=== PATIENT | female | born 1960 | race American Indian/Alaskan Native ===

== ENCOUNTER 2017-03-06 08:57 | Outpatient (CLI) | payer OTHER, MEDICARE ==
--- NOTE | 2017-03-06 10:00 | Ultrasound Report ---
ULTRASOUND PELVIC COMPLETE ULTRASOUND TRANSVAGINAL HISTORY: Abdominal and pelvic pain. TECHNIQUE: Transabdominal and transvaginal ultrasound with color doppler interrogation. The uterus and left ovary are not identified on transabdominal or transvaginal ultrasound. Please correlate with surgical history. I believe I see the right ovary which measures 3.9 x 2.0 x 3.3 cm. The right ovary contains a 1.4 cm simple cyst. There is small pelvic ascites. IMPRESSION: 1.4 cm right ovarian cyst. Assumed hysterectomy and left oophorectomy. Small pelvic ascites.
== END 2017-03-06 08:58 | disposition home or self-care (01) ==
LOC: US 08:57
PROVIDERS: ATTEND Internal Medicine
DX: N83.201 Unspecified ovarian cyst, right side (principal); R18.8 Other ascites; I12.0 Hypertensive chronic kidney disease with stage 5 chronic kidney disease or end stage renal disease; N18.6 End stage renal disease; D63.1 Anemia in chronic kidney disease; Z90.710 Acquired absence of both cervix and uterus; Z87.891 Personal history of nicotine dependence
CPT/HCPCS: 76830; 76856

== ENCOUNTER 2017-03-21 07:10 | Day surgery (SDC) | payer OTHER, MEDICARE ==
[2017-03-21 08:19] LABS: INR 0.93 (0.87-1.13)
[2017-03-21 08:20] LABS: Partial Thromboplastin Time 28.5 Sec. (24.2-36.6)
--- NOTE | 2017-03-21 11:24 | Short Stay Summary ---
Short Stay Documentation Date of service: 03/21/17 - History Principal diagnosis: Ascites Past Medical History: renal failure - Allergies and Medications Current Medications: Allergies chlorhexidine Allergy (Verified 06/20/16 08:45) Itching hydralazine Allergy (Verified 06/06/16 14:28) Unknown shellfish derived Allergy (Verified 10/01/14 09:46) Swelling itching iodine Adverse Reaction (Verified 10/06/14 06:31) Swelling shortness of breath Home Medications Medication Instructions Recorded Confirmed Last Taken Type Dialyvite 800 Plus D Wafer 1 tab PO DAILY #0 03/17/15 06/20/16 06/19/16 History Calcium Acetate [Phoslo] 667 mg PO TIDWM capsule 03/24/15 03/21/17 03/20/17 Rx 667mg Nebivolol (Nf) [Bystolic (Nf)] 20 mg PO DAILY 06/06/16 03/21/17 03/20/17 History 5mg Minoxidil [Loniten] 2.5 mg PO DAILY 03/21/17 03/21/17 03/18/17 History 2.5mg - Physical exam General appearance: no acute distress Gastrointestinal: distended - Brief post op/procedure progress note Date of procedure: 03/21/17 Pre-op diagnosis: Ascites Post-op diagnosis: same Procedure: Paracentesis Anesthesia: local Surgeon: GUERRERO NATARAJAN Estimated blood loss: none Specimen disposition: to lab Condition: stable - Disposition Condition at discharge: Good Disposition: DC-01 TO HOME OR SELFCARE
--- NOTE | 2017-03-21 11:27 | Cat Scan Report ---
CT-guided paracentesis. History: Ascites. Procedure: A survey exam revealed moderate ascites. The skin surface overlying the right abdomen was prepped and draped using sterile technique. Local anesthetic was injected in the skin. Using CT guidance, a 5 [place] Yueh catheter was inserted into fluid collection in the right upper quadrant. 1550 cc of clear serous fluid was aspirated and sent for appropriate laboratory studies. The patient tolerated the procedure well clinically and was discharged in satisfactory condition.
[2017-03-21 11:56] VITALS: BP 141/82
[2017-03-21 14:05] LABS: Basophils Body Fluid 0 %; Eosinophils Body Fluid 0 %; Reactive Lymph Body Fluid 0 %
--- NOTE | 2017-03-21 15:03 | Ultrasound Report ---
Ultrasound guided paracentesis. History: Ascites. Procedure: There is a moderate volume of ascitic fluid. The largest collection is located in the right upper quadrant. The patient's skin surface was prepped and draped using sterile technique. Local anesthetic was injected into the skin. Using sonographic guidance, a 5 [place] Yueh catheter was inserted into the region of interest, but no fluid was aspirated on 3 successive occasions. Therefore the patient was transferred to the CT scanner for the procedure was successfully performed. Please see separate report of CT guided paracentesis.
[2017-03-26 23:45] LABS: Total Protein,Body Fluid < 3.0 (15.0-45.0); Triglycerides,Body Fluid 26
== END 2017-03-21 12:00 | disposition home or self-care (01) ==
LOC: CATHLABREC 07:10 → EDSTATUS 09:00 → CATHLABREC 12:00
PROVIDERS: ATTEND Internal Medicine Gastroenterology
DX: R18.8 Other ascites (principal)
CPT/HCPCS: 36415; 49083; 82040; 82150; 84160; 84478; 85610; 85730; 87116; 88112; 88305; 89051; C1729

== ENCOUNTER 2018-02-18 13:31 | Emergency (ER) | payer MEDICARE ==
[2018-02-18 15:08] LABS: Hematocrit 23.6 % (30.3-42.9); Hemoglobin 7.7 gm/dl (10.1-14.3); Mean Corpuscular HGB Conc 33 % (30-34); Mean Corpuscular Hemoglobin 30 pg (28-32); Mean Corpuscular Volume 93 fl (79-97); Platelet Count 295 K/mm3 (140-440); Red Blood Count 2.55 M/mm3 (3.65-5.03); Red Cell Distribution Width 14.5 % (13.2-15.2)
--- NOTE | 2018-02-18 15:12 | Emergency Department Report ---
ED General Adult HPI - General Chief complaint: Recheck/Abnormal Lab/Rx Stated complaint: LOW HEMAGLOBIN Time Seen by Provider: 02/18/18 14:07 Source: patient Mode of arrival: Ambulatory Limitations: No Limitations - History of Present Illness Initial comments: Patient presents to emergency department for abnormal lab value. Patient is a dialysis patient. Peritoneal dialysis and has a history of chronic anemia. Patient sent to the ED because she was told her hemoglobin was 6.2. Patient denies any lightheadedness, chest pain, shortness of breath. Patient has had blood transfusions in the past with the last one being in August of this year. - Related Data Home Medications Medication Instructions Recorded Confirmed Last Taken Dialyvite 800 Plus D Wafer 1 tab PO DAILY #0 03/17/15 06/20/16 06/19/16 Nebivolol (Nf) [Bystolic (Nf)] 20 mg PO DAILY 06/06/16 03/21/17 03/20/17 5mg Minoxidil [Loniten] 2.5 mg PO DAILY 03/21/17 03/21/17 03/18/17 2.5mg Previous Rx's Medication Instructions Recorded Last Taken Type Calcium Acetate [Phoslo] 667 mg PO TIDWM capsule 03/24/15 03/20/17 Rx 667mg Allergies Allergy/AdvReac Type Severity Reaction Status Date / Time chlorhexidine Allergy Itching Verified 06/20/16 08:45 hydralazine Allergy Unknown Verified 06/06/16 14:28 shellfish derived Allergy Swelling Verified 10/01/14 09:46 iodine AdvReac Swelling Verified 10/06/14 06:31 ED Review of Systems ROS: Stated complaint: LOW HEMAGLOBIN Other details as noted in HPI Comment: All other systems reviewed and negative Constitutional: denies: chills, fever Eyes: denies: eye pain, eye discharge, vision change ENT: denies: ear pain, throat pain Respiratory: denies: cough, shortness of breath, wheezing Cardiovascular: denies: chest pain, palpitations Endocrine: no symptoms reported Gastrointestinal: denies: abdominal pain, nausea, diarrhea Genitourinary: denies: urgency, dysuria, discharge Musculoskeletal: denies: back pain, joint swelling, arthralgia Skin: denies: rash, lesions Neurological: denies: headache, weakness, paresthesias Psychiatric: denies: anxiety, depression Hematological/Lymphatic: denies: easy bleeding, easy bruising ED Past Medical Hx - Past Medical History Hx Hypertension: Yes Hx Heart Attack/AMI: No Hx Congestive Heart Failure: No Hx Diabetes: No Hx Deep Vein Thrombosis: No Hx Pulmonary Embolism: Yes (20 YEARS AGO) Hx GERD: Yes Hx Liver Disease: No Hx Renal Disease: Yes (PD) Hx Sickle Cell Disease: No Hx Arthritis: No Hx Headaches / Migraines: Yes Hx Seizures: No Hx Kidney Stones: No Hx Asthma: No Hx COPD: No Hx Dementia: No Hx HIV: No Additional medical history: Bilateral Subdural Hematoma - Surgical History Hx Coronary Stent: No Hx Pacemaker: No Hx Internal Defibrillator: No Hx Cholecystectomy: Yes Hx Breast Surgery: Yes (BREAST AUGMENTATION BILATERAL ) - Social History Smoking Status: Never Smoker Substance Use Type: None - Medications Home Medications: Home Medications Medication Instructions Recorded Confirmed Last Taken Type Dialyvite 800 Plus D Wafer 1 tab PO DAILY #0 03/17/15 06/20/16 06/19/16 History Calcium Acetate [Phoslo] 667 mg PO TIDWM capsule 03/24/15 03/21/17 03/20/17 Rx 667mg Nebivolol (Nf) [Bystolic (Nf)] 20 mg PO DAILY 06/06/16 03/21/17 03/20/17 History 5mg Minoxidil [Loniten] 2.5 mg PO DAILY 03/21/17 03/21/17 03/18/17 History 2.5mg ED Physical Exam - General Limitations: No Limitations General appearance: alert, in no apparent distress - Head Head exam: Present: atraumatic, normocephalic - Eye Eye exam: Present: normal appearance - ENT ENT exam: Present: mucous membranes moist - Neck Neck exam: Present: normal inspection - Respiratory Respiratory exam: Present: normal lung sounds bilaterally. Absent: respiratory distress - Cardiovascular Cardiovascular Exam: Present: regular rate, normal rhythm. Absent: systolic murmur, diastolic murmur, rubs, gallop - GI/Abdominal GI/Abdominal exam: Present: soft, normal bowel sounds. Absent: distended, tenderness - Rectal Rectal exam: Present: heme (-) stool, other (chaperoned by nurse Kalyan De Los Santos) - Extremities Exam Extremities exam: Present: normal inspection - Back Exam Back exam: Present: normal inspection - Neurological Exam Neurological exam: Present: alert, oriented X3, CN II-XII intact. Absent: motor sensory deficit - Psychiatric Psychiatric exam: Present: normal affect, normal mood - Skin Skin exam: Present: warm, dry, intact, normal color. Absent: rash ED Course Vital Signs 02/18/18 13:43 Temperature 99.4 F Pulse Rate 81 Respiratory 18 Rate Blood Pressure 120/80 O2 Sat by Pulse 99 Oximetry ED Medical Decision Making - Lab Data Result diagrams: 02/18/18 13:48 02/18/18 14:30 - Medical Decision Making Discussed results with patient and with a hemoglobin of 7.7 blood transfusion is not required. Patient states that she is aware of that and will follow up with a associate professor of history for possible Epogen shot Critical care attestation.: If time is entered above; I have spent that time in minutes in the direct care of this critically ill patient, excluding procedure time. ED Disposition Clinical Impression: Anemia in chronic kidney disease Disposition: DC-01 TO HOME OR SELFCARE Is pt being admited?: No Does the pt Need Aspirin: No Condition: Stable Instructions: Anemia (ED) Additional Instructions: Return if worse Referrals: MITZI ANTHONY MD [Staff Physician] - 3-[address] [facility] [Outside] - 3-5 Days Time of Disposition: 15:49
[2018-02-18 15:26] LABS: Albumin 2.9 g/dL (3.9-5); Calcium 7.3 mg/dL (8.4-10.2)
[2018-02-18 16:19] VITALS: BP 95/53
[2018-02-18 17:28] LABS: INR 0.91 (0.87-1.13)
[2018-02-18 17:29] LABS: Partial Thromboplastin Time 33.7 Sec. (24.2-36.6)
== END 2018-02-18 16:20 | disposition home or self-care (01) ==
LOC: ED 13:31
DX: I12.0 Hypertensive chronic kidney disease with stage 5 chronic kidney disease or end stage renal disease (principal); N18.6 End stage renal disease; D63.1 Anemia in chronic kidney disease; G43.909 Migraine, unspecified, not intractable, without status migrainosus; Z99.2 Dependence on renal dialysis; Z90.49 Acquired absence of other specified parts of digestive tract; Z88.8 Allergy status to other drugs, medicaments and biological substances; Z91.013 Allergy to seafood
CPT/HCPCS: 36415; 80053; 85027; 85610; 85730; 86850; 86900; 86901; 99283

== ENCOUNTER 2018-09-16 02:58 | Inpatient (IN) | payer MEDICARE ==
--- NOTE | 2018-09-16 03:39 | XRay Report ---
FINAL REPORT PROCEDURE: XR CHEST ROUTINE 2V TECHNIQUE: PA and lateral chest radiographs were obtained. CPT 17769 HISTORY: KORY COMPARISON: No prior studies are available for comparison. FINDINGS: Heart: Normal. Mediastinum/Vessels: Normal. Lungs/Pleural space: Normal. Bony thorax: No acute osseous abnormality. Other: IMPRESSION: Normal examination.
[2018-09-16 03:53] LABS: Basophils # (Auto) 0.1 K/mm3 (0.0-0.1); Basophils % (Auto) 0.6 % (0.0-1.8); Eosinophils # (Auto) 0.1 K/mm3 (0.0-0.4); Eosinophils % (Auto) 1.5 % (0.0-4.3); Hematocrit 28.3 % (30.3-42.9); Hemoglobin 9.2 gm/dl (10.1-14.3); Lymphocytes # (Auto) 0.8 K/mm3 (1.2-5.4); Lymphocytes % (Auto) 8.8 % (13.4-35.0); Mean Corpuscular HGB Conc 32 % (30-34); Mean Corpuscular Volume 89 fl (79-97); Monocytes % (Auto) 10.8 % (0.0-7.3); Platelet Count 283 K/mm3 (140-440); Red Cell Distribution Width 14.8 % (13.2-15.2)
[2018-09-16 04:07] LABS: Calcium 7.5 mg/dL (8.4-10.2)
[2018-09-16 04:31] LABS: Chol/HDL Ratio 2.53 %
[2018-09-16] MEDS ORDERED: ASPIRIN PO ONE (04:36)
[2018-09-16] MEDS ORDERED: NACL 0.9% 250ML 250 ML IV ONE (04:44)
[2018-09-16] MEDS: NACL 0.9% 500 ML 500 ML IV ONE ×2 (06:12→07:28)
[2018-09-16] MEDS ORDERED: SUBLIMAZE IV ONE ×2 (06:19→10:55)
[2018-09-16] MEDS ORDERED: NITROSTAT SL PRN (06:20)
--- NOTE | 2018-09-16 06:21 | Emergency Department Report ---
ED General Adult HPI - General Chief complaint: Chest Pain Stated complaint: KORY Time Seen by Provider: 09/16/18 06:09 Source: patient, RN notes reviewed, old records reviewed Mode of arrival: Ambulatory Limitations: Physical Limitation - History of Present Illness Initial comments: This is a 58-year-old female. The patient is not known to this provider. The patient has a past medical history of anemia, pulmonary embolism, hypertension, end-stage renal disease, currently on peritoneal dialysis. The patients private commercial insulator is Dr. Mccullough. The patient presents to the emergency room today with a complaint of chest pain. The chest pain is central and sharp. It is associated with back pain. It increases with palpation, deep inspiration and position. The patient denies vomiting, hematemesis. The patient denies leg pain, leg swelling. In the emergency room, the patient is found to be hypotensive, with a blood pressure anywhere from the 60s to the 80s. She is given IV fluids and pain medication. The patient's pain persisted. Give n history of end-stage renal disease, chest pain and hypotension, an emergent CT angiogram of the chest is obtained, after discussion with patient and her consulting commercial insulator, which is negative for pulmonary embolus. Given her history of end-stage renal disease on dialysis, with hypotension and positional chest pain, we were concerned about a possible pericardial effusion or Not. This provider attempted a bedside ultrasound to assess for left ventricular systolic function, and to assess for effusion, however the patient had difficulty cooperating with the exam, and this provider was not able to obtain accurate images to exclude large effusion or tamponade. Therefore, an emergent cardiology consultation was requested, as well as an emergent echocardiogram. Discussed the case with covering glass smoother, Dr. Echevarria, who indicated their group could interpret echocardiogram, and indicated their group could consult on the patient once admitted. The echocardiogram did not demonstrate any evidence of effusion, tampanode, demonstrated essentially intact left ventricular systolic function. Patient given 2 L IV fluid and pain medication, and still hypotensive. Therefore, a central line was placed. Risks, benefits, alternatives discussed with patient and , who gave written and informed consent for central line. Attempted placement into the left internal jugular vein, however, this was not successful, as the vein was very difficult to cannulate secondary to persistent collapse. Therefore, a sterile left groin central line was placed using ultrasound guidance, with no difficulty, with no obvious complications. The patient was started on norepinephrine, and the patient was admitted to the medical service, under the service of Dr. Murray, and critical care physician, Dr. Bravo, will follow consultation. Currently blood pressure in the high 90s, on norepinephrine infusion. Patient and family updated on laboratory studies and an status. -: Gradual Location: chest, back Quality: aching Consistency: intermittent Improves with: other Worsens with: other Associated Symptoms: chest pain, cough, loss of appetite, malaise, shortness of breath, weakness. denies: confusion, diaphoresis, fever/chills, headaches, nausea/vomiting, rash, seizure, syncope - Related Data Home Medications Medication Instructions Recorded Confirmed Last Taken Ergocalciferol (Vitamin D2) 50,000 unit PO QWEEK 09/16/18 09/16/18 Unknown [Drisdol] Hydrocortisone [Anucort-HC SUPPOS] 25 mg RC BID 09/16/18 09/16/18 Unknown Ondansetron [Zofran TAB] 4 mg PO Q8HR PRN 09/16/18 09/16/18 Unknown Zolpidem [Ambien] 10 mg PO QHS 09/16/18 09/16/18 Unknown Allergies Allergy/AdvReac Type Severity Reaction Status Date / Time chlorhexidine Allergy Itching Verified 06/20/16 08:45 hydralazine Allergy Unknown Verified 06/06/16 14:28 shellfish derived Allergy Swelling Verified 10/01/14 09:46 iodine AdvReac Swelling Verified 10/06/14 06:31 ED Review of Systems ROS: Stated complaint: KORY Other details as noted in HPI Constitutional: malaise Eyes: denies: vision change ENT: congestion Respiratory: denies: wheezing Cardiovascular: chest pain Gastrointestinal: denies: abdominal pain Genitourinary: denies: discharge Musculoskeletal: arthralgia Skin: denies: lesions Neurological: weakness Psychiatric: anxiety ED Past Medical Hx - Past Medical History Previous Medical History?: Yes Hx Hypertension: Yes Hx Heart Attack/AMI: No Hx Congestive Heart Failure: No Hx Diabetes: No Hx Deep Vein Thrombosis: No Hx Pulmonary Embolism: Yes (20 YEARS AGO) Hx GERD: Yes Hx Liver Disease: No Hx Renal Disease: Yes (PD) Hx Sickle Cell Disease: No Hx Arthritis: No Hx Headaches / Migraines: Yes Hx Seizures: No Hx Kidney Stones: No Hx Asthma: No Hx COPD: No Hx Dementia: No Hx HIV: No Additional medical history: Bilateral Subdural Hematoma,Pancreatitis 02/2018, dialysis - Surgical History Past Surgical History?: Yes Hx Coronary Stent: No Hx Pacemaker: No Hx Internal Defibrillator: No Hx Cholecystectomy: Yes Hx Breast Surgery: Yes (BREAST AUGMENTATION BILATERAL ) Additional Surgical History: hysterectomy,gastric bypass, dialysis fistula left arm, Peritoneal Dialysis - Social History Smoking Status: Former Smoker Substance Use Type: None - Medications Home Medications: Home Medications Medication Instructions Recorded Confirmed Last Taken Type Ergocalciferol (Vitamin D2) 50,000 unit PO QWEEK 09/16/18 09/16/18 Unknown History [Drisdol] Hydrocortisone [Anucort-HC SUPPOS] 25 mg RC BID 09/16/18 09/16/18 Unknown History Ondansetron [Zofran TAB] 4 mg PO Q8HR PRN 09/16/18 09/16/18 Unknown History Zolpidem [Ambien] 10 mg PO QHS 09/16/18 09/16/18 Unknown History ED Physical Exam - General Limitations: Physical Limitation General appearance: alert, anxious, in distress - Head Head exam: Present: atraumatic, normocephalic - Eye Eye exam: Present: normal appearance, EOMI. Absent: nystagmus - ENT ENT exam: Present: normal exam, normal orophraynx, mucous membranes moist, normal external ear exam - Neck Neck exam: Present: normal inspection, full ROM. Absent: tenderness, meningismus - Respiratory Respiratory exam: Present: decreased breath sounds. Absent: respiratory distress, rales, rhonchi, stridor - Cardiovascular Cardiovascular Exam: Present: regular rate, normal rhythm, normal heart sounds. Absent: bradycardia, tachycardia, irregular rhythm, systolic murmur, diastolic murmur, rubs, gallop - GI/Abdominal GI/Abdominal exam: Present: soft, other (there is a peritoneal dialysis access catheter noted, with no redness, pus, streaking.). Absent: distended, tenderness, guarding, rigid, pulsatile mass - Extremities Exam Extremities exam: Present: normal inspection (left upper extremity fistula, with no redness, pus or streaking), full ROM, other (2+ pulses noted in the bilateral upper, lower extremities. Compartments soft. No long bony tenderness. The pelvis is stable.). Absent: joint swelling, calf tenderness - Back Exam Back exam: Present: normal inspection, full ROM. Absent: tenderness, CVA tenderness (R), paraspinal tenderness, vertebral tenderness - Neurological Exam Neurological exam: Present: alert, other (Extraocular movements intact. Tongue midline. No facial droop. Facial sensation intact to light touch in the V1, V2, V3 distribution bilaterally. 5 and 5 strength in 4 extremities.. Sensation is intact to light touch in 4 extremities.). Absent: motor sensory deficit - Psychiatric Psychiatric exam: Present: normal affect, normal mood - Skin Skin exam: Present: warm, dry, intact, normal color. Absent: rash ED Course Vital Signs 09/16/18 09/16/18 09/16/18 04:46 05:00 05:16 Pulse Rate 81 78 76 Respiratory 22 19 16 Rate Blood Pressure 83/50 83/50 78/45 Blood Pressure [Right] O2 Sat by Pulse 98 99 Oximetry 09/16/18 09/16/18 09/16/18 05:30 05:46 06:22 Pulse Rate 79 88 Respiratory 17 26 H Rate Blood Pressure 78/45 77/44 78/45 Blood Pressure [Right] O2 Sat by Pulse 86 90 Oximetry 09/16/18 09/16/18 09/16/18 06:30 06:46 06:48 Pulse Rate Respiratory Rate Blood Pressure 78/45 77/44 Blood Pressure 60/40 [Right] O2 Sat by Pulse 96 99 Oximetry 09/16/18 09/16/18 09/16/18 07:00 07:16 07:30 Pulse Rate 71 74 Respiratory 20 18 Rate Blood Pressure 77/44 82/45 82/38 Blood Pressure [Right] O2 Sat by Pulse 99 100 95 Oximetry 09/16/18 09/16/18 09/16/18 07:45 07:54 08:00 Pulse Rate 76 70 70 Respiratory 22 23 Rate Blood Pressure 82/45 72/33 Blood Pressure 81/40 [Right] O2 Sat by Pulse 98 100 Oximetry 09/16/18 09/16/18 09/16/18 08:15 08:30 08:45 Pulse Rate 71 71 72 Respiratory 16 23 18 Rate Blood Pressure 67/37 70/32 92/44 Blood Pressure [Right] O2 Sat by Pulse 100 100 95 Oximetry 09/16/18 09/16/18 09/16/18 09:00 09:16 09:30 Pulse Rate 71 70 Respiratory 16 16 Rate Blood Pressure 82/48 82/48 82/48 Blood Pressure [Right] O2 Sat by Pulse 99 100 99 Oximetry 09/16/18 09/16/18 09/16/18 09:46 10:00 10:16 Pulse Rate 71 76 81 Respiratory 21 17 20 Rate Blood Pressure 82/48 82/48 92/52 Blood Pressure [Right] O2 Sat by Pulse 95 97 96 Oximetry 09/16/18 09/16/18 09/16/18 10:30 10:46 11:00 Pulse Rate 80 80 76 Respiratory 20 22 15 Rate Blood Pressure 95/54 95/46 90/49 Blood Pressure [Right] O2 Sat by Pulse 94 98 97 Oximetry 09/16/18 09/16/18 09/16/18 11:15 11:30 11:45 Pulse Rate 80 71 75 Respiratory 18 17 14 Rate Blood Pressure 76/48 97/55 95/53 Blood Pressure [Right] O2 Sat by Pulse 96 100 100 Oximetry - Central Line Placement Left Femoral Consent Obtained: verbal consent, written consent, emergent situation Time Out Performed: Yes Patient Placed on Monitor/Pulse Ox: Yes Prep: mask, gown, gloves Central Line Prep: Povidone-Iodine 1%, Chlorhexidine scrub Local Anesthesia Used: Lidocaine 1%, with Epi Amount of Anesthesia Used (mls): 15 Ultrasound Used for Placement: Yes Central Line Lumen Inserted: triple Bloods Obtained for Lab: Yes Central Line Position: good blood return, all ports aspirated, flus, sutured in place with 2-0 Dressing Applied: Tegaderm Patient Tolerated Procedure: well Complications: none Additional Comments: Initially attempted left internal jugular cannulation, after standard sterile barrier technique, and infused 10 mL of 1% lidocaine with epinephrine into the left neck. The internal jugular vein was visualized, and collapse, but was able to be cannulated with some blood return. However, once the guidewire was inserted, there was resistance. Therefore, this was aborted, in favor of the left femoral line. The patient tolerated this adequately. No untoward complications noted. ED Medical Decision Making - Lab Data Result diagrams: 09/16/18 03:29 09/16/18 03:29 Vital Signs 09/16/18 09/16/18 09/16/18 04:46 05:00 05:16 Pulse Rate 81 78 76 Respiratory 22 19 16 Rate Blood Pressure 83/50 83/50 78/45 Blood Pressure [Right] O2 Sat by Pulse 98 99 Oximetry 09/16/18 09/16/18 09/16/18 05:30 05:46 06:22 Pulse Rate 79 88 Respiratory 17 26 H Rate Blood Pressure 78/45 77/44 78/45 Blood Pressure [Right] O2 Sat by Pulse 86 90 Oximetry 09/16/18 09/16/18 09/16/18 06:30 06:46 06:48 Pulse Rate Respiratory Rate Blood Pressure 78/45 77/44 Blood Pressure 60/40 [Right] O2 Sat by Pulse 96 99 Oximetry 09/16/18 09/16/18 09/16/18 07:00 07:16 07:30 Pulse Rate 71 74 Respiratory 20 18 Rate Blood Pressure 77/44 82/45 82/38 Blood Pressure [Right] O2 Sat by Pulse 99 100 95 Oximetry 09/16/18 09/16/18 09/16/18 07:45 07:54 08:00 Pulse Rate 76 70 70 Respiratory 22 23 Rate Blood Pressure 82/45 72/33 Blood Pressure 81/40 [Right] O2 Sat by Pulse 98 100 Oximetry 09/16/18 09/16/18 09/16/18 08:15 08:30 08:45 Pulse Rate 71 71 72 Respiratory 16 23 18 Rate Blood Pressure 67/37 70/32 92/44 Blood Pressure [Right] O2 Sat by Pulse 100 100 95 Oximetry 09/16/18 09/16/18 09/16/18 09:00 09:16 09:30 Pulse Rate 71 70 Respiratory 16 16 Rate Blood Pressure 82/48 82/48 82/48 Blood Pressure [Right] O2 Sat by Pulse 99 100 99 Oximetry 09/16/18 09/16/18 09/16/18 09:46 10:00 10:16 Pulse Rate 71 76 81 Respiratory 21 17 20 Rate Blood Pressure 82/48 82/48 92/52 Blood Pressure [Right] O2 Sat by Pulse 95 97 96 Oximetry 09/16/18 09/16/18 09/16/18 10:30 10:46 11:00 Pulse Rate 80 80 76 Respiratory 20 22 15 Rate Blood Pressure 95/54 95/46 90/49 Blood Pressure [Right] O2 Sat by Pulse 94 98 97 Oximetry 09/16/18 09/16/18 09/16/18 11:15 11:30 11:45 Pulse Rate 80 71 75 Respiratory 18 17 14 Rate Blood Pressure 76/48 97/55 95/53 Blood Pressure [Right] O2 Sat by Pulse 96 100 100 Oximetry Lab Results 09/16/18 09/16/18 09/16/18 Range/Units 03:29 03:29 06:03 WBC 8.9 (4.5-11.0) K/mm3 RBC 3.20 L (3.65-5.03) M/mm3 Hgb 9.2 L (10.1-14.3) gm/dl Hct 28.3 L (30.3-42.9) % MCV 89 (79-97) fl MCH 29 (28-32) pg MCHC 32 (30-34) % RDW 14.8 (13.2-15.2) % Plt Count 283 (140-440) K/mm3 Lymph % (Auto) 8.8 L (13.4-35.0) % [place] % (Auto) 10.8 H (0.0-7.3) % Eos % (Auto) 1.5 (0.0-4.3) % Baso % (Auto) 0.6 (0.0-1.8) % Lymph # 0.8 L (1.2-5.4) K/mm3 [place] # 1.0 H (0.0-0.8) K/mm3 Eos # 0.1 (0.0-0.4) K/mm3 Baso # 0.1 (0.0-0.1) K/mm3 Seg Neutrophils % 78.3 H (40.0-70.0) % Seg Neutrophils # 7.0 (1.8-7.7) K/mm3 PT (12.2-14.9) Sec. INR (0.87-1.13) D-Dimer (0-234) ng/mlDDU Sodium 137 (137-145) mmol/L Potassium 3.3 L (3.6-5.0) mmol/L Chloride 95.0 L (98-107) mmol/L Carbon Dioxide 20 L (22-30) mmol/L Anion Gap 25 mmol/L BUN 81 H (7-17) mg/dL Creatinine 16.4 H (0.7-1.2) mg/dL Estimated GFR 3 ml/min BUN/Creatinine Ratio 5 % Glucose 127 H (65-100) mg/dL Calcium 7.5 L (8.4-10.2) mg/dL Troponin T 0.100 H 0.082 H (0.00-0.029) ng/mL NT-Pro-B Natriuret Pep (0-900) pg/mL Triglycerides 68 (2-149) mg/dL Cholesterol 226 H (50-199) mg/dL LDL Cholesterol Direct 150 H (50-130) mg/dL HDL Cholesterol 89 H (40-59) mg/dL Cholesterol/HDL Ratio 2.53 % 09/16/18 09/16/18 09/16/18 Range/Units 06:44 06:44 09:31 WBC (4.5-11.0) K/mm3 RBC (3.65-5.03) M/mm3 Hgb (10.1-14.3) gm/dl Hct (30.3-42.9) % MCV (79-97) fl MCH (28-32) pg MCHC (30-34) % RDW (13.2-15.2) % Plt Count (140-440) K/mm3 Lymph % (Auto) (13.4-35.0) % [place] % (Auto) (0.0-7.3) % Eos % (Auto) (0.0-4.3) % Baso % (Auto) (0.0-1.8) % Lymph # (1.2-5.4) K/mm3 [place] # (0.0-0.8) K/mm3 Eos # (0.0-0.4) K/mm3 Baso # (0.0-0.1) K/mm3 Seg Neutrophils % (40.0-70.0) % Seg Neutrophils # (1.8-7.7) K/mm3 PT 12.6 (12.2-14.9) Sec. INR 0.90 (0.87-1.13) D-Dimer 301.01 H (0-234) ng/mlDDU Sodium (137-145) mmol/L Potassium (3.6-5.0) mmol/L Chloride (98-107) mmol/L Carbon Dioxide (22-30) mmol/L Anion Gap mmol/L BUN (7-17) mg/dL Creatinine (0.7-1.2) mg/dL Estimated GFR ml/min BUN/Creatinine Ratio % Glucose (65-100) mg/dL Calcium (8.4-10.2) mg/dL Troponin T 0.065 H D (0.00-0.029) ng/mL NT-Pro-B Natriuret Pep 4189 H (0-900) pg/mL Triglycerides (2-149) mg/dL Cholesterol (50-199) mg/dL LDL Cholesterol Direct (50-130) mg/dL HDL Cholesterol (40-59) mg/dL Cholesterol/HDL Ratio % - EKG Data -: EKG Interpreted by Ct EKG shows normal: sinus rhythm Rate: normal - EKG Data 09/16/18 12:00 Sinus, 79 bpm, left axis deviation, borderline left anterior fascicular block, low voltage, QTC prolonged, poor R-wave progression, abnormal EKG, not consistent with ST elevation myocardial infarction, appears grossly unchanged from prior EKG from March 2015, with the exception of a pseudo-normalized T- wave in V2. This EKG is not a STEMI - Radiology Data Radiology results: report reviewed, image reviewed X-ray the chest is negative for acute disease. CT scan of the chest is negative for acute disease. Echocardiogram shows no large effusion, and preserved ejection fraction. Critical Care Time: Yes Critical care time in (mins) excluding proc time.: 60 Critical care attestation.: If time is entered above; I have spent that time in minutes in the direct care of this critically ill patient, excluding procedure time. Critical Care Time: Critical care time includes multiple bedside evaluations, interpretation of laboratory studies, radiology studies, multiple re-evaluations with the patient and her family, explanation of significance of findings, and discussion with multiple consulting services, including hospital medicine, critical care medicine, cardiology. This does not include procedure time. ED Disposition Clinical Impression: Chest pain, ESRD (end stage renal disease), Hypotension Disposition: OP ADMIT IP TO THIS HOSP Is pt being admited?: Yes Does the pt Need Aspirin: No Condition: Critical Instructions: Chest Pain (ED) Referrals: JANICE GONZALEZ [Primary Care Provider] - 3-5 Days
[2018-09-16] MEDS ORDERED: NACL 0.9% 500 ML 500 ML IV ONE ×2 (06:49→08:06)
[2018-09-16] MEDS ORDERED: BENADRYL IV ONE (07:00)
[2018-09-16] MEDS ORDERED: PEPCID IV ONE (07:00)
[2018-09-16] MEDS ORDERED: SOLU-Medrol IV ONE (07:00)
[2018-09-16 07:10] LABS: INR 0.9 (0.87-1.13)
[2018-09-16] MEDS ORDERED: XYLOCAINE 2%/ EPI 1:200,000 INFILTRATI ONE (08:45)
[2018-09-16] MEDS ORDERED: LEVOPHED DRIP 4 MG/NS 250 ML 0 MG/0 ML BAG IV ONE (08:45)
[2018-09-16] MEDS ORDERED: XYLOCAINE 1%/ EPI 1:100,000 INFILTRATI ONE (08:54)
[2018-09-16] MEDS ORDERED: LEVOPHED DRIP 4 MG/NS 250 ML 4 MG/250 ML BAG IV SCH (09:00)
[2018-09-16] MEDS: LEVOPHED DRIP 4 MG/NS 250 ML 4 MG/250 ML BAG IV SCH (09:00)
[2018-09-16] MEDS ORDERED: NACL 0.9% 1000 ML 1,000 ML IV ONE (09:19)
--- NOTE | 2018-09-16 09:40 | History and Physical Report ---
History of Present Illness Date of examination: 09/16/18 Chief complaint: Chest pain History of present illness: 58-year-old -[place] female with past medical history significant for en d-stage renal disease on PD, gastroparesis, anxiety, hypertension presented to the emergency department with complaints of chest pain that started yesterday around lunchtime. Midsternal constant chest pain, 10 out of 10 intensity, sharp, with radiation to the back, associated shortness of breath, no other aggravating or aggravating factors identified. Patient is complaining dizziness but didn't passed out. In the emergency department patient was hypotensive and was given IV fluids with significant improvement, central line was placed and was placed on norepinephrine. REVIEW OF SYSTEMS: GENERAL: no weight change, no fatigue, no fever HEAD: no head ache EYES: no blurry vision, no acute visual loss EARS: no hearing loss, no discharge, no earache NOSE: no stuffiness, no sneezing, no discharge MOUTH, THROAT AND NECK: no bleeding gums, no sore throat, no swollen neck CARDIAC: As stated in HPI. RESPIRATORY: As stated in the HPI. GI: no decreased appetite, no nausea, no vomiting, no dysphagia, no diarrhea, no constipation, no abdominal pain URINARY: no change in frequency, no urgency, no polyuria, no hematuria, no incontinence MUSCULOSKELETAL: no muscle weakness, no pain, no joint stiffness NEUROLOGIC: no loss of sensation/numbness, no tingling, no tremors, no weakness/paralysis HEMATOLOGIC: no anemia, no easy bruising SKIN: no rashes ENDOCRINE: no heat/cold intolerance, no polyuria, no polydipsia, no thyroid problems, no diabetes PSYCHIATRIC: no anxiety, no depression, no suicidal ideations Past History Past Medical History: hypertension, renal failure Past Surgical History: hysterectomy Social history: full code. denies: smoking, alcohol abuse, prescription drug abuse, IV drug use Family history: no significant family history Medications and Allergies Allergies Allergy/AdvReac Type Severity Reaction Status Date / Time chlorhexidine Allergy Itching Verified 06/20/16 08:45 hydralazine Allergy Unknown Verified 06/06/16 14:28 shellfish derived Allergy Swelling Verified 10/01/14 09:46 iodine AdvReac Swelling Verified 10/06/14 06:31 Home Medications Medication Instructions Recorded Confirmed Last Taken Type Ergocalciferol (Vitamin D2) 50,000 unit PO QWEEK 09/16/18 09/16/18 Unknown History [Drisdol] Hydrocortisone [Anucort-HC SUPPOS] 25 mg RC BID 09/16/18 09/16/18 Unknown History Ondansetron [Zofran TAB] 4 mg PO Q8HR PRN 09/16/18 09/16/18 Unknown History Zolpidem [Ambien] 10 mg PO QHS 09/16/18 09/16/18 Unknown History Active Meds: Active Medications Norepinephrine (Levophed Drip 4 Mg/Ns 250 Ml) 4 mg in 250 mls @ 7.5 mls/hr IV TITR DIMITRI; Protocol Sodium Chloride (Nacl 0.9% 1000 Ml) 1,000 mls @ 999 mls/hr IV BOLUS ONE Stop: 09/16/18 10:19 Cefepime HCl (Maxipime/Ns 1 Gm/100 Ml) 1 gm in 100 mls @ 200 mls/hr IV Q8HR DIMITRI; Protocol Sodium Chloride (Nacl 0.9% 1000 Ml) 2,000 mls @ 999 mls/hr IV DIRECT DIMITRI Exam - Physical Exam Narrative exam: Patient was in distress from pain The patient appeared well nourished and normally developed. Vital signs as documented. Head exam is unremarkable. No scleral icterus . Neck is without jugular venous distension, thyromegaly, or carotid bruits. Lungs are clear to auscultation. Cardiac exam reveals regular rate and Rhythm. Abdominal exam reveals normal bowel sounds, no masses, no organomegaly and no aortic enlargement. Extremities are nonedematous and both femoral and pedal pulses are normal. 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 No focal weakness. - Constitutional Vitals: Temp Pulse Resp BP Pulse Ox 72 18 82/48 99 09/16/18 08:45 09/16/18 08:45 09/16/18 09:00 09/16/18 09:00 Results - Labs CBC & Chem 7: 09/16/18 03:29 09/16/18 03:29 Labs: Laboratory Last Values WBC 8.9 K/mm3 (4.5-11.0) 09/16/18 03:29 RBC 3.20 M/mm3 (3.65-5.03) L 09/16/18 03:29 Hgb 9.2 gm/dl (10.1-14.3) L 09/16/18 03:29 Hct 28.3 % (30.3-42.9) L 09/16/18 03:29 MCV 89 fl (79-97) 09/16/18 03:29 MCH 29 pg (28-32) 09/16/18 03:29 MCHC 32 % (30-34) 09/16/18 03:29 RDW 14.8 % (13.2-15.2) 09/16/18 03:29 Plt Count 283 K/mm3 (140-440) 09/16/18 03:29 Lymph % (Auto) 8.8 % (13.4-35.0) L 09/16/18 03:29 [place] % (Auto) 10.8 % (0.0-7.3) H 09/16/18 03:29 Eos % (Auto) 1.5 % (0.0-4.3) 09/16/18 03:29 Baso % (Auto) 0.6 % (0.0-1.8) 09/16/18 03:29 Lymph # 0.8 K/mm3 (1.2-5.4) L 09/16/18 03:29 [place] # 1.0 K/mm3 (0.0-0.8) H 09/16/18 03:29 Eos # 0.1 K/mm3 (0.0-0.4) 09/16/18 03:29 Baso # 0.1 K/mm3 (0.0-0.1) 09/16/18 03:29 Seg Neutrophils % 78.3 % (40.0-70.0) H 09/16/18 03:29 Seg Neutrophils # 7.0 K/mm3 (1.8-7.7) 09/16/18 03:29 PT 12.6 Sec. (12.2-14.9) 09/16/18 06:44 INR 0.90 (0.87-1.13) 09/16/18 06:44 D-Dimer 301.01 ng/mlDDU (0-234) H 09/16/18 06:44 Sodium 137 mmol/L (137-145) 09/16/18 03:29 Potassium 3.3 mmol/L (3.6-5.0) L 09/16/18 03:29 Chloride 95.0 mmol/L (98-107) L 09/16/18 03:29 Carbon Dioxide 20 mmol/L (22-30) L 09/16/18 03:29 Anion Gap 25 mmol/L 09/16/18 03:29 BUN 81 mg/dL (7-17) H 09/16/18 03:29 Creatinine 16.4 mg/dL (0.7-1.2) H 09/16/18 03:29 Estimated GFR 3 ml/min 09/16/18 03:29 BUN/Creatinine Ratio 5 % 09/16/18 03:29 Glucose 127 mg/dL (65-100) H 09/16/18 03:29 Calcium 7.5 mg/dL (8.4-10.2) L 09/16/18 03:29 Troponin T 0.082 ng/mL (0.00-0.029) H 09/16/18 06:03 NT-Pro-B Natriuret Pep 4189 pg/mL (0-900) H 09/16/18 06:44 Triglycerides 68 mg/dL (2-149) 09/16/18 03:29 Cholesterol 226 mg/dL (50-199) H 09/16/18 03:29 LDL Cholesterol Direct 150 mg/dL (50-130) H 09/16/18 03:29 HDL Cholesterol 89 mg/dL (40-59) H 09/16/18 03:29 Cholesterol/HDL Ratio 2.53 % 09/16/18 03:29 Assessment and Plan Assessment and plan: Hypotension - Infectious vs dehydration - Patient is empirically on IV cefepime and vancomycin - IV fluids, on pressor - Critical care consulted NSTEMI - In the setting of ESRD - Cardiology consulted - Echo normal ESRD on PD - Nephrology consulted DVT prophylaxis - On heparin Disposition - Admit to ICU The high probability of a clinically significant, sudden or life threatening deterioration of the [CV, renal] system(s) required my full and direct att ention, intervention and personal management. The aggregate critical care time was [31] minutes. This time is in addition to time spent performing reported procedures but includes the following: [x] Data Review and interpretation [x] Patient assessment and monitoring of vital signs [x] Documentation [x] Medication orders and management Advance Directives: Yes VTE prophylaxis?: Chemical Plan of care discussed with patient/family: Yes
--- NOTE | 2018-09-16 09:53 | Cat Scan Report ---
CT of the chest: Severe hypotension. Dialysis patient. Following administration of IV contrast transverse images were obtained through the chest with coronal and sagittal 2-D reformatted images as well as MIP images. There is good opacification of the pulmonary vessels cardiac chambers and thoracic aorta. There is no hilar nor mediastinal adenopathy. The central airways are patent. There are no filling defects in the pulmonary vessels vessels or cardiac chambers. The thoracic aorta is normal in size and contour. No evidence of pericardial effusion. The cardiac chambers are grossly normal in size. There is slight prominence of the pulmonary venous structures. The lungs however are clear of any infiltrate or nodule and there are no effusions. The bony structures are generally unremarkable for age. Images carried below the hemidiaphragm do demonstrate fluid around the liver and spleen consistent with peritoneal dialysis. Impressions: 1. No evidence of pulmonary embolus. 2. Some question concerning mild venous congestion.
[2018-09-16] MEDS ORDERED: VANCOMYCIN PHARMACY TO DOSE IV SCH (10:00)
[2018-09-16] MEDS ORDERED: MAXIPIME/NS 1 GM/100 ML 1 GM/100 ML BAG IV SCH (10:00)
[2018-09-16] MEDS ORDERED: NACL 0.9% 1000 ML 2,000 ML IV SCH (10:00)
[2018-09-16] MEDS ORDERED: SUBLIMAZE ONE (10:55)
--- NOTE | 2018-09-16 12:26 | Consultation ---
History of Present Illness Consult date: 09/16/18 Requesting physician: GUERRERO SMART Reason for consult: other History of present illness: PULMONARY/CCM CONSULT NOTE (Full dictation # [id number]) Please see dictated notes for full details Medications and Allergies Allergies Allergy/AdvReac Type Severity Reaction Status Date / Time chlorhexidine Allergy Itching Verified 06/20/16 08:45 hydralazine Allergy Unknown Verified 06/06/16 14:28 shellfish derived Allergy Swelling Verified 10/01/14 09:46 iodine AdvReac Swelling Verified 10/06/14 06:31 Home Medications Medication Instructions Recorded Confirmed Last Taken Type Ergocalciferol (Vitamin D2) 50,000 unit PO QWEEK 09/16/18 09/16/18 Unknown History [Drisdol] Hydrocortisone [Anucort-HC SUPPOS] 25 mg RC BID 09/16/18 09/16/18 Unknown History Ondansetron [Zofran TAB] 4 mg PO Q8HR PRN 09/16/18 09/16/18 Unknown History Zolpidem [Ambien] 10 mg PO QHS 09/16/18 09/16/18 Unknown History Active Meds: Active Medications Norepinephrine (Levophed Drip 4 Mg/Ns 250 Ml) 4 mg in 250 mls @ 7.5 mls/hr IV TITR DIMITRI; Protocol Last Titration: 09/16/18 11:29 Dose: 4 mcg/min, 15 mls/hr Documented by: Cefepime HCl (Maxipime/Ns 1 Gm/100 Ml) 1 gm in 100 mls @ 200 mls/hr IV Q8HR DIMITRI; Protocol Sodium Chloride (Nacl 0.9% 1000 Ml) 2,000 mls @ 999 mls/hr IV DIRECT DIMITRI Physical Examination Vital signs: Vital Signs Pulse Resp BP Pulse Ox 81 22 83/50 98 09/16/18 04:46 09/16/18 04:46 09/16/18 04:46 09/16/18 04:46 Results - Laboratory Findings CBC and BMP: 09/16/18 03:29 09/16/18 03:29 PT/INR, D-dimer PT 12.6 Sec. (12.2-14.9) 09/16/18 06:44 INR 0.90 (0.87-1.13) 09/16/18 06:44 D-Dimer 301.01 ng/mlDDU (0-234) H 09/16/18 06:44 Abnormal lab findings: Abnormal Labs 09/16/18 09/16/18 09/16/18 03:29 03:29 06:03 RBC 3.20 L Hgb 9.2 L Hct 28.3 L Lymph % (Auto) 8.8 L [place] % (Auto) 10.8 H Lymph # 0.8 L [place] # 1.0 H Seg Neutrophils % 78.3 H D-Dimer Potassium 3.3 L Chloride 95.0 L Carbon Dioxide 20 L BUN 81 H Creatinine 16.4 H Glucose 127 H Calcium 7.5 L Troponin T 0.100 H 0.082 H NT-Pro-B Natriuret Pep Cholesterol 226 H LDL Cholesterol Direct 150 H HDL Cholesterol 89 H 09/16/18 09/16/18 09/16/18 06:44 06:44 09:31 RBC Hgb Hct Lymph % (Auto) [place] % (Auto) Lymph # [place] # Seg Neutrophils % D-Dimer 301.01 H Potassium Chloride Carbon Dioxide BUN Creatinine Glucose Calcium Troponin T 0.065 H D NT-Pro-B Natriuret Pep 4189 H Cholesterol LDL Cholesterol Direct HDL Cholesterol
[2018-09-16] MEDS ORDERED: VANCOMYCIN 1,250 MG in NACL 0.9% 250ML 250 ML IV ONE (13:00)
[2018-09-16] MEDS ORDERED: NACL 0.9% 1000 ML 1,000 ML ONE ×2 (13:59→16:26)
[2018-09-16] MEDS: NACL 0.9% 1000 ML 1,000 ML IV SCH ×2 (14:00→23:51)
--- NOTE | 2018-09-16 14:21 | Consultation ---
Addendum entered and electronically signed by SHAHNAZ GRIGSBY MD 09/16/18 15:34: LDL 150. Agree with atorvastatin. Moderate MR (eccentric jet) by Echo, normal LVEF. Awaiting Yesenia nuclear stress scan in AM. Original Note: History of Present Illness Consult date: 09/16/18 Requesting physician: GUERRERO SMART Consult reason: chest pain, hypotension History of present illness: The pt is a 58-year-old female with a past medical history of ESRD, currently on peritoneal dialysis (follows Dr. Mccullough), anemia, HTN. She is previously unknown to our practice and does not regularly see a wellness instructor. She presented with complaints of chest pain since Sunday evening. She states that she was laying down in her bed on Sunday evening when she noted the onset of her pain. The pain is an intermittent, sharp pain which is aggravated by deep inspiration. She denies any SOB, palpitations, n/v, diaphoresis, dizziness or syncope. Following arrival to ED, she was noted to be hypotensive and was initiated on levophed gtt. Echo done today showed EF 60-65%, RV mildly dilated, mod MR. Past History Past Medical History: dialysis, ESRD, hypertension, renal failure Past Surgical History: hysterectomy Social history: full code. denies: smoking, alcohol abuse, prescription drug abuse, IV drug use Family history: no significant family history Medications and Allergies Allergies Allergy/AdvReac Type Severity Reaction Status Date / Time chlorhexidine Allergy Itching Verified 06/20/16 08:45 hydralazine Allergy Unknown Verified 06/06/16 14:28 shellfish derived Allergy Swelling Verified 10/01/14 09:46 iodine AdvReac Swelling Verified 10/06/14 06:31 Home Medications Medication Instructions Recorded Confirmed Last Taken Type Ergocalciferol (Vitamin D2) 50,000 unit PO QWEEK 09/16/18 09/16/18 Unknown History [Drisdol] Hydrocortisone [Anucort-HC SUPPOS] 25 mg RC BID 09/16/18 09/16/18 Unknown History Ondansetron [Zofran TAB] 4 mg PO Q8HR PRN 09/16/18 09/16/18 Unknown History Zolpidem [Ambien] 10 mg PO QHS 09/16/18 09/16/18 Unknown History Active Meds: Active Medications Famotidine (Pepcid) 20 mg PO QDAY [facility] Heparin Sodium (Porcine) (Heparin) 5,000 unit SUB-Q Q12HR DIMITRI Norepinephrine (Levophed Drip 4 Mg/Ns 250 Ml) 4 mg in 250 mls @ 7.5 mls/hr IV TITR DIMITRI; Protocol Last Titration: 09/16/18 11:29 Dose: 4 mcg/min, 15 mls/hr Documented by: Sodium Chloride (Nacl 0.9% 1000 Ml) 2,000 mls @ 999 mls/hr IV DIRECT DIMITRI Cefepime HCl 0.5 gm/ Sodium (Chloride) 100 mls @ 200 mls/hr IV Q24H DIMITRI Vancomycin HCl 1,250 mg/ (Sodium Chloride) 275 mls @ 166.667 mls/hr IV ONCE ONE Stop: 09/16/18 14:38 Last Admin: 09/16/18 13:54 Dose: 166.667 mls/hr Documented by: Sodium Chloride (Nacl 0.9% 1000 Ml) 1,000 mls @ 75 mls/hr IV DIRECT DIMITRI Stop: 09/18/18 03:19 Last Admin: 09/16/18 14:00 Dose: 75 mls/hr Documented by: Morphine Sulfate (Morphine) 2 mg IV Q4H PRN PRN Reason: Pain, Moderate (4-6) Review of Systems Constitutional: no weight loss, no fever, no chills, no sweats Ears, nose, mouth and throat: no ear pain, no nose pain, no sinus pressure, no sinus pain Cardiovascular: chest pain, high blood pressure, no orthopnea, no palpitations, no rapid/irregular heart beat, no edema, no syncope, no lightheadedness, no shortness of breath, no dyspnea on exertion Respiratory: pain on inspiration, no cough, no shortness of breath, no dyspnea on exertion, no congestion, no wheezing Gastrointestinal: no abdominal pain, no nausea, no vomiting, no diarrhea, no constipation, no change in bowel habits Genitourinary Female: no pelvic pain, no flank pain, no dysuria, no urinary frequency, no urgency Musculoskeletal: no neck stiffness, no neck pain, no shooting arm pain, no arm numbness/tingling, no low back pain, no shooting leg pain Integumentary: no rash, no pruritis, no redness, no sores, no wounds Neurological: no head injury, no paralysis, no weakness, no parathesias, no numbness, no tingling, no seizures, no syncope Psychiatric: no anxiety Endocrine: no cold intolerance, no heat intolerance Hematologic/Lymphatic: no easy bruising, no easy bleeding Allergic/Immunologic: no urticaria, no wheezing Physical Examination Vital Signs Pulse Resp BP Pulse Ox 81 22 83/50 98 09/16/18 04:46 09/16/18 04:46 09/16/18 04:46 09/16/18 04:46 General appearance: no acute distress HEENT: Positive: PERRL, Normocephaly, Mucus Membranes Moist Neck: Positive: neck supple, trachea midline Cardiac: Positive: Reg Rate and Rhythm, S1/S2, Systolic Murmur Lungs: Positive: clear to auscultation Neuro: Positive: Grossly Intact Abdomen: Positive: Soft. Negative: Tender Skin: Negative: Rash, Wound Musculoskeletal: No Pain Extremities: Absent: edema Results 09/16/18 03:29 09/16/18 03:29 Coagulation 09/16/18 Range/Units 06:44 PT 12.6 (12.2-14.9) Sec. INR 0.90 (0.87-1.13) Lipids 09/16/18 Range/Units 03:29 Triglycerides 68 (2-149) mg/dL Cholesterol 226 H (50-199) mg/dL HDL Cholesterol 89 H (40-59) mg/dL Cholesterol/HDL Ratio 2.53 % CBC 09/16/18 Range/Units 03:29 WBC 8.9 (4.5-11.0) K/mm3 RBC 3.20 L (3.65-5.03) M/mm3 Hgb 9.2 L (10.1-14.3) gm/dl Hct 28.3 L (30.3-42.9) % Plt Count 283 (140-440) K/mm3 Lymph # 0.8 L (1.2-5.4) K/mm3 [place] # 1.0 H (0.0-0.8) K/mm3 Eos # 0.1 (0.0-0.4) K/mm3 Baso # 0.1 (0.0-0.1) K/mm3 Comprehensive Metabolic Panel 09/16/18 Range/Units 03:29 Sodium 137 (137-145) mmol/L Potassium 3.3 L (3.6-5.0) mmol/L Chloride 95.0 L (98-107) mmol/L Carbon Dioxide 20 L (22-30) mmol/L BUN 81 H (7-17) mg/dL Creatinine 16.4 H (0.7-1.2) mg/dL Glucose 127 H (65-100) mg/dL Calcium 7.5 L (8.4-10.2) mg/dL - Imaging and Cardiology Echo: report reviewed (EF 60-65%, RV mildly dilated, mod MR. ) EKG: report reviewed, image reviewed EKG interpretations - Telemetry EKG Rhythm: Sinus Rhythm - EKG Sinus rhythms and dysrhythmias: sinus rhythm Assessment and Plan DDimer elevated - chest CTA negative for PE. No current indication for heparinization from cardiac perspective. Wean vasopressors as tolerated. Will plan for lexiscan MPI stress test in AM pending pt is weaned off vasopressors overnight. NPO after MN. Initiate lipitor. The patient has been seen in conjunction with Dr. Salguero who agrees with the assessment and plan of care. - Patient Problems (1) Chest pain Current Visit: Yes Status: Acute (2) Hypotension Current Visit: Yes Status: Acute (3) ESRD (end stage renal disease) Current Visit: Yes Status: Acute (4) Anemia Current Visit: Yes Status: Chronic Qualifiers: Other causes of anemia: chronic disease, kidney (5) Hyperlipidemia Current Visit: Yes Status: Chronic (6) Elevated troponin Current Visit: Yes Status: Acute
[2018-09-16] MEDS ORDERED: MORPHINE ONE (14:58)
[2018-09-16] MEDS: MORPHINE IV PRN ×2 (14:59→23:38)
--- NOTE | 2018-09-16 16:17 | Consultation ---
History of Present Illness - Reason for Consult Consult date: 09/16/18 end stage renal disease Requesting physician: DAVID MORA - History of Present Illness This is a 58 yo AAF with past medical history of hypertension, IBS, GERD, ESRD currently on PD, anemia of ESRD and secondary hyperparathyroidism, who is well known to me from the PD clinic, who presents to [facility] ER with mid sternal chest pain, radiating to the back, with intensity 10/10. CP started yesterday around noon and was associated with dizziness, shortness of breath and dyspnea on exertion. last PD was performed the night prior to yesterday. In the ER patient was found to be hypotensive with BP as low as 60/40s mmHg and was given IV fluid bolus and placed on norepinephrine after central line placement. labs showed elevated D-dimer > 300 along with elevated troponin at 0.1. CT w/ PE protocol was performed which did not reveal evidence of PE. Echo cardiogram showed normal LVSF with EF 60-65%, no evidence of pericardial effusion was seen. Labs showed elevated BUN/Cr at 81/16mg/dl along with mild hypokalemia. Renal consult is requested for management of ESRD/PD. Past History Past Medical History: dialysis, ESRD, hypertension, renal failure Past Surgical History: hysterectomy Social history: full code. denies: smoking, alcohol abuse, prescription drug abuse, IV drug use Family history: no significant family history Medications and Allergies Allergies Allergy/AdvReac Type Severity Reaction Status Date / Time chlorhexidine Allergy Itching Verified 06/20/16 08:45 hydralazine Allergy Unknown Verified 06/06/16 14:28 shellfish derived Allergy Swelling Verified 10/01/14 09:46 iodine AdvReac Swelling Verified 10/06/14 06:31 Home Medications Medication Instructions Recorded Confirmed Last Taken Type Ergocalciferol (Vitamin D2) 50,000 unit PO QWEEK 09/16/18 09/16/18 Unknown History [Drisdol] Hydrocortisone [Anucort-HC SUPPOS] 25 mg RC BID 09/16/18 09/16/18 Unknown History Ondansetron [Zofran TAB] 4 mg PO Q8HR PRN 09/16/18 09/16/18 Unknown History Zolpidem [Ambien] 10 mg PO QHS 09/16/18 09/16/18 Unknown History Active Meds: Active Medications Atorvastatin Calcium (Lipitor) 20 mg PO QHS DIMITRI Famotidine (Pepcid) 20 mg PO QDAY DIMITRI Heparin Sodium (Porcine) (Heparin) 5,000 unit SUB-Q Q12HR DIMITRI Norepinephrine (Levophed Drip 4 Mg/Ns 250 Ml) 4 mg in 250 mls @ 7.5 mls/hr IV TITR DIMITRI; Protocol Last Titration: 09/16/18 15:15 Dose: 2 mcg/min, 7.5 mls/hr Documented by: Sodium Chloride (Nacl 0.9% 1000 Ml) 2,000 mls @ 999 mls/hr IV DIRECT DIMITRI Last Admin: 09/16/18 14:00 Dose: 999 mls/hr Documented by: Cefepime HCl 0.5 gm/ Sodium (Chloride) 100 mls @ 200 mls/hr IV Q24H DIMITRI Sodium Chloride (Nacl 0.9% 1000 Ml) 1,000 mls @ 75 mls/hr IV DIRECT DIMITRI Stop: 09/18/18 03:19 Morphine Sulfate (Morphine) 2 mg IV Q4H PRN PRN Reason: Pain, Moderate (4-6) Last Admin: 09/16/18 14:59 Dose: 2 mg Documented by: Review of Systems All systems: negative Constitutional: fatigue, weakness, malaise Cardiovascular: chest pain, shortness of breath, dyspnea on exertion Exam - Vital Signs Vital signs: Vital Signs Pulse Resp BP Pulse Ox 81 22 83/50 98 09/16/18 04:46 09/16/18 04:46 09/16/18 04:46 09/16/18 04:46 - General Appearance General appearance: well-developed, well-nourished, appears stated age EENT: ATNC, PERRL, mucous membranes moist Neck: Present: neck supple Respiratory: Clear to Ascultation Heart: regular, S1S2 Gastrointestinal: Present: normoactive bowel sounds Integumentary: no rash, other (no edema ) Neurologic: no focal deficit, alert and oriented x3, strength 5/5, CN 3-12 intact Psychiatric: mood/affect appropriate, cooperative Results - Lab Results 09/16/18 03:29 09/16/18 03:29 Most recent lab results Calcium 7.5 mg/dL (8.4-10.2) L 09/16/18 03:29 Laboratory Tests 09/16/18 09/16/18 09/16/18 03:29 06:03 06:44 PT 12.6 INR 0.90 D-Dimer 301.01 H Lactic Acid Calcium 7.5 L Troponin T 0.100 H 0.082 H C-Reactive Protein NT-Pro-B Natriuret Pep Triglycerides 68 Cholesterol 226 H HDL Cholesterol 89 H 09/16/18 09/16/18 09/16/18 06:44 09:31 14:29 PT INR D-Dimer Lactic Acid 1.50 Calcium Troponin T 0.065 H D C-Reactive Protein NT-Pro-B Natriuret Pep 4189 H Triglycerides Cholesterol HDL Cholesterol 09/16/18 14:29 PT INR D-Dimer Lactic Acid Calcium Troponin T C-Reactive Protein 1.70 H NT-Pro-B Natriuret Pep Triglycerides Cholesterol HDL Cholesterol Assessment and Plan - Patient Problems (1) Shock Current Visit: Yes Status: Acute Plan to address problem: hypovolemic vs septic shock. no evidence of PE on CT angio, ECHO showed normal LVSF without evidence of pericardial effusion. pt s/p IV NS bolus and started on levophed. cont vasopressor support to keep MAP > 65mmHg. BCx/UCx peding, empiric ABXs started. Will hold off PD/HD for now until pt is more hemodynamically stable. cont to hold home BP meds (2) Chest pain Current Visit: Yes Status: Acute Plan to address problem: follow cardiology recommendations. Yesenia scan tentatively in AM (3) ESRD (end stage renal disease) Current Visit: Yes Status: Acute Plan to address problem: will resume CAPD once BP is stabilized. (4) Anemia in end-stage renal disease Current Visit: No Status: Chronic Plan to address problem: cont EPO [id number] q week
[2018-09-16] MEDS ORDERED: DILAUDID ONE (20:21)
[2018-09-16] MEDS: DILAUDID IV PRN (20:24)
--- NOTE | 2018-09-16 20:49 | Consultation ---
PULMONARY CRITICAL CARE CONSULTATION NOTE CONSULTING PHYSICIAN: Dr. Johnson. REASON FOR CONSULTATION: Hypotension and shock. CHIEF COMPLAINT AND HISTORY OF PRESENT ILLNESS: As follows, the patient is a 58-year-old -[place] female with past medical history significant amongst other things for a diagnosis of end-stage renal disease, on peritoneal dialysis, but also history of pulmonary emboli in the past, came into the Emergency Room complaining of chest pain, it was central, it was deep, worse in the lower sternal region anteriorly. She also complained of some back pain, it was worsened with deep inspiration and some positional change. She denies any vomiting. She denies any hematemesis. She denies any hemoptysis. She denies any real cough or expectoration. She also denies any chest wall trauma. She denies any new onset leg pain or swelling either unilaterally or bilaterally or any suggestion of deep venous thrombosis. In the ER, she was found to be hypotensive, systolic blood pressures in the 60s-70s. She received IV fluids, but still remained hypotensive. The case was discussed with Cardiology, but we were asked to assist with management. She has already received 2 liters of IV normal saline and still remained hypotensive. When I stopped by to see her, she was resting peacefully in bed, feeling a little bit better. Denied any fevers or chills. She still had intermittent pleuritic type chest pain. With regards to tobacco use/abuse history, she has about a 10+ pack year remote tobacco smoking history. This really is as much of the history of presentation as I have. PAST MEDICAL HISTORY: Significant for hypertension; end-stage renal disease, on dialysis; history of pulmonary emboli. This was 20 years ago according to her, history of gastroesophageal reflux disease, history of chronic headaches/migraines. She also has a history of bilateral subdural hematomas and pancreatitis in February of last year. History of obstructive sleep apnea. PAST SURGICAL HISTORY: She has had AV graft to the left arm. She has a peritoneal dialysis catheter and she has a history of gastric bypass. She has had a hysterectomy in the past and she has had breast augmentation surgery as well as a cholecystectomy. MEDICATIONS: She was on at the time I stopped by to see were reviewed, pertinent medications include the following: Cefepime 0.5 grams IV daily, Levophed was going at 4 mcg per minute, vancomycin. She received 1.25 grams and had just completed another bolus of normal saline. ALLERGIES: CHLORHEXIDINE, HYDRALAZINE, IODINE. Nature of this allergy is unknown. DIET: Petite lady, denies acute weight loss or gain in the preceding few weeks to months. FAMILY AND SOCIAL HISTORY: Lives in the community. She has a remote 10+ pack year tobacco smoking history. Denies current alcohol, tobacco, or illicit drug use or abuse. Family history, otherwise noncontributory. REVIEW OF SYSTEMS: No loss of consciousness. No new onset seizures. No new onset focal weakness. Denies gross hematochezia or melena. Denies gross hematuria or dysuria. No hematemesis. She denies any palpitations. She has the chest pain. She denies heat or cold intolerance. Denies polydipsia or polyuria. Denies any new rashes on her body. Denies any bothersome anxiety. Complete 13-system review of systems obtained. Pertinent positives and/or negatives as in body of history above, otherwise noncontributory. PHYSICAL EXAMINATION: VITAL SIGNS: On examination at presentation. No temperature was recorded, pulse 81, respiratory rate 22, blood pressure was 83/50, O2 sats were 98%, inspired oxygen concentration at that time was not recorded. When I stopped by to see her O2 sats were 98% on room air. GENERAL: She is well-built -[place] female, normocephalic, atraumatic, talking to me in full sentences. She is with mildly increased respiratory effort at rest. HEAD, EYES, EARS, NOSE AND THROAT: She is anicteric. No conjunctival erythema. Oropharynx is moist with a Mallampati #4. HEAD, EYES, EARS, NOSE AND THROAT: No gross jugular venous distention, no thyromegaly. Grossly, no palpable lymph nodes in the supraclavicular or submandibular lymph node chains. I believe she has a left EJ IV peripheral access. LUNGS: Auscultation of both lung edmondson, diminished basilar air entry, bibasilar inspiratory rales, slightly prolonged expiratory phase. No wheezing. HEART: Heart sounds 1 and 2 are heard. They were regular in rate and rhythm at the time of my evaluation, without rubs or murmurs. ABDOMEN: Soft, full, bowel sounds are positive, nontender, no palpable hepatosplenomegaly. There is a PD catheter in place. No pus, no obvious erythema. EXTREMITIES: Without overt digital clubbing, cyanosis, no pedal edema. Full range of motion, 2+ pedal pulses noted. NEUROLOGIC: Pupils are equal, round, about 4 mm, reactive to light. Extraocular muscle movements are intact. Her tongue is midline. There is no facial droop. No aphasia. She moves all 4 extremities spontaneously. Power is 5/5 in all extremities. Mood is normal. Her affect is appropriate. SKIN: Warm, dry. No decubitus ulcers. No rash, no cellulitis. LABORATORY DATA: From my review are as follows: Admission white cell count 8900, hemoglobin 9.2, hematocrit 28.3 and platelet count 283. No manual differential. INR was within normal limits. D-dimer was slightly elevated at 301. Serum sodium was 137, potassium 3.3, chloride 95, bicarbonate 20, BUN 81, creatinine 6.4, glucose was 127. Troponin was up at 0.10. LDL cholesterol was elevated at 150. No microbiology studies. I have reviewed the chest x-ray. I have also reviewed the radiologist's interpretation. I do agree it is a normal chest x-ray. She also had a CT angiogram of her chest done today. I have pulled up the CT angiogram as well as reviewed the radiologist's interpretation, really very good contrast face timing. I do not see any gross filling defects consistent with known pulmonary emboli. There is significant motion artifact, but not enough to obscure ____ of the large vessels. No overt interstitial edema at worst, mild ground glass opacification. No gross pneumothorax, no gross bony fracture. ASSESSMENT: She also got a 2D echocardiogram done as a transthoracic echocardiogram, normal ejection fraction, no mention of diastolic dysfunction. No mention of elevated right ventricular systolic pressures. ASSESSMENT AND PLAN: 1. Severe sepsis with shock. 2. End-stage renal disease, on peritoneal dialysis. 3. History of hypertension. 4. History of venous thromboembolic phenomenon. 5. Gastroesophageal reflux disease. 6. Chest pain, non-ST elevation myocardial infarction. 7. History of migraine headaches. 8. History of pancreatitis. 9. Anemia that is normocytic, likely of chronic disease. 10. Elevated D-dimer. 11. Mild hypokalemia. 12. Mild metabolic acidosis. 13. Elevated serum troponins. PLAN: I do agree with empiric broad spectrum antibiotic therapy. I do believe 2 sets of blood cultures have been ordered and if those have not been I will be ordering those. We will continue Levophed drip and wean to maintain in mean arterial pressure 65 or greater mmHg. I do feel she is relatively intravascular volume depleted. I will put her on normal saline at 100 mL per hour for another 2 liters while weaning her off the Levophed drip. She has had a CT angiogram that is negative. We will put her on DVT prophylaxis doses of anticoagulation. I will defer to the cooler room worker in terms of dialysis. I will defer to the hook and eye machine operator in terms of the acute coronary syndrome workup. She will also be placed on GI prophylaxis. Flu and pneumonia vaccination will be addressed per protocol. Thank you very much for the consult. We will follow along and make further recommendations as picture progresses/becomes clearer. The hypokalemia will be corrected with ____. I will defer that to the cooler room worker. She is critically ill on life-sustaining interventions including the Levophed drip at risk of deterioration including from a cardiopulmonary renal system decompensation. At this time, I spent about 35-40 minutes of critical care time without overlap excluding any procedural time that may be necessary. I should mention a CRP level will also be ordered to better evaluate the true infectious potential of this sepsis presentation and lactic acid levels will be ordered. JOB# [id number] BROCK/JULEE BRENNER
[2018-09-16] MEDS: HEPARIN SUB-Q SCH (23:40)
[2018-09-16] MEDS: MAXIPIME 0.5 GM in NACL 0.9% 100 ML IV SCH (23:52)
[2018-09-17] MEDS ORDERED: AMBIEN PO ONE (01:00)
[2018-09-17] MEDS: LEVOPHED DRIP 4 MG/NS 250 ML 4 MG/250 ML BAG IV SCH (01:11)
[2018-09-17] MEDS: DILAUDID IV PRN ×2 (04:25→10:14)
[2018-09-17 06:00] LABS: Hematocrit 31.8 % (30.3-42.9); Hemoglobin 10.2 gm/dl (10.1-14.3); Mean Corpuscular HGB Conc 32 % (30-34); Mean Corpuscular Volume 89 fl (79-97); Platelet Count 329 K/mm3 (140-440); Red Blood Count 3.56 M/mm3 (3.65-5.03); Red Cell Distribution Width 15.1 % (13.2-15.2)
[2018-09-17 06:10] LABS: Basophils % (Auto) 0.3 % (0.0-1.8); Eosinophils % (Auto) 0.2 % (0.0-4.3); Lymphocytes # (Auto) 1.5 K/mm3 (1.2-5.4); Lymphocytes % (Auto) 12.2 % (13.4-35.0); Monocytes # (Auto) 1.6 K/mm3 (0.0-0.8); Monocytes % (Auto) 12.6 % (0.0-7.3)
--- NOTE | 2018-09-17 08:24 | Progress Note ---
Assessment and Plan Severe sepsis with shock. End-stage renal disease, on peritoneal dialysis. History of hypertension. History of venous thromboembolic phenomenon. Gastroesophageal reflux disease. Chest pain NSTEMI History of migraine headaches. History of pancreatitis. Anemia that is normocytic, likely of chronic disease. Elevated D-dimer. Mild hypokalemia. Mild metabolic acidosis. Elevated serum troponins - vasopressor support to keep MAP>65 -Volume resucitate as tolerated by pulmonary status -Empiric antibiotics, follow cultures and then de-escalate based on microbiology/SARAH - supplemental oxygen as needed to keep O2 saturation > 90% - Peritoneal dialysis for toxin and volume management -Send PD fluid for cultures r/o peritonitis - VTE prophylaxis -Chronic home medications -Cardiology notes reviewed -Follow up Echo formal report - PT/OT and increase ambulation - continue other care per attending / other consultants The high probability of a clinically significant, sudden or life threatening deterioration of the [CV, renal] system(s) required my full and direct attention, intervention and personal management. The aggregate critical care time was [31] minutes. This time is in addition to time spent performing reported procedures but includes the following: [x] Data Review and interpretation [x] Patient assessment and monitoring of vital signs [x] Documentation [x] Medication orders and management Subjective Date of service: 09/17/18 Interval history: Patient is seen today for: Severe sepsis with shock; End-stage renal disease, on peritoneal dialysis; H/O hypertension; History of venous thromboembolic phenomenon; Gastroesophageal reflux disease; Chest pain; NSTEMI; History of migraine headaches. Seen and examined at bedside; 24hour events reviewed; nursing and respiratory care staff consulted; no adverse overnight events reported to me; sitting peacefully in chair; about to begin dialysis (PD); feels better overall; denies acute chest pains or palpitations but + some CONTEH; No N/V/F/C Objective - Exam Narrative Exam: General appearance: no acute distress HEENT: Positive: PERRL, Normocephaly, Mucus Membranes Moist Neck: Positive: neck supple, trachea midline Cardiac: Positive: Reg Rate and Rhythm, S1/S2, Systolic Murmur Lungs: Positive: clear to auscultation Neuro: Positive: Grossly Intact Abdomen: Positive: Soft. Negative: Tender Skin: Negative: Rash, Wound Musculoskeletal: No Pain Extremities: Absent: edema Vital Signs - 12hr 09/16/18 09/16/18 09/16/18 20:30 20:45 21:00 Temperature Pulse Rate 89 85 85 Pulse Rate [ From Monitor] Pulse Rate [ Left Dorsalis Pedis] Pulse Rate [ Left Radial] Pulse Rate [ Right Dorsalis Pedis] Pulse Rate [ Right Radial] Respiratory 15 20 17 Rate Blood Pressure 112/70 110/66 109/60 Blood Pressure [Right] O2 Sat by Pulse 99 98 98 Oximetry 09/16/18 09/16/18 09/16/18 21:15 21:30 21:45 Temperature Pulse Rate 84 86 84 Pulse Rate [ From Monitor] Pulse Rate [ Left Dorsalis Pedis] Pulse Rate [ Left Radial] Pulse Rate [ Right Dorsalis Pedis] Pulse Rate [ Right Radial] Respiratory 16 17 17 Rate Blood Pressure 114/51 92/65 101/62 Blood Pressure [Right] O2 Sat by Pulse 97 97 97 Oximetry 09/16/18 09/16/18 09/16/18 22:00 22:15 22:30 Temperature Pulse Rate 87 84 77 Pulse Rate [ From Monitor] Pulse Rate [ Left Dorsalis Pedis] Pulse Rate [ Left Radial] Pulse Rate [ Right Dorsalis Pedis] Pulse Rate [ Right Radial] Respiratory 14 14 18 Rate Blood Pressure 102/53 110/57 106/60 Blood Pressure [Right] O2 Sat by Pulse 97 97 97 Oximetry 09/16/18 09/16/18 09/16/18 22:45 22:48 23:33 Temperature 98.1 F Pulse Rate 77 82 77 Pulse Rate [ From Monitor] Pulse Rate [ Left Dorsalis Pedis] Pulse Rate [ Left Radial] Pulse Rate [ Right Dorsalis Pedis] Pulse Rate [ Right Radial] Respiratory 21 16 21 Rate Blood Pressure 102/66 102/66 Blood Pressure 81/40 [Right] O2 Sat by Pulse 97 98 97 Oximetry 09/16/18 09/16/18 09/16/18 23:34 23:38 23:45 Temperature Pulse Rate 83 77 Pulse Rate [ From Monitor] Pulse Rate [ Left Dorsalis Pedis] Pulse Rate [ Left Radial] Pulse Rate [ Right Dorsalis Pedis] Pulse Rate [ Right Radial] Respiratory 19 17 14 Rate Blood Pressure 90/53 Blood Pressure [Right] O2 Sat by Pulse 97 97 Oximetry 09/17/18 09/17/18 09/17/18 00:00 00:15 00:30 Temperature 98.9 F Pulse Rate 76 83 79 Pulse Rate [ 78 From Monitor] Pulse Rate [ 78 Left Dorsalis Pedis] Pulse Rate [ 78 Left Radial] Pulse Rate [ 78 Right Dorsalis Pedis] Pulse Rate [ 78 Right Radial] Respiratory 15 15 17 Rate Blood Pressure 90/54 89/48 80/41 Blood Pressure [Right] O2 Sat by Pulse 97 96 96 Oximetry 09/17/18 09/17/18 09/17/18 00:45 01:00 01:15 Temperature Pulse Rate 77 79 76 Pulse Rate [ From Monitor] Pulse Rate [ Left Dorsalis Pedis] Pulse Rate [ Left Radial] Pulse Rate [ Right Dorsalis Pedis] Pulse Rate [ Right Radial] Respiratory 15 12 16 Rate Blood Pressure 77/43 87/54 89/53 Blood Pressure [Right] O2 Sat by Pulse 97 97 98 Oximetry 09/17/18 09/17/18 09/17/18 01:30 01:45 02:00 Temperature Pulse Rate 83 79 80 Pulse Rate [ From Monitor] Pulse Rate [ Left Dorsalis Pedis] Pulse Rate [ Left Radial] Pulse Rate [ Right Dorsalis Pedis] Pulse Rate [ Right Radial] Respiratory 13 17 14 Rate Blood Pressure 99/61 90/55 99/55 Blood Pressure [Right] O2 Sat by Pulse 96 94 97 Oximetry 09/17/18 09/17/18 09/17/18 02:15 02:30 02:45 Temperature Pulse Rate 75 76 74 Pulse Rate [ From Monitor] Pulse Rate [ Left Dorsalis Pedis] Pulse Rate [ Left Radial] Pulse Rate [ Right Dorsalis Pedis] Pulse Rate [ Right Radial] Respiratory 12 12 16 Rate Blood Pressure 94/53 81/53 88/55 Blood Pressure [Right] O2 Sat by Pulse 97 96 95 Oximetry 09/17/18 09/17/18 09/17/18 03:00 03:15 03:30 Temperature Pulse Rate 78 74 74 Pulse Rate [ From Monitor] Pulse Rate [ Left Dorsalis Pedis] Pulse Rate [ Left Radial] Pulse Rate [ Right Dorsalis Pedis] Pulse Rate [ Right Radial] Respiratory 14 14 14 Rate Blood Pressure 81/54 81/49 84/59 Blood Pressure [Right] O2 Sat by Pulse 95 95 94 Oximetry 09/17/18 09/17/18 09/17/18 03:45 04:00 04:15 Temperature 98.8 F Pulse Rate 78 69 73 Pulse Rate [ 80 From Monitor] Pulse Rate [ Left Dorsalis Pedis] Pulse Rate [ Left Radial] Pulse Rate [ Right Dorsalis Pedis] Pulse Rate [ Right Radial] Respiratory 16 17 16 Rate Blood Pressure 86/55 96/60 104/62 Blood Pressure [Right] O2 Sat by Pulse 96 97 99 Oximetry 09/17/18 09/17/18 09/17/18 04:25 04:30 04:45 Temperature Pulse Rate 77 82 Pulse Rate [ From Monitor] Pulse Rate [ Left Dorsalis Pedis] Pulse Rate [ Left Radial] Pulse Rate [ Right Dorsalis Pedis] Pulse Rate [ Right Radial] Respiratory 14 11 L 13 Rate Blood Pressure 100/65 88/61 Blood Pressure [Right] O2 Sat by Pulse 97 96 Oximetry 09/17/18 09/17/18 09/17/18 05:00 05:16 05:30 Temperature Pulse Rate 81 80 76 Pulse Rate [ From Monitor] Pulse Rate [ Left Dorsalis Pedis] Pulse Rate [ Left Radial] Pulse Rate [ Right Dorsalis Pedis] Pulse Rate [ Right Radial] Respiratory 20 16 Rate Blood Pressure 88/61 97/56 Blood Pressure [Right] O2 Sat by Pulse 99 Oximetry 09/17/18 09/17/18 09/17/18 05:45 06:00 06:15 Temperature Pulse Rate 74 76 72 Pulse Rate [ From Monitor] Pulse Rate [ Left Dorsalis Pedis] Pulse Rate [ Left Radial] Pulse Rate [ Right Dorsalis Pedis] Pulse Rate [ Right Radial] Respiratory 13 13 11 L Rate Blood Pressure 87/51 85/55 80/50 Blood Pressure [Right] O2 Sat by Pulse 97 98 98 Oximetry 09/17/18 09/17/18 09/17/18 06:30 06:45 07:00 Temperature Pulse Rate 83 73 68 Pulse Rate [ From Monitor] Pulse Rate [ Left Dorsalis Pedis] Pulse Rate [ Left Radial] Pulse Rate [ Right Dorsalis Pedis] Pulse Rate [ Right Radial] Respiratory 18 14 15 Rate Blood Pressure 78/51 78/44 89/57 Blood Pressure [Right] O2 Sat by Pulse 99 98 99 Oximetry 09/17/18 08:00 Temperature 98.1 F Pulse Rate Pulse Rate [ From Monitor] Pulse Rate [ Left Dorsalis Pedis] Pulse Rate [ Left Radial] Pulse Rate [ Right Dorsalis Pedis] Pulse Rate [ Right Radial] Respiratory Rate Blood Pressure Blood Pressure [Right] O2 Sat by Pulse Oximetry CBC and BMP: 09/20/18 05:47 09/20/18 05:47 ABG, PT/INR, D-dimer: PT/INR, D-dimer PT 12.6 Sec. (12.2-14.9) 09/16/18 06:44 INR 0.90 (0.87-1.13) 09/16/18 06:44 D-Dimer 301.01 ng/mlDDU (0-234) H 09/16/18 06:44 Abnormal lab findings: Abnormal Labs 09/16/18 09/16/18 09/16/18 03:29 03:29 06:03 WBC RBC 3.20 L Hgb 9.2 L Hct 28.3 L Lymph % (Auto) 8.8 L Custer % (Auto) 10.8 H Lymph # 0.8 L Custer # 1.0 H Seg Neutrophils % 78.3 H Seg Neutrophils # D-Dimer Sodium Potassium 3.3 L Chloride 95.0 L Carbon Dioxide 20 L BUN 81 H Creatinine 16.4 H Glucose 127 H Calcium 7.5 L Troponin T 0.100 H 0.082 H C-Reactive Protein NT-Pro-B Natriuret Pep Cholesterol 226 H LDL Cholesterol Direct 150 H HDL Cholesterol 89 H 09/16/18 09/16/18 09/16/18 06:44 06:44 09:31 WBC RBC Hgb Hct Lymph % (Auto) Custer % (Auto) Lymph # Custer # Seg Neutrophils % Seg Neutrophils # D-Dimer 301.01 H Sodium Potassium Chloride Carbon Dioxide BUN Creatinine Glucose Calcium Troponin T 0.065 H D C-Reactive Protein NT-Pro-B Natriuret Pep 4189 H Cholesterol LDL Cholesterol Direct HDL Cholesterol 09/16/18 09/17/18 09/17/18 14:29 04:10 04:10 WBC 12.4 H RBC 3.56 L Hgb Hct Lymph % (Auto) 12.2 L Custer % (Auto) 12.6 H Lymph # Custer # 1.6 H Seg Neutrophils % 74.7 H Seg Neutrophils # 9.2 H D-Dimer Sodium 135 L Potassium Chloride Carbon Dioxide 15 L BUN 85 H Creatinine 17.1 H Glucose 107 H Calcium 7.0 L Troponin T C-Reactive Protein 1.70 H NT-Pro-B Natriuret Pep Cholesterol LDL Cholesterol Direct HDL Cholesterol Chest x-ray: image reviewed
--- NOTE | 2018-09-17 09:29 | Progress Note ---
Assessment and Plan Wean vasopressors as tolerated. Will obtain resting stress images today and plan for completion of lexiscan MPI stress test once weaned off levophed gtt. NPO after MN for tentative completion of stress test in AM. The patient has been seen in conjunction with Dr. Salguero who agrees with the assessment and plan of care. - Patient Problems (1) Chest pain Current Visit: Yes Status: Acute (2) Hypotension Current Visit: Yes Status: Acute (3) ESRD (end stage renal disease) Current Visit: Yes Status: Acute (4) Anemia Current Visit: Yes Status: Chronic Qualifiers: Other causes of anemia: chronic disease, kidney (5) Hyperlipidemia Current Visit: Yes Status: Chronic (6) Elevated troponin Current Visit: Yes Status: Acute Subjective Date of service: 09/17/18 Principal diagnosis: cp; hypotension Interval history: pt with no current cardiac complaints, remains on levophed gtt. Objective Last Vital Signs Temp 98.1 F 09/17/18 08:00 Pulse 76 09/17/18 09:15 Resp 14 09/17/18 09:15 BP 82/46 09/17/18 09:15 Pulse Ox 91 09/17/18 09:15 - Physical Examination General: No Apparent Distress HEENT: Positive: PERRL, Normocephaly, Mucus Membranes Moist Neck: Positive: neck supple Cardiac: Positive: Reg Rate and Rhythm, S1/S2 Lungs: Positive: clear to auscultation Neuro: Positive: Grossly Intact Abdomen: Positive: Soft. Negative: Tender Skin: Negative: Rash, Wound Musculoskeletal: No Pain Extremities: Absent: edema - Labs and Meds CBC 09/17/18 Range/Units 04:10 WBC 12.4 H (4.5-11.0) K/mm3 RBC 3.56 L (3.65-5.03) M/mm3 Hgb 10.2 (10.1-14.3) gm/dl Hct 31.8 (30.3-42.9) % Plt Count 329 (140-440) K/mm3 Lymph # 1.5 (1.2-5.4) K/mm3 Schley # 1.6 H (0.0-0.8) K/mm3 Eos # 0.0 (0.0-0.4) K/mm3 Baso # 0.0 (0.0-0.1) K/mm3 Comprehensive Metabolic Panel 09/17/18 Range/Units 04:10 Sodium 135 L (137-145) mmol/L Potassium 4.5 D (3.6-5.0) mmol/L Chloride 99.9 (98-107) mmol/L Carbon Dioxide 15 L (22-30) mmol/L BUN 85 H (7-17) mg/dL Creatinine 17.1 H (0.7-1.2) mg/dL Glucose 107 H (65-100) mg/dL Calcium 7.0 L (8.4-10.2) mg/dL - Imaging and Cardiology EKG: report reviewed, image reviewed Echo: report reviewed (EF 60-65%, RV mildly dilated, mod MR. ) - EKG Sinus rhythms and dysrhythmias: sinus rhythm
[2018-09-17] MEDS: HEPARIN SUB-Q SCH ×2 (09:46→21:41)
[2018-09-17] MEDS: PEPCID PO SCH (09:46)
[2018-09-17] MEDS: SODIUM BICARBONATE PO SCH ×2 (09:47→21:54)
--- NOTE | 2018-09-17 10:01 | Progress Note ---
Assessment and Plan - Patient Problems (1) Shock Current Visit: Yes Status: Acute Plan to address problem: hypovolemic vs septic shock. no evidence of PE on CT angio, ECHO showed normal LVSF without evidence of pericardial effusion. cont IV NS at 75ml/hr along with vasopressor support with levophed to keep MAP > 65mmHg. BCx/UCx peding, empiric ABXs started. (2) Chest pain Current Visit: Yes Status: Acute Plan to address problem: follow cardiology recommendations. Yesenia scan this AM (3) ESRD (end stage renal disease) Current Visit: Yes Status: Acute Plan to address problem: resume CAPD given worsening azotemia, metabolic acidosis. started CAPD w/ dinea l 1.5% x 4 cycles/day. (4) Metabolic acidosis Current Visit: Yes Status: Acute Plan to address problem: start na bicarb 1300mg bid; resume PD (5) Anemia in end-stage renal disease Current Visit: No Status: Chronic Plan to address problem: cont EPO [id number] q week Subjective Date of service: 09/17/18 Principal diagnosis: cp; hypotension Interval history: Patient remains hypotensive, requiring vasopressor support with levophed at 4mcg/min Objective - Vital Signs Vital signs: Vital Signs - 12hr 09/16/18 09/16/18 09/16/18 22:00 22:15 22:30 Temperature Pulse Rate 87 84 77 Pulse Rate [ From Monitor] Pulse Rate [ Left Dorsalis Pedis] Pulse Rate [ Left Radial] Pulse Rate [ Right Dorsalis Pedis] Pulse Rate [ Right Radial] Respiratory 14 14 18 Rate Blood Pressure 102/53 110/57 106/60 Blood Pressure [Right] O2 Sat by Pulse 97 97 97 Oximetry 09/16/18 09/16/18 09/16/18 22:45 22:48 23:33 Temperature 98.1 F Pulse Rate 77 82 77 Pulse Rate [ From Monitor] Pulse Rate [ Left Dorsalis Pedis] Pulse Rate [ Left Radial] Pulse Rate [ Right Dorsalis Pedis] Pulse Rate [ Right Radial] Respiratory 21 16 21 Rate Blood Pressure 102/66 102/66 Blood Pressure 81/40 [Right] O2 Sat by Pulse 97 98 97 Oximetry 09/16/18 09/16/18 09/16/18 23:34 23:38 23:45 Temperature Pulse Rate 83 77 Pulse Rate [ From Monitor] Pulse Rate [ Left Dorsalis Pedis] Pulse Rate [ Left Radial] Pulse Rate [ Right Dorsalis Pedis] Pulse Rate [ Right Radial] Respiratory 19 17 14 Rate Blood Pressure 90/53 Blood Pressure [Right] O2 Sat by Pulse 97 97 Oximetry 09/17/18 09/17/18 09/17/18 00:00 00:15 00:30 Temperature 98.9 F Pulse Rate 76 83 79 Pulse Rate [ 78 From Monitor] Pulse Rate [ 78 Left Dorsalis Pedis] Pulse Rate [ 78 Left Radial] Pulse Rate [ 78 Right Dorsalis Pedis] Pulse Rate [ 78 Right Radial] Respiratory 15 15 17 Rate Blood Pressure 90/54 89/48 80/41 Blood Pressure [Right] O2 Sat by Pulse 97 96 96 Oximetry 09/17/18 09/17/18 09/17/18 00:45 01:00 01:15 Temperature Pulse Rate 77 79 76 Pulse Rate [ From Monitor] Pulse Rate [ Left Dorsalis Pedis] Pulse Rate [ Left Radial] Pulse Rate [ Right Dorsalis Pedis] Pulse Rate [ Right Radial] Respiratory 15 12 16 Rate Blood Pressure 77/43 87/54 89/53 Blood Pressure [Right] O2 Sat by Pulse 97 97 98 Oximetry 09/17/18 09/17/18 09/17/18 01:30 01:45 02:00 Temperature Pulse Rate 83 79 80 Pulse Rate [ From Monitor] Pulse Rate [ Left Dorsalis Pedis] Pulse Rate [ Left Radial] Pulse Rate [ Right Dorsalis Pedis] Pulse Rate [ Right Radial] Respiratory 13 17 14 Rate Blood Pressure 99/61 90/55 99/55 Blood Pressure [Right] O2 Sat by Pulse 96 94 97 Oximetry 09/17/18 09/17/18 09/17/18 02:15 02:30 02:45 Temperature Pulse Rate 75 76 74 Pulse Rate [ From Monitor] Pulse Rate [ Left Dorsalis Pedis] Pulse Rate [ Left Radial] Pulse Rate [ Right Dorsalis Pedis] Pulse Rate [ Right Radial] Respiratory 12 12 16 Rate Blood Pressure 94/53 81/53 88/55 Blood Pressure [Right] O2 Sat by Pulse 97 96 95 Oximetry 09/17/18 09/17/18 09/17/18 03:00 03:15 03:30 Temperature Pulse Rate 78 74 74 Pulse Rate [ From Monitor] Pulse Rate [ Left Dorsalis Pedis] Pulse Rate [ Left Radial] Pulse Rate [ Right Dorsalis Pedis] Pulse Rate [ Right Radial] Respiratory 14 14 14 Rate Blood Pressure 81/54 81/49 84/59 Blood Pressure [Right] O2 Sat by Pulse 95 95 94 Oximetry 09/17/18 09/17/18 09/17/18 03:45 04:00 04:15 Temperature 98.8 F Pulse Rate 78 69 73 Pulse Rate [ 80 From Monitor] Pulse Rate [ Left Dorsalis Pedis] Pulse Rate [ Left Radial] Pulse Rate [ Right Dorsalis Pedis] Pulse Rate [ Right Radial] Respiratory 16 17 16 Rate Blood Pressure 86/55 96/60 104/62 Blood Pressure [Right] O2 Sat by Pulse 96 97 99 Oximetry 09/17/18 09/17/18 09/17/18 04:25 04:30 04:45 Temperature Pulse Rate 77 82 Pulse Rate [ From Monitor] Pulse Rate [ Left Dorsalis Pedis] Pulse Rate [ Left Radial] Pulse Rate [ Right Dorsalis Pedis] Pulse Rate [ Right Radial] Respiratory 14 11 L 13 Rate Blood Pressure 100/65 88/61 Blood Pressure [Right] O2 Sat by Pulse 97 96 Oximetry 09/17/18 09/17/18 09/17/18 05:00 05:16 05:30 Temperature Pulse Rate 81 80 76 Pulse Rate [ From Monitor] Pulse Rate [ Left Dorsalis Pedis] Pulse Rate [ Left Radial] Pulse Rate [ Right Dorsalis Pedis] Pulse Rate [ Right Radial] Respiratory 20 16 Rate Blood Pressure 88/61 97/56 Blood Pressure [Right] O2 Sat by Pulse 99 Oximetry 09/17/18 09/17/18 09/17/18 05:45 06:00 06:15 Temperature Pulse Rate 74 76 72 Pulse Rate [ From Monitor] Pulse Rate [ Left Dorsalis Pedis] Pulse Rate [ Left Radial] Pulse Rate [ Right Dorsalis Pedis] Pulse Rate [ Right Radial] Respiratory 13 13 11 L Rate Blood Pressure 87/51 85/55 80/50 Blood Pressure [Right] O2 Sat by Pulse 97 98 98 Oximetry 09/17/18 09/17/18 09/17/18 06:30 06:45 07:00 Temperature Pulse Rate 83 73 68 Pulse Rate [ From Monitor] Pulse Rate [ Left Dorsalis Pedis] Pulse Rate [ Left Radial] Pulse Rate [ Right Dorsalis Pedis] Pulse Rate [ Right Radial] Respiratory 18 14 15 Rate Blood Pressure 78/51 78/44 89/57 Blood Pressure [Right] O2 Sat by Pulse 99 98 99 Oximetry 09/17/18 09/17/18 09/17/18 07:15 07:30 07:46 Temperature Pulse Rate 71 69 75 Pulse Rate [ From Monitor] Pulse Rate [ Left Dorsalis Pedis] Pulse Rate [ Left Radial] Pulse Rate [ Right Dorsalis Pedis] Pulse Rate [ Right Radial] Respiratory 13 13 18 Rate Blood Pressure 99/54 82/48 104/71 Blood Pressure [Right] O2 Sat by Pulse 100 98 85 Oximetry 09/17/18 09/17/18 09/17/18 08:00 09:14 09:15 Temperature 98.1 F Pulse Rate 70 73 76 Pulse Rate [ From Monitor] Pulse Rate [ Left Dorsalis Pedis] Pulse Rate [ Left Radial] Pulse Rate [ 75 Right Dorsalis Pedis] Pulse Rate [ Right Radial] Respiratory 14 14 14 Rate Blood Pressure 92/56 92/56 82/46 Blood Pressure [Right] O2 Sat by Pulse 97 90 91 Oximetry - General Appearance General appearance: well-developed, well-nourished, appears stated age EENT: ATNC, PERRL, mucous membranes moist Neck: no JVD Respiratory: Present: Clear to Ascultation Cardiology: regular, S1S2 Gastrointestinal: normoactive bowel sounds Integumentary: no rash, other (no edema ) Neurologic: no focal deficit, alert and oriented x3, strength 5/5, CN 3-12 intact Psychiatric: mood/affect appropriate, cooperative - Lab 09/17/18 04:10 09/17/18 04:10 Most recent lab results Calcium 7.0 mg/dL (8.4-10.2) L 09/17/18 04:10 Medications & Allergies - Medications Allergies/Adverse Reactions: Allergies chlorhexidine Allergy (Verified 06/20/16 08:45) Itching hydralazine Allergy (Verified 06/06/16 14:28) Unknown shellfish derived Allergy (Verified 10/01/14 09:46) Swelling itching iodine Adverse Reaction (Verified 10/06/14 06:31) Swelling shortness of breath Home Medications: Home Medications Medication Instructions Recorded Confirmed Last Taken Type Ergocalciferol (Vitamin D2) 50,000 unit PO QWEEK 09/16/18 09/16/18 Unknown History [Drisdol] Hydrocortisone [Anucort-HC SUPPOS] 25 mg RC BID 09/16/18 09/16/18 Unknown History Ondansetron [Zofran TAB] 4 mg PO Q8HR PRN 09/16/18 09/16/18 Unknown History Zolpidem [Ambien] 10 mg PO QHS 09/16/18 09/16/18 Unknown History Active Medications: Generic Name Dose Route Start Last Admin Trade Name Freq PRN Reason Stop Dose Admin Atorvastatin Calcium 20 mg 09/16/18 22:00 09/16/18 23:40 Lipitor PO 20 mg QHS [facility] Administration Epoetin Per 20,000 unit 09/18/18 10:00 Procrit SUB-Q 09/25/18 09:59 QWEEK DIMITRI Famotidine 20 mg 09/17/18 10:00 09/17/18 09:46 Pepcid PO 20 mg QDAY DIMITRI Administration Heparin Sodium (Porcine) 5,000 unit 09/16/18 22:00 09/17/18 09:46 Heparin SUB-Q 5,000 unit Q12HR DIMITRI Administration Hydromorphone HCl 0.5 mg 09/16/18 20:23 09/17/18 04:25 Dilaudid IV 0.5 mg Q3H PRN Administration Pain , Severe (7-10) Norepinephrine 4 mg in 250 mls @ 7.5 mls/hr 09/16/18 08:45 09/17/18 09:30 Levophed Drip 4 Mg/Ns 250 Ml IV 4 mcg/min TITR DIMITRI 15 mls/hr Titration Protocol 2 MCG/MIN Cefepime HCl 0.5 gm/ Sodium 100 mls @ 200 mls/hr 09/16/18 14:00 09/16/18 23:52 Chloride IV Not Given Q24H [facility] Sodium Chloride 1,000 mls @ 75 mls/hr 09/16/18 14:00 09/16/18 23:51 Nacl 0.9% 1000 Ml IV 09/18/18 03:19 75 mls/hr DIRECT DIMITRI Administration Morphine Sulfate 2 mg 09/16/18 14:13 09/16/18 23:38 Morphine IV 2 mg Q4H PRN Administration Pain, Moderate (4-6) Peritoneal Dialysis Solution 2,000 ml 09/17/18 12:00 Dianeal Pd-2 W/1.5% Dextrose IP Q6HR [facility] Sodium Bicarbonate 1,300 mg 09/17/18 10:00 09/17/18 09:47 Sodium Bicarbonate PO 1,300 mg BID DIMITRI Administration
[2018-09-17] MEDS: NACL 0.9% 1000 ML 1,000 ML IV SCH (12:44)
[2018-09-17] MEDS: DIANEAL PD-2 W/1.5% DEXTROSE IP SCH ×2 (12:47→19:01)
[2018-09-17] MEDS: FLEXERIL PO PRN ×2 (13:42→22:13)
[2018-09-17] MEDS: MAXIPIME 0.5 GM in NACL 0.9% 100 ML IV SCH (13:42)
[2018-09-17] MEDS ORDERED: DIANEAL PD-2 W/1.5% DEXTROSE IP ONE ×2 (15:00→20:00)
--- NOTE | 2018-09-17 17:21 | Progress Note ---
Assessment and Plan Assessment and plan: 58-year-old -[place] female with past medical history significant for end-stage renal disease on PD, gastroparesis, anxiety, hypertension presented to the emergency department with complaints of chest pain that started yesterday around lunchtime. Midsternal constant chest pain, 10 out of 10 intensity, sharp, with radiation to the back, associated shortness of breath, no other aggravating or aggravating factors identified. Patient is complaining dizziness but didn't passed out. In the emergency department patient was hypotensive and was given IV fluids with significant improvement, central line was placed and was placed on norepinephrine. vasogenic shock.m Per patient baseline systolic BP is around 99 - Infectious vs dehydration - Wean Pressor with Map of >65 - Patient is empirically on IV cefepime and vancomycin - IV fluids, on pressor - Critical care consulted NSTEMI - In the setting of ESRD - Cardiology consulted, input noted, - Echo normal ESRD on PD - Nephrology consulted Anemia of chronic disease -Monitor DVT prophylaxis - On heparin Disposition - Admit to ICU The high probability of a clinically significant, sudden or life threatening deterioration of the [CV, renal] system(s) required my full and direct attention, intervention and personal management. The aggregate critical care time was [31] minutes. This time is in addition to time spent performing reported procedures but includes the following: [x] Data Review and interpretation [x] Patient assessment and monitoring of vital signs [x] Documentation [x] Medication orders and management History Interval history: Patient seen and examined today in no acute distress resting comfortably. Still with intermittent chest discomfort Hospitalist Physical - Physical exam Narrative exam: VITAL SIGNS: Reviewed. GENERAL: The patient appeared well nourished and normally developed. Vital signs as documented. HEAD: No signs of head trauma. EYES: Pupils are equal. Extraocular motions intact. EARS: Hearing grossly intact. MOUTH: Oropharynx is normal. NECK: No adenopathy, no JVD. CHEST: Chest with clear breath sounds bilaterally. No wheezes, rales, or rhonchi. CARDIAC: Regular rate and rhythm. S1 and S2, without murmurs, gallops, or rubs. VASCULAR: No Edema. Peripheral pulses normal and equal in all extremities. ABDOMEN: Soft, without detectable tenderness. No sign of distention. No rebound or guarding, and no masses palpated. Bowel Sounds normal. MUSCULOSKELETAL: Good range of motion of all major joints. Extremities without clubbing, cyanosis or edema. NEUROLOGIC EXAM: Alert and oriented x 3. No focal sensory or strength deficits. Speech normal. Follows commands. PSYCHIATRIC: Mood normal. SKIN: No rash or lesions. - Constitutional Vitals: Temp Pulse Resp BP Pulse Ox 98.8 F 73 14 100/59 93 09/17/18 16:00 09/17/18 17:00 09/17/18 17:00 09/17/18 17:00 09/17/18 17:00 General appearance: Present: no acute distress Results - Labs CBC & Chem 7: 09/17/18 04:10 09/17/18 04:10 Labs: Laboratory Last Values WBC 12.4 K/mm3 (4.5-11.0) H 09/17/18 04:10 RBC 3.56 M/mm3 (3.65-5.03) L 09/17/18 04:10 Hgb 10.2 gm/dl (10.1-14.3) 09/17/18 04:10 Hct 31.8 % (30.3-42.9) 09/17/18 04:10 MCV 89 fl (79-97) 09/17/18 04:10 MCH 29 pg (28-32) 09/17/18 04:10 MCHC 32 % (30-34) 09/17/18 04:10 RDW 15.1 % (13.2-15.2) 09/17/18 04:10 Plt Count 329 K/mm3 (140-440) 09/17/18 04:10 Lymph % (Auto) 12.2 % (13.4-35.0) L 09/17/18 04:10 [place] % (Auto) 12.6 % (0.0-7.3) H 09/17/18 04:10 Eos % (Auto) 0.2 % (0.0-4.3) 09/17/18 04:10 Baso % (Auto) 0.3 % (0.0-1.8) 09/17/18 04:10 Lymph # 1.5 K/mm3 (1.2-5.4) 09/17/18 04:10 [place] # 1.6 K/mm3 (0.0-0.8) H 09/17/18 04:10 Eos # 0.0 K/mm3 (0.0-0.4) 09/17/18 04:10 Baso # 0.0 K/mm3 (0.0-0.1) 09/17/18 04:10 Seg Neutrophils % 74.7 % (40.0-70.0) H 09/17/18 04:10 Seg Neutrophils # 9.2 K/mm3 (1.8-7.7) H 09/17/18 04:10 PT 12.6 Sec. (12.2-14.9) 09/16/18 06:44 INR 0.90 (0.87-1.13) 09/16/18 06:44 D-Dimer 301.01 ng/mlDDU (0-234) H 09/16/18 06:44 Sodium 135 mmol/L (137-145) L 09/17/18 04:10 Potassium 4.5 mmol/L (3.6-5.0) D 09/17/18 04:10 Chloride 99.9 mmol/L (98-107) 09/17/18 04:10 Carbon Dioxide 15 mmol/L (22-30) L 09/17/18 04:10 Anion Gap 25 mmol/L 09/17/18 04:10 BUN 85 mg/dL (7-17) H 09/17/18 04:10 Creatinine 17.1 mg/dL (0.7-1.2) H 09/17/18 04:10 Estimated GFR 3 ml/min 09/17/18 04:10 BUN/Creatinine Ratio 5 % 09/17/18 04:10 Glucose 107 mg/dL (65-100) H 09/17/18 04:10 Lactic Acid 1.50 mmol/L (0.7-2.0) 09/16/18 14:29 Calcium 7.0 mg/dL (8.4-10.2) L 09/17/18 04:10 Troponin T 0.065 ng/mL (0.00-0.029) H D 09/16/18 09:31 C-Reactive Protein 1.70 mg/dL (0.00-1.30) H 09/16/18 14:29 NT-Pro-B Natriuret Pep 4189 pg/mL (0-900) H 09/16/18 06:44 Triglycerides 68 mg/dL (2-149) 09/16/18 03:29 Cholesterol 226 mg/dL (50-199) H 09/16/18 03:29 LDL Cholesterol Direct 150 mg/dL (50-130) H 09/16/18 03:29 HDL Cholesterol 89 mg/dL (40-59) H 09/16/18 03:29 Cholesterol/HDL Ratio 2.53 % 09/16/18 03:29
[2018-09-18] MEDS: DIANEAL PD-2 W/1.5% DEXTROSE IP SCH ×4 (01:43→17:37)
[2018-09-18 07:48] LABS: Red Blood Count 3.04 M/mm3 (3.65-5.03)
[2018-09-18 07:53] LABS: Basophils % (Auto) 0.8 % (0.0-1.8); Eosinophils % (Auto) 2.8 % (0.0-4.3); Hematocrit 26.7 % (30.3-42.9); Hemoglobin 8.6 gm/dl (10.1-14.3); Lymphocytes # (Auto) 1.2 K/mm3 (1.2-5.4); Lymphocytes % (Auto) 20.3 % (13.4-35.0); Mean Corpuscular HGB Conc 32 % (30-34); Mean Corpuscular Volume 88 fl (79-97); Monocytes % (Auto) 12.3 % (0.0-7.3); Platelet Count 262 K/mm3 (140-440)
[2018-09-18 07:54] LABS: Eosinophils # (Auto) 0.2 K/mm3 (0.0-0.4); Monocytes # (Auto) 0.8 K/mm3 (0.0-0.8)
[2018-09-18 08:04] LABS: Calcium 6.7 mg/dL (8.4-10.2)
[2018-09-18] MEDS ORDERED: TRIPLE ANTIBIOTIC TP ONE (09:00)
[2018-09-18] MEDS: HEPARIN SUB-Q SCH ×2 (09:03→21:56)
[2018-09-18] MEDS: PEPCID PO SCH (09:08)
[2018-09-18] MEDS: SODIUM BICARBONATE PO SCH ×2 (09:08→21:56)
--- NOTE | 2018-09-18 09:53 | Progress Note ---
Assessment and Plan Proceed with completion of lexiscan MPI stress test today. Await findings. The patient has been seen in conjunction with Dr. Salguero who agrees with the assessment and plan of care. - Patient Problems (1) Chest pain Current Visit: Yes Status: Acute (2) Hypotension Current Visit: Yes Status: Acute (3) ESRD (end stage renal disease) Current Visit: Yes Status: Acute (4) Anemia Current Visit: Yes Status: Chronic Qualifiers: Other causes of anemia: chronic disease, kidney (5) Hyperlipidemia Current Visit: Yes Status: Chronic (6) Elevated troponin Current Visit: Yes Status: Acute Subjective Date of service: 09/18/18 Principal diagnosis: cp; hypotension Interval history: pt with no current cardiac complaints, currently weaned off levophed gtt. Objective Last Vital Signs Temp 98.8 F 09/18/18 08:00 Pulse 72 09/18/18 09:00 Resp 13 09/18/18 09:00 BP 95/58 09/18/18 09:00 Pulse Ox 100 09/18/18 09:00 - Physical Examination General: No Apparent Distress HEENT: Positive: PERRL, Normocephaly, Mucus Membranes Moist Neck: Positive: neck supple Cardiac: Positive: Reg Rate and Rhythm, S1/S2 Lungs: Positive: clear to auscultation Neuro: Positive: Grossly Intact Abdomen: Positive: Soft. Negative: Tender Skin: Negative: Rash, Wound Musculoskeletal: No Pain Extremities: Absent: edema - Labs and Meds CBC 09/18/18 Range/Units 07:29 WBC 6.2 (4.5-11.0) K/mm3 RBC 3.04 L (3.65-5.03) M/mm3 Hgb 8.6 L (10.1-14.3) gm/dl Hct 26.7 L (30.3-42.9) % Plt Count 262 (140-440) K/mm3 Lymph # 1.2 (1.2-5.4) K/mm3 [place] # 0.8 (0.0-0.8) K/mm3 Eos # 0.2 (0.0-0.4) K/mm3 Baso # 0.0 (0.0-0.1) K/mm3 Comprehensive Metabolic Panel 09/18/18 Range/Units 07:29 Sodium 137 (137-145) mmol/L Potassium 4.0 (3.6-5.0) mmol/L Chloride 100.0 (98-107) mmol/L Carbon Dioxide 16 L (22-30) mmol/L BUN 76 H (7-17) mg/dL Creatinine 16.0 H (0.7-1.2) mg/dL Glucose 90 (65-100) mg/dL Calcium 6.7 L (8.4-10.2) mg/dL - Imaging and Cardiology EKG: report reviewed, image reviewed Echo: report reviewed (EF 60-65%, RV mildly dilated, mod MR. ) - EKG Sinus rhythms and dysrhythmias: sinus rhythm
[2018-09-18] MEDS ORDERED: PROCRIT SUB-Q SCH (10:00)
--- NOTE | 2018-09-18 10:02 | Progress Note ---
Assessment and Plan - Patient Problems (1) Shock Current Visit: Yes Status: Acute Plan to address problem: hypovolemic vs septic shock. no evidence of PE on CT angio, ECHO showed normal LVSF without evidence of pericardial effusion. BP now stabilized, pt remains off levophed. (2) Chest pain Current Visit: Yes Status: Acute Plan to address problem: follow cardiology recommendations. to complete [place] scan this AM (3) ESRD (end stage renal disease) Current Visit: Yes Status: Acute Plan to address problem: resume CAPD given worsening azotemia, metabolic acidosis. started CAPD w/ dineal 1.5% x 4 cycles/day. cathflo instillation for PD cath malfunction. o rdered 6mg cathflo in 10cc NS with dwell time 0.5-1hr (4) Metabolic acidosis Current Visit: Yes Status: Acute Plan to address problem: cont na bicarb 1300mg bid; cont PD (5) Anemia in end-stage renal disease Current Visit: No Status: Chronic Plan to address problem: cont EPO [id number] q week Subjective Date of service: 09/18/18 Principal diagnosis: cp; hypotension Interval history: Patient with stable BP, off levophed. pt could perform PD x 3 cycles, but had difficulty to instill PD fluid for the 4th cycle. pt observed some fibrin clots while draining fluids. pt denies fever, chills, CP, palpitations, n/v/d Objective - Vital Signs Vital signs: Vital Signs - 12hr 09/17/18 09/17/18 09/17/18 22:00 22:15 22:30 Temperature Pulse Rate 77 78 83 Pulse Rate [ From Monitor] Respiratory 12 11 L 21 Rate Respiratory 14 Rate [Chest] Blood Pressure 110/64 112/68 107/61 O2 Sat by Pulse 95 98 79 L Oximetry 09/17/18 09/17/18 09/17/18 22:45 23:00 23:15 Temperature Pulse Rate 80 82 82 Pulse Rate [ From Monitor] Respiratory 18 18 16 Rate Respiratory Rate [Chest] Blood Pressure 102/58 115/62 110/67 O2 Sat by Pulse 96 95 95 Oximetry 09/17/18 09/17/18 09/18/18 23:30 23:45 00:00 Temperature 98.0 F Pulse Rate 79 84 80 Pulse Rate [ 78 From Monitor] Respiratory 17 18 15 Rate Respiratory Rate [Chest] Blood Pressure 107/59 97/66 87/61 O2 Sat by Pulse 93 93 Oximetry 09/18/18 09/18/18 09/18/18 00:15 00:30 00:45 Temperature Pulse Rate 81 78 81 Pulse Rate [ From Monitor] Respiratory 15 14 16 Rate Respiratory Rate [Chest] Blood Pressure 101/62 88/54 86/58 O2 Sat by Pulse 94 97 95 Oximetry 09/18/18 09/18/18 09/18/18 01:00 01:15 01:30 Temperature Pulse Rate 78 77 80 Pulse Rate [ From Monitor] Respiratory 14 14 19 Rate Respiratory Rate [Chest] Blood Pressure 91/53 84/50 90/55 O2 Sat by Pulse 98 96 96 Oximetry 09/18/18 09/18/18 09/18/18 01:45 02:00 02:15 Temperature Pulse Rate 79 82 75 Pulse Rate [ From Monitor] Respiratory 16 13 15 Rate Respiratory Rate [Chest] Blood Pressure 83/50 92/47 91/58 O2 Sat by Pulse 99 83 L 97 Oximetry 09/18/18 09/18/18 09/18/18 02:30 02:45 03:00 Temperature Pulse Rate 76 76 77 Pulse Rate [ From Monitor] Respiratory 14 15 15 Rate Respiratory Rate [Chest] Blood Pressure 94/57 89/49 89/50 O2 Sat by Pulse 97 95 Oximetry 09/18/18 09/18/18 09/18/18 03:15 03:30 03:45 Temperature Pulse Rate 77 76 76 Pulse Rate [ From Monitor] Respiratory 14 16 14 Rate Respiratory Rate [Chest] Blood Pressure 86/52 91/54 85/61 O2 Sat by Pulse 95 94 95 Oximetry 09/18/18 09/18/18 09/18/18 04:00 04:15 04:30 Temperature 98.9 F Pulse Rate 73 72 73 Pulse Rate [ 73 From Monitor] Respiratory 16 14 15 Rate Respiratory Rate [Chest] Blood Pressure 85/61 75/39 68/39 O2 Sat by Pulse 94 96 Oximetry 09/18/18 09/18/18 09/18/18 04:46 05:00 05:15 Temperature Pulse Rate 74 75 73 Pulse Rate [ From Monitor] Respiratory 16 16 13 Rate Respiratory Rate [Chest] Blood Pressure 92/54 89/56 98/57 O2 Sat by Pulse 95 99 Oximetry 09/18/18 09/18/18 09/18/18 05:30 05:45 06:00 Temperature Pulse Rate 72 74 75 Pulse Rate [ From Monitor] Respiratory 14 13 14 Rate Respiratory Rate [Chest] Blood Pressure 87/50 89/53 78/53 O2 Sat by Pulse 97 98 Oximetry 09/18/18 09/18/18 09/18/18 06:15 06:30 06:45 Temperature Pulse Rate 72 73 71 Pulse Rate [ From Monitor] Respiratory 13 16 15 Rate Respiratory Rate [Chest] Blood Pressure 77/53 78/54 95/59 O2 Sat by Pulse 96 98 Oximetry 09/18/18 09/18/18 09/18/18 07:00 07:15 07:30 Temperature Pulse Rate 74 75 77 Pulse Rate [ From Monitor] Respiratory 14 14 14 Rate Respiratory Rate [Chest] Blood Pressure 95/51 77/48 93/45 O2 Sat by Pulse 95 99 95 Oximetry 09/18/18 09/18/18 09/18/18 07:45 08:00 08:15 Temperature 98.8 F Pulse Rate 77 74 75 Pulse Rate [ 72 From Monitor] Respiratory 14 14 14 Rate Respiratory Rate [Chest] Blood Pressure 86/56 92/59 97/62 O2 Sat by Pulse 97 96 97 Oximetry 09/18/18 09/18/18 09/18/18 08:30 08:45 09:00 Temperature Pulse Rate 78 73 72 Pulse Rate [ From Monitor] Respiratory 12 14 13 Rate Respiratory Rate [Chest] Blood Pressure 93/64 90/55 95/58 O2 Sat by Pulse 98 100 100 Oximetry - General Appearance General appearance: well-developed, well-nourished, appears stated age EENT: ATNC, PERRL, mucous membranes moist Neck: no JVD Respiratory: Present: Clear to Ascultation Cardiology: regular, S1S2 Gastrointestinal: normoactive bowel sounds Integumentary: no rash, other (no edema ) Neurologic: no focal deficit, alert and oriented x3, strength 5/5, CN 3-[address] Psychiatric: mood/affect appropriate, cooperative - Lab 09/18/18 07:29 09/18/18 07:29 Most recent lab results Calcium 6.7 mg/dL (8.4-10.2) L 09/18/18 07:29 Medications & Allergies - Medications Allergies/Adverse Reactions: Allergies chlorhexidine Allergy (Verified 06/20/16 08:45) Itching hydralazine Allergy (Verified 06/06/16 14:28) Unknown shellfish derived Allergy (Verified 10/01/14 09:46) Swelling itching iodine Adverse Reaction (Verified 10/06/14 06:31) Swelling shortness of breath Home Medications: Home Medications Medication Instructions Recorded Confirmed Last Taken Type Ergocalciferol (Vitamin D2) 50,000 unit PO QWEEK 09/16/18 09/16/18 Unknown History [Drisdol] Hydrocortisone [Anucort-HC SUPPOS] 25 mg RC BID 09/16/18 09/16/18 Unknown History Ondansetron [Zofran TAB] 4 mg PO Q8HR PRN 09/16/18 09/16/18 Unknown History Zolpidem [Ambien] 10 mg PO QHS 09/16/18 09/16/18 Unknown History Active Medications: Generic Name Dose Route Start Last Admin Trade Name Freq PRN Reason Stop Dose Admin Alteplase, Recombinant 6 mg 09/18/18 09:55 Cathflo HEMOD-PORT 09/18/18 09:56 ONCE ONE Atorvastatin Calcium 20 mg 09/16/18 22:00 09/17/18 21:54 Lipitor PO 20 mg QHS DIMITRI Administration Cyclobenzaprine HCl 5 mg 09/17/18 11:40 09/17/18 22:13 Flexeril PO 5 mg BID PRN Administration Muscle Spasm Epoetin Per 20,000 unit 09/18/18 10:00 Procrit SUB-Q 09/25/18 12:00 We DIMITRI Famotidine 20 mg 09/17/18 10:00 09/18/18 09:08 Pepcid PO Not Given QDAY DIMITRI Heparin Sodium (Porcine) 5,000 unit 09/16/18 22:00 09/18/18 09:03 Heparin SUB-Q 5,000 unit Q12HR DIMITRI Administration Cefepime HCl 0.5 gm/ Sodium 100 mls @ 200 mls/hr 09/16/18 14:00 09/17/18 13:42 Chloride IV 200 mls/hr Q24H DIMITRI Administration Morphine Sulfate 2 mg 09/16/18 14:13 09/16/18 23:38 Morphine IV 2 mg Q4H PRN Administration Pain, Moderate (4-6) Peritoneal Dialysis Solution 2,000 ml 09/17/18 12:00 09/18/18 07:16 [place] Pd-2 W/1.5% Dextrose IP Not Given Q6HR DIMITRI Sodium Bicarbonate 1,300 mg 09/17/18 10:00 09/18/18 09:08 Sodium Bicarbonate PO Not Given BID DIMITRI
--- NOTE | 2018-09-18 10:55 | Progress Note ---
Assessment and Plan Severe sepsis with shock, resolved End-stage renal disease, on peritoneal dialysis. History of hypertension. History of venous thromboembolic phenomenon. Gastroesophageal reflux disease. Chest pain NSTEMI History of migraine headaches. History of pancreatitis. Anemia that is normocytic, likely of chronic disease. Elevated D-dimer. Mild hypokalemia. Mild metabolic acidosis. Elevated serum troponins -Empiric antibiotics, follow cultures( no growth to date) -De-escalate antibiotics - supplemental oxygen as needed to keep O2 saturation > 90% - Peritoneal dialysis for toxin and volume management - VTE prophylaxis -Chronic home medications - PT/OT and increase ambulation - continue other care per attending / other consultants Discharge planning Subjective Date of service: 09/18/18 Principal diagnosis: cp; hypotension Interval history: Patient is seen today for: Severe sepsis with shock; End-stage renal disease, on peritoneal dialysis; H/O hypertension; History of venous thromboembolic phenomenon; Gastroesophageal reflux disease; Chest pain; NSTEMI; History of migraine headaches. Seen and examined at bedside; 24hour events reviewed; nursing and respiratory care staff consulted; no adverse overnight events reported to me; sitting peacefully in chair; feels better overall; denies acute chest pains or palpitations but + some CONTEH; No N/V/F/C, off vasopressor support Objective - Exam Narrative Exam: General appearance: no acute distress HEENT: Positive: PERRL, Normocephaly, Mucus Membranes Moist Neck: Positive: neck supple, trachea midline Cardiac: Positive: Reg Rate and Rhythm, S1/S2, Systolic Murmur Lungs: Positive: clear to auscultation Neuro: Positive: Grossly Intact Abdomen: Positive: Soft. Negative: Tender Skin: Negative: Rash, Wound Musculoskeletal: No Pain Extremities: Absent: edema Vital Signs - 12hr 09/17/18 09/17/18 09/17/18 23:00 23:15 23:30 Temperature Pulse Rate 82 82 79 Pulse Rate [ From Monitor] Respiratory 18 16 17 Rate Blood Pressure 115/62 110/67 107/59 O2 Sat by Pulse 95 95 93 Oximetry 09/17/18 09/18/18 09/18/18 23:45 00:00 00:15 Temperature 98.0 F Pulse Rate 84 80 81 Pulse Rate [ 78 From Monitor] Respiratory 18 15 15 Rate Blood Pressure 97/66 87/61 101/62 O2 Sat by Pulse 93 94 Oximetry 09/18/18 09/18/18 09/18/18 00:30 00:45 01:00 Temperature Pulse Rate 78 81 78 Pulse Rate [ From Monitor] Respiratory 14 16 14 Rate Blood Pressure 88/54 86/58 91/53 O2 Sat by Pulse 97 95 98 Oximetry 09/18/18 09/18/18 09/18/18 01:15 01:30 01:45 Temperature Pulse Rate 77 80 79 Pulse Rate [ From Monitor] Respiratory 14 19 16 Rate Blood Pressure 84/50 90/55 83/50 O2 Sat by Pulse 96 96 99 Oximetry 09/18/18 09/18/18 09/18/18 02:00 02:15 02:30 Temperature Pulse Rate 82 75 76 Pulse Rate [ From Monitor] Respiratory 13 15 14 Rate Blood Pressure 92/47 91/58 94/57 O2 Sat by Pulse 83 L 97 97 Oximetry 09/18/18 09/18/18 09/18/18 02:45 03:00 03:15 Temperature Pulse Rate 76 77 77 Pulse Rate [ From Monitor] Respiratory 15 15 14 Rate Blood Pressure 89/49 89/50 86/52 O2 Sat by Pulse 95 95 Oximetry 09/18/18 09/18/18 09/18/18 03:30 03:45 04:00 Temperature 98.9 F Pulse Rate 76 76 73 Pulse Rate [ 73 From Monitor] Respiratory 16 14 16 Rate Blood Pressure 91/54 85/61 85/61 O2 Sat by Pulse 94 95 94 Oximetry 09/18/18 09/18/18 09/18/18 04:15 04:30 04:46 Temperature Pulse Rate 72 73 74 Pulse Rate [ From Monitor] Respiratory 14 15 16 Rate Blood Pressure 75/39 68/39 92/54 O2 Sat by Pulse 96 95 Oximetry 09/18/18 09/18/18 09/18/18 05:00 05:15 05:30 Temperature Pulse Rate 75 73 72 Pulse Rate [ From Monitor] Respiratory 16 13 14 Rate Blood Pressure 89/56 98/57 87/50 O2 Sat by Pulse 99 Oximetry 09/18/18 09/18/18 09/18/18 05:45 06:00 06:15 Temperature Pulse Rate 74 75 72 Pulse Rate [ From Monitor] Respiratory 13 14 13 Rate Blood Pressure 89/53 78/53 77/53 O2 Sat by Pulse 97 98 96 Oximetry 09/18/18 09/18/18 09/18/18 06:30 06:45 07:00 Temperature Pulse Rate 73 71 74 Pulse Rate [ From Monitor] Respiratory 16 15 14 Rate Blood Pressure 78/54 95/59 95/51 O2 Sat by Pulse 98 95 Oximetry 09/18/18 09/18/18 09/18/18 07:15 07:30 07:45 Temperature Pulse Rate 75 77 77 Pulse Rate [ From Monitor] Respiratory 14 14 14 Rate Blood Pressure 77/48 93/45 86/56 O2 Sat by Pulse 99 95 97 Oximetry 09/18/18 09/18/18 09/18/18 08:00 08:15 08:30 Temperature 98.8 F Pulse Rate 74 75 78 Pulse Rate [ 72 From Monitor] Respiratory 14 14 12 Rate Blood Pressure 92/59 97/62 93/64 O2 Sat by Pulse 96 97 98 Oximetry 09/18/18 09/18/18 08:45 09:00 Temperature Pulse Rate 73 72 Pulse Rate [ From Monitor] Respiratory 14 13 Rate Blood Pressure 90/55 95/58 O2 Sat by Pulse 100 100 Oximetry CBC and BMP: 09/20/18 05:47 09/20/18 05:47 ABG, PT/INR, D-dimer: PT/INR, D-dimer PT 12.6 Sec. (12.2-14.9) 09/16/18 06:44 INR 0.90 (0.87-1.13) 09/16/18 06:44 D-Dimer 301.01 ng/mlDDU (0-234) H 09/16/18 06:44 Abnormal lab findings: Abnormal Labs 09/16/18 09/16/18 09/16/18 03:29 03:29 06:03 WBC RBC 3.20 L Hgb 9.2 L Hct 28.3 L Lymph % (Auto) 8.8 L [place] % (Auto) 10.8 H Lymph # 0.8 L [place] # 1.0 H Seg Neutrophils % 78.3 H Seg Neutrophils # D-Dimer Sodium Potassium 3.3 L Chloride 95.0 L Carbon Dioxide 20 L BUN 81 H Creatinine 16.4 H Glucose 127 H Calcium 7.5 L Troponin T 0.100 H 0.082 H C-Reactive Protein NT-Pro-B Natriuret Pep Cholesterol 226 H LDL Cholesterol Direct 150 H HDL Cholesterol 89 H 09/16/18 09/16/18 09/16/18 06:44 06:44 09:31 WBC RBC Hgb Hct Lymph % (Auto) [place] % (Auto) Lymph # [place] # Seg Neutrophils % Seg Neutrophils # D-Dimer 301.01 H Sodium Potassium Chloride Carbon Dioxide BUN Creatinine Glucose Calcium Troponin T 0.065 H D C-Reactive Protein NT-Pro-B Natriuret Pep 4189 H Cholesterol LDL Cholesterol Direct HDL Cholesterol 09/16/18 09/17/18 09/17/18 14:29 04:10 04:10 WBC 12.4 H RBC 3.56 L Hgb Hct Lymph % (Auto) 12.2 L [place] % (Auto) 12.6 H Lymph # [place] # 1.6 H Seg Neutrophils % 74.7 H Seg Neutrophils # 9.2 H D-Dimer Sodium 135 L Potassium Chloride Carbon Dioxide 15 L BUN 85 H Creatinine 17.1 H Glucose 107 H Calcium 7.0 L Troponin T C-Reactive Protein 1.70 H NT-Pro-B Natriuret Pep Cholesterol LDL Cholesterol Direct HDL Cholesterol 09/18/18 09/18/18 07:29 07:29 WBC RBC 3.04 L Hgb 8.6 L Hct 26.7 L Lymph % (Auto) [place] % (Auto) 12.3 H Lymph # [place] # Seg Neutrophils % Seg Neutrophils # D-Dimer Sodium Potassium Chloride Carbon Dioxide 16 L BUN 76 H Creatinine 16.0 H Glucose Calcium 6.7 L Troponin T C-Reactive Protein NT-Pro-B Natriuret Pep Cholesterol LDL Cholesterol Direct HDL Cholesterol
[2018-09-18] MEDS ORDERED: CATHFLO HEMOD-PORT ONE (11:00)
--- NOTE | 2018-09-18 12:20 | Cat Scan Report ---
CT ABDOMEN PELVIS WITHOUT CONTRAST: HISTORY: abdominal pain. COMPARISON: 06/16/18. TECHNIQUE: Helical CT in 1.25mm intervals without IV contrast. Sagittal and coronal reconstructions. FINDINGS: Lung bases: Trace bilateral pleural effusions and minor atelectatic changes in the lower lobes have developed. Liver: Normal. Biliary system: Cholecystectomy has been performed. No biliary dilatation. Pancreas: Normal. Spleen: Normal. Kidneys/ureters/bladder: The [place] kidneys are markedly atrophic. No obvious renal mass, calcification or hydronephrosis. The bladder is empty. A peritoneal dialysis catheter terminates in the right lower quadrant. Adrenal glands: Normal. Aorta: The aorta is normal caliber. An IVC filter is in place below the renal veins. Intestines: There is mild oral contrast in the colon. Numerous diverticula are noted throughout the length of the colon. No acute inflammatory process is appreciated. The small bowel loops are normal caliber. Previous surgical changes are noted in the stomach, correlate with history. There appears to be marked thickening of the gastric antrum suggesting gastritis which was also seen on the previous exam. Appendix: Normal. Pelvic viscera: Hysterectomy changes are suspected a 3.5 cm cystic structure is suspected in the right adnexa which could represent a right ovarian cyst. The left adnexa is unremarkable. Ascites: Small perihepatic, perisplenic and pelvic ascites is identified. Adenopathy: None. Musculoskeletal: Normal. IMPRESSION: Marked mucosal thickening of the distal stomach concerning for gastritis. Chronic renal parenchymal disease. Trace bilateral pleural effusions and minor bibasilar atelectasis. Diverticulosis of the colon. 3.5 cm right adnexal cyst. Cholecystectomy. Small ascites.
[2018-09-18] MEDS ORDERED: LEXISCAN IV ONE (13:18)
[2018-09-18] MEDS: MORPHINE IV PRN (15:02)
[2018-09-18] MEDS: MAXIPIME 0.5 GM in NACL 0.9% 100 ML IV SCH (17:37)
--- NOTE | 2018-09-18 17:40 | Progress Note ---
Assessment and Plan Assessment and plan: 58-year-old -[place] female with past medical history significant for end-stage renal disease on PD, gastroparesis, anxiety, hypertension presented to the emergency department with complaints of chest pain that started yesterday around lunchtime. Midsternal constant chest pain, 10 out of 10 intensity, sharp, with radiation to the back, associated shortness of breath, no other aggravating or aggravating factors identified. Patient is complaining dizziness but didn't passed out. In the emergency department patient was hypotensive and was given IV fluids with significant improvement, central line was placed and was placed on norepinephrine. vasogenic shock.-Resolved Per patient baseline systolic BP is around 99 - Infectious vs dehydration - Wean Pressor with Map of >65 - Patient is empirically on IV cefepime and vancomycin - IV fluids, on pressor - Critical care consulted Abdominal Pain- Acute Gastritis- NOTED ON CT ABDOMEN -PPI -Pain control Diverticulosis -Dietary advise provided. NSTEMI - In the setting of ESRD - Cardiology consulted, input noted, - Echo normal ESRD on PD - Nephrology consulted Anemia of chronic disease -Monitor DVT prophylaxis - On heparin Disposition -OK TO TRANSFER TO TELEMETRY History Interval history: Patient seen and examined today in no acute distress resting comfortably. Reports improvement in chest pain with the muscle relaxant. Complained of abdominal pain today. Dialysis was not completed this am, due clogged PD catheter. Abdominal pain 5/10 in intensity Hospitalist Physical - Physical exam Narrative exam: VITAL SIGNS: Reviewed. GENERAL: The patient appeared well nourished and normally developed. Vital signs as documented. HEAD: No signs of head trauma. EYES: Pupils are equal. Extraocular motions intact. EARS: Hearing grossly intact. MOUTH: Oropharynx is normal. NECK: No adenopathy, no JVD. CHEST: Chest with clear breath sounds bilaterally. No wheezes, rales, or rhonchi. CARDIAC: Regular rate and rhythm. S1 and S2, without murmurs, gallops, or rubs. VASCULAR: No Edema. Peripheral pulses normal and equal in all extremities. ABDOMEN: Soft, mildly tender. Positive fluid shift. No sign of distention. No rebound or guarding, and no masses palpated. Bowel Sounds normal. MUSCULOSKELETAL: Good range of motion of all major joints. Extremities without clubbing, cyanosis or edema. NEUROLOGIC EXAM: Alert and oriented x 3. No focal sensory or strength deficits. Speech normal. Follows commands. PSYCHIATRIC: Mood normal. SKIN: No rash or lesions. - Constitutional Vitals: Temp Pulse Resp BP Pulse Ox 98.8 F 76 14 87/56 96 09/18/18 08:00 09/18/18 17:09 09/18/18 10:50 09/18/18 17:09 09/18/18 17:09 General appearance: Present: no acute distress Results - Labs CBC & Chem 7: 09/18/18 07:29 09/18/18 07:29 Labs: Laboratory Last Values WBC 6.2 K/mm3 (4.5-11.0) 09/18/18 07:29 RBC 3.04 M/mm3 (3.65-5.03) L 09/18/18 07:29 Hgb 8.6 gm/dl (10.1-14.3) L 09/18/18 07:29 Hct 26.7 % (30.3-42.9) L 09/18/18 07:29 MCV 88 fl (79-97) 09/18/18 07:29 MCH 28 pg (28-32) 09/18/18 07:29 MCHC 32 % (30-34) 09/18/18 07:29 RDW 15.0 % (13.2-15.2) 09/18/18 07:29 Plt Count 262 K/mm3 (140-440) 09/18/18 07:29 Lymph % (Auto) 20.3 % (13.4-35.0) 09/18/18 07:29 Amelia % (Auto) 12.3 % (0.0-7.3) H 09/18/18 07:29 Eos % (Auto) 2.8 % (0.0-4.3) 09/18/18 07:29 Baso % (Auto) 0.8 % (0.0-1.8) 09/18/18 07:29 Lymph # 1.2 K/mm3 (1.2-5.4) 09/18/18 07:29 Amelia # 0.8 K/mm3 (0.0-0.8) 09/18/18 07:29 Eos # 0.2 K/mm3 (0.0-0.4) 09/18/18 07:29 Baso # 0.0 K/mm3 (0.0-0.1) 09/18/18 07:29 Seg Neutrophils % 63.8 % (40.0-70.0) 09/18/18 07:29 Seg Neutrophils # 3.9 K/mm3 (1.8-7.7) 09/18/18 07:29 PT 12.6 Sec. (12.2-14.9) 09/16/18 06:44 INR 0.90 (0.87-1.13) 09/16/18 06:44 D-Dimer 301.01 ng/mlDDU (0-234) H 09/16/18 06:44 Sodium 137 mmol/L (137-145) 09/18/18 07:29 Potassium 4.0 mmol/L (3.6-5.0) 09/18/18 07:29 Chloride 100.0 mmol/L (98-107) 09/18/18 07:29 Carbon Dioxide 16 mmol/L (22-30) L 09/18/18 07:29 Anion Gap 25 mmol/L 09/18/18 07:29 BUN 76 mg/dL (7-17) H 09/18/18 07:29 Creatinine 16.0 mg/dL (0.7-1.2) H 09/18/18 07:29 Estimated GFR 3 ml/min 09/18/18 07:29 BUN/Creatinine Ratio 5 % 09/18/18 07:29 Glucose 90 mg/dL (65-100) 09/18/18 07:29 Lactic Acid 1.50 mmol/L (0.7-2.0) 09/16/18 14:29 Calcium 6.7 mg/dL (8.4-10.2) L 09/18/18 07:29 Troponin T 0.065 ng/mL (0.00-0.029) H D 09/16/18 09:31 C-Reactive Protein 1.70 mg/dL (0.00-1.30) H 09/16/18 14:29 NT-Pro-B Natriuret Pep 4189 pg/mL (0-900) H 09/16/18 06:44 Triglycerides 68 mg/dL (2-149) 09/16/18 03:29 Cholesterol 226 mg/dL (50-199) H 09/16/18 03:29 LDL Cholesterol Direct 150 mg/dL (50-130) H 09/16/18 03:29 HDL Cholesterol 89 mg/dL (40-59) H 09/16/18 03:29 Cholesterol/HDL Ratio 2.53 % 09/16/18 03:29 Random Vancomycin 13.3 ug/mL (0-40.0) 09/18/18 04:42
[2018-09-18] MEDS: FLEXERIL PO PRN (18:10)
[2018-09-18] MEDS: PROTONIX IV SCH (18:11)
--- NOTE | 2018-09-18 23:03 | Treadmill Report ---
SINGLE ISOTOPE DUAL STUDY MYOCARDIAL PERFUSION SCAN REPORT AGE: 58. SEX: Female. REFERRING PHYSICIAN: Dr. Niles Valadez, hospitalist. DESCRIPTION OF PROCEDURE: The patient received 10 mCi of technetium 99m Myoview intravenously under resting conditions. Resting myocardial perfusion scan was done. Subsequently, the patient underwent Lexiscan stress test as per the protocol. During Lexiscan stress, the patient received 28 mCi of technetium 99m Myoview intravenously. After 30-60 minutes, post stress images were done. Computerized reconstruction image were performed for analysis. The post-stress images revealed uniform distribution of the radiopharmaceutical in the left ventricular myocardium. Cinematic display of the gated study did not reveal any wall motion abnormality. The left ventricular ejection fraction was normal and was calculated to be 73%. The resting images were normal. CONCLUSION: 1. Normal resting and stress myocardial perfusion scan images after the patient underwent Lexiscan stress test. 2. No wall motion abnormality. 3. Normal left ventricular ejection fraction of 73% (hyperdynamic). JOB# [id number] [facility]
[2018-09-19] MEDS: DIANEAL PD-2 W/1.5% DEXTROSE IP SCH ×6 (00:50→23:50)
[2018-09-19] MEDS: MORPHINE IV PRN ×3 (04:42→23:54)
[2018-09-19] MEDS: SODIUM BICARBONATE PO SCH ×2 (09:50→21:45)
[2018-09-19] MEDS: HEPARIN SUB-Q SCH ×2 (10:09→21:45)
[2018-09-19] MEDS: PROTONIX IV SCH (10:10)
[2018-09-19] MEDS: FLEXERIL PO PRN (10:10)
[2018-09-19] MEDS ORDERED: ZOFRAN IV PRN (10:47)
--- NOTE | 2018-09-19 13:28 | Progress Note ---
Assessment and Plan S/p lexiscan MPI stress test yesterday which was negative. Currently stable cardiac status. Pt may discharge from cardiology standpoint. Recommend follow up in our office with Dr. Salguero within 1-2 weeks of hospital discharge ([phone]). The patient has been seen in conjunction with Dr. Salguero who agrees with the assessment and plan of care. - Patient Problems (1) Chest pain Current Visit: Yes Status: Resolved (2) Hypotension Current Visit: Yes Status: Acute (3) ESRD (end stage renal disease) Current Visit: Yes Status: Acute (4) Anemia Current Visit: Yes Status: Chronic Qualifiers: Other causes of anemia: chronic disease, kidney (5) Hyperlipidemia Current Visit: Yes Status: Chronic (6) Elevated troponin Current Visit: Yes Status: Acute Subjective Date of service: 09/19/18 Principal diagnosis: cp; hypotension Interval history: pt sleeping comfortably, with no current cardiac complaints. Objective Last Vital Signs Temp 98.6 F 09/19/18 08:30 Pulse 82 09/19/18 08:30 Resp 16 09/19/18 08:30 BP 106/74 09/19/18 08:30 Pulse Ox 97 09/19/18 08:30 - Physical Examination General: No Apparent Distress HEENT: Positive: PERRL, Normocephaly, Mucus Membranes Moist Neck: Positive: neck supple Cardiac: Positive: Reg Rate and Rhythm, S1/S2 Lungs: Positive: clear to auscultation Neuro: Positive: Grossly Intact Abdomen: Positive: Soft. Negative: Tender Skin: Negative: Rash, Wound Musculoskeletal: No Pain Extremities: Absent: edema - Imaging and Cardiology EKG: report reviewed, image reviewed Echo: report reviewed (EF 60-65%, RV mildly dilated, mod MR. ) - EKG Sinus rhythms and dysrhythmias: sinus rhythm
[2018-09-19] MEDS ORDERED: CATHFLO HEMOD-PORT ONE (14:00)
--- NOTE | 2018-09-19 14:19 | Progress Note ---
Assessment and Plan Severe sepsis with shock. End-stage renal disease, on peritoneal dialysis. History of hypertension. History of venous thromboembolic phenomenon. Gastroesophageal reflux disease. Chest pain NSTEMI History of migraine headaches. History of pancreatitis. Anemia that is normocytic, likely of chronic disease. Elevated D-dimer. Mild hypokalemia. Mild metabolic acidosis. Elevated serum troponins - shock resolved - suplemental oxygen as needed to keep O2 sat's > 90% - PD for toxin and volume management - cultures NGTD and will begin de-escalation and stop cefipime and vancomycin but begin oral levaquin - continue GI & VTE prophylaxis - PT/OT and increase ambulation - continue other care per attending / other consultants .... re-evaluate in am & prn Subjective Date of service: 09/19/18 Principal diagnosis: Severe sepsis with shock; ESRD on PD; HTN; H/O VTE; GERD; NSTEMI. Interval history: Patient is seen today for: Severe sepsis with shock; End-stage renal disease, on peritoneal dialysis; H/O hypertension; History of venous thromboembolic phenomenon; Gastroesophageal reflux disease; Chest pain; NSTEMI; History of migraine headaches. Seen and examined at bedside; 24hour events reviewed; nursing and respiratory care staff consulted; no adverse overnight events reported to me; sitting peacefully in chair; about to begin dialysis (PD); feels better overall; denies acute chest pains or palpitations but + some CONTEH; No N/V/F/C Objective Vital Signs - 12hr 09/19/18 09/19/18 09/19/18 04:26 04:42 08:30 Temperature 98.6 F 98.6 F Pulse Rate 74 82 Respiratory 12 18 16 Rate Blood Pressure 87/51 106/74 O2 Sat by Pulse 95 97 Oximetry 09/19/18 12:54 Temperature 98.0 F Pulse Rate 72 Respiratory 16 Rate Blood Pressure 105/65 O2 Sat by Pulse 96 Oximetry Constitutional: no acute distress, alert, other (middle aged AAF, normocephalic and atraumatic) Eyes: non-icteric ENT: oropharynx moist Neck: supple, no lymphadenopathy, no JVD Effort: mildly labored Ascultation: Bilateral: diminished breath sounds, rhonchi (scant inspiratory in bases posteriorly) Percussion: Bilateral: not dull Cardiovascular: regular rate and rhythm Gastrointestinal: normoactive bowel sounds, soft, non-tender, non-distended, other (PD catheter) Integumentary: normal Extremities: no cyanosis, no edema, pulses normal, no ischemia or petechiae Neurologic: normal mental status, non-focal exam, pupils equal and round, motor strength normal and Psychiatric: mood appropriate, affect normal CBC and BMP: 09/20/18 05:47 09/20/18 05:47 ABG, PT/INR, D-dimer: PT/INR, D-dimer PT 12.6 Sec. (12.2-14.9) 09/16/18 06:44 INR 0.90 (0.87-1.13) 09/16/18 06:44 D-Dimer 301.01 ng/mlDDU (0-234) H 09/16/18 06:44 Abnormal lab findings: Abnormal Labs 09/16/18 09/16/18 09/16/18 03:29 03:29 06:03 WBC RBC 3.20 L Hgb 9.2 L Hct 28.3 L Lymph % (Auto) 8.8 L Orange % (Auto) 10.8 H Lymph # 0.8 L Orange # 1.0 H Seg Neutrophils % 78.3 H Seg Neutrophils # D-Dimer Sodium Potassium 3.3 L Chloride 95.0 L Carbon Dioxide 20 L BUN 81 H Creatinine 16.4 H Glucose 127 H Calcium 7.5 L Troponin T 0.100 H 0.082 H C-Reactive Protein NT-Pro-B Natriuret Pep Cholesterol 226 H LDL Cholesterol Direct 150 H HDL Cholesterol 89 H 09/16/18 09/16/18 09/16/18 06:44 06:44 09:31 WBC RBC Hgb Hct Lymph % (Auto) Orange % (Auto) Lymph # Orange # Seg Neutrophils % Seg Neutrophils # D-Dimer 301.01 H Sodium Potassium Chloride Carbon Dioxide BUN Creatinine Glucose Calcium Troponin T 0.065 H D C-Reactive Protein NT-Pro-B Natriuret Pep 4189 H Cholesterol LDL Cholesterol Direct HDL Cholesterol 09/16/18 09/17/18 09/17/18 14:29 04:10 04:10 WBC 12.4 H RBC 3.56 L Hgb Hct Lymph % (Auto) 12.2 L Orange % (Auto) 12.6 H Lymph # Orange # 1.6 H Seg Neutrophils % 74.7 H Seg Neutrophils # 9.2 H D-Dimer Sodium 135 L Potassium Chloride Carbon Dioxide 15 L BUN 85 H Creatinine 17.1 H Glucose 107 H Calcium 7.0 L Troponin T C-Reactive Protein 1.70 H NT-Pro-B Natriuret Pep Cholesterol LDL Cholesterol Direct HDL Cholesterol 09/18/18 09/18/18 07:29 07:29 WBC RBC 3.04 L Hgb 8.6 L Hct 26.7 L Lymph % (Auto) Orange % (Auto) 12.3 H Lymph # Orange # Seg Neutrophils % Seg Neutrophils # D-Dimer Sodium Potassium Chloride Carbon Dioxide 16 L BUN 76 H Creatinine 16.0 H Glucose Calcium 6.7 L Troponin T C-Reactive Protein NT-Pro-B Natriuret Pep Cholesterol LDL Cholesterol Direct HDL Cholesterol Chest x-ray: image reviewed Allied health notes reviewed: nursing
[2018-09-19] MEDS: MAXIPIME 0.5 GM in NACL 0.9% 100 ML IV SCH (14:35)
--- NOTE | 2018-09-19 15:10 | Progress Note ---
Assessment and Plan - Patient Problems (1) ESRD (end stage renal disease) Current Visit: Yes Status: Acute Plan to address problem: cathflo instillation performed today for PD cath malfunction, with 6mg cathflo in 10cc NS with dwell time 0.5-1hr; resume CAPD w/ dineal 1.5% x 4 cycles/day thereafter. (2) Chest pain Current Visit: Yes Status: Resolved Plan to address problem: follow cardiology recommendations. to complete Yesenia scan this AM (3) Shock Current Visit: Yes Status: Acute Plan to address problem: hypovolemic vs septic shock. no evidence of PE on CT angio, ECHO showed normal LVSF without evidence of pericardial effusion. BP now stabilized, pt remains off levophed. (4) Metabolic acidosis Current Visit: Yes Status: Acute Plan to address problem: cont na bicarb 1300mg bid; cont PD (5) Anemia in end-stage renal disease Current Visit: No Status: Chronic Plan to address problem: cont EPO [id number] q week Subjective Date of service: 09/19/18 Principal diagnosis: cp; hypotension Interval history: Patient with stable BP, off levophed. alteplase was ordered for PD cath malfunction yesterday, however it was not administered. Objective - Vital Signs Vital signs: Vital Signs - 12hr 09/19/18 09/19/18 09/19/18 04:26 04:42 08:30 Temperature 98.6 F 98.6 F Pulse Rate 74 82 Respiratory 12 18 16 Rate Blood Pressure 87/51 106/74 O2 Sat by Pulse 95 97 Oximetry 09/19/18 12:54 Temperature 98.0 F Pulse Rate 72 Respiratory 16 Rate Blood Pressure 105/65 O2 Sat by Pulse 96 Oximetry - General Appearance General appearance: well-developed, well-nourished, appears stated age EENT: ATNC, PERRL, mucous membranes moist Neck: no JVD Respiratory: Present: Clear to Ascultation Cardiology: regular, S1S2 Gastrointestinal: normoactive bowel sounds Integumentary: no rash, other (no edema ) Neurologic: no focal deficit, alert and oriented x3, strength 5/5, CN 3-12 intact Psychiatric: mood/affect appropriate, cooperative - Lab 09/18/18 07:29 09/18/18 07:29 Most recent lab results Calcium 6.7 mg/dL (8.4-10.2) L 09/18/18 07:29 Medications & Allergies - Medications Allergies/Adverse Reactions: Allergies chlorhexidine Allergy (Verified 06/20/16 08:45) Itching hydralazine Allergy (Verified 06/06/16 14:28) Unknown shellfish derived Allergy (Verified 10/01/14 09:46) Swelling itching iodine Adverse Reaction (Verified 10/06/14 06:31) Swelling shortness of breath Home Medications: Home Medications Medication Instructions Recorded Confirmed Last Taken Type Ergocalciferol (Vitamin D2) 50,000 unit PO QWEEK 09/16/18 09/16/18 Unknown History [Drisdol] Hydrocortisone [Anucort-HC SUPPOS] 25 mg RC BID 09/16/18 09/16/18 Unknown History Ondansetron [Zofran TAB] 4 mg PO Q8HR PRN 09/16/18 09/16/18 Unknown History Zolpidem [Ambien] 10 mg PO QHS 09/16/18 09/16/18 Unknown History Active Medications: Generic Name Dose Route Start Last Admin Trade Name Freq PRN Reason Stop Dose Admin Atorvastatin Calcium 20 mg 09/16/18 22:00 09/18/18 21:56 Lipitor PO 20 mg QHS DIMITRI Administration Cyclobenzaprine HCl 5 mg 09/17/18 11:40 09/19/18 10:10 Flexeril PO 5 mg BID PRN Administration Muscle Spasm Epoetin Per 20,000 unit 09/18/18 10:00 09/18/18 17:56 Procrit SUB-Q 09/25/18 12:00 20,000 unit We DIMITRI Administration Heparin Sodium (Porcine) 5,000 unit 09/16/18 22:00 09/19/18 10:09 Heparin SUB-Q 5,000 unit Q12HR DIMITRI Administration Cefepime HCl 0.5 gm/ Sodium 100 mls @ 200 mls/hr 09/16/18 14:00 09/18/18 17:37 Chloride IV 09/20/18 14:29 Not Given Q24H DIMITRI Morphine Sulfate 2 mg 09/16/18 14:13 09/19/18 09:46 Morphine IV 2 mg Q4H PRN Administration Pain, Moderate (4-6) Ondansetron HCl 4 mg 09/19/18 10:47 02/07/19 11:01 Zofran IV 4 mg Q4H PRN Administration Nausea And Vomiting Pantoprazole Sodium 40 mg 09/18/18 18:00 09/19/18 10:10 Protonix IV 40 mg QDAY DIMITRI Administration Peritoneal Dialysis Solution 2,000 ml 09/17/18 12:00 09/19/18 06:50 Dianeal Pd-2 W/1.5% Dextrose IP Not Given Q6HR DIMITRI Sodium Bicarbonate 1,300 mg 09/17/18 10:00 09/19/18 09:50 Sodium Bicarbonate PO 1,300 mg BID DIMITRI Administration
--- NOTE | 2018-09-19 15:33 | Progress Note ---
Assessment and Plan Assessment and plan: 58-year-old -[place] female with past medical history significant for end-stage renal disease on PD, gastroparesis, anxiety, hypertension presented to the emergency department with complaints of chest pain that started yesterday around lunchtime. Midsternal constant chest pain, 10 out of 10 intensity, sharp, with radiation to the back, associated shortness of breath, no other aggravating or aggravating factors identified. Patient is complaining dizziness but didn't passed out. In the emergency department patient was hypotensive and was given IV fluids with significant improvement, central line was placed and was placed on norepinephrine. vasogenic shock.-Resolved Per patient baseline systolic BP is around 99 - Patient is empirically on IV cefepime and vancomycin - IV fluids, on pressor - Critical care consulted Abdominal Pain- Acute Gastritis- NOTED ON CT ABDOMEN -PPI -Pain control -Still with awaiting altaplese for declotting the PD catheter Diverticulosis -Dietary advise provided. NSTEMI - In the setting of ESRD - Cardiology consulted, input noted, - Echo normal ESRD on PD - Nephrology consulted Anemia of chronic disease -Monitor DVT prophylaxis - On heparin Disposition -Anticipate discharge in am. History Interval history: Patient seen and examined today in no acute distress resting comfortably. Reports improvement in chest pain with the muscle relaxant. Complained of abdominal pain today. Dialysis was not completed this am, due clogged PD catheter. Abdominal pain 5/10 in intensity Hospitalist Physical - Physical exam Narrative exam: VITAL SIGNS: Reviewed. GENERAL: The patient appeared well nourished and normally developed. Vital signs as documented. HEAD: No signs of head trauma. EYES: Pupils are equal. Extraocular motions intact. EARS: Hearing grossly intact. MOUTH: Oropharynx is normal. NECK: No adenopathy, no JVD. CHEST: Chest with clear breath sounds bilaterally. No wheezes, rales, or rhonchi. CARDIAC: Regular rate and rhythm. S1 and S2, without murmurs, gallops, or rubs. VASCULAR: No Edema. Peripheral pulses normal and equal in all extremities. ABDOMEN: Soft, mildly tender. Positive fluid shift. No sign of distention. No rebound or guarding, and no masses palpated. Bowel Sounds normal. MUSCULOSKELETAL: Good range of motion of all major joints. Extremities without clubbing, cyanosis or edema. NEUROLOGIC EXAM: Alert and oriented x 3. No focal sensory or strength deficits. Speech normal. Follows commands. PSYCHIATRIC: Mood normal. SKIN: No rash or lesions. - Constitutional Vitals: Temp Pulse Resp BP Pulse Ox 98.0 F 72 16 105/65 96 09/19/18 12:54 09/19/18 12:54 09/19/18 12:54 09/19/18 12:54 09/19/18 12:54 General appearance: Present: no acute distress Results - Labs CBC & Chem 7: 09/18/18 07:29 09/18/18 07:29 Labs: Laboratory Last Values WBC 6.2 K/mm3 (4.5-11.0) 09/18/18 07:29 RBC 3.04 M/mm3 (3.65-5.03) L 09/18/18 07:29 Hgb 8.6 gm/dl (10.1-14.3) L 09/18/18 07:29 Hct 26.7 % (30.3-42.9) L 09/18/18 07:29 MCV 88 fl (79-97) 09/18/18 07:29 MCH 28 pg (28-32) 09/18/18 07:29 MCHC 32 % (30-34) 09/18/18 07:29 RDW 15.0 % (13.2-15.2) 09/18/18 07:29 Plt Count 262 K/mm3 (140-440) 09/18/18 07:29 Lymph % (Auto) 20.3 % (13.4-35.0) 09/18/18 07:29 Republic % (Auto) 12.3 % (0.0-7.3) H 09/18/18 07:29 Eos % (Auto) 2.8 % (0.0-4.3) 09/18/18 07:29 Baso % (Auto) 0.8 % (0.0-1.8) 09/18/18 07:29 Lymph # 1.2 K/mm3 (1.2-5.4) 09/18/18 07:29 Republic # 0.8 K/mm3 (0.0-0.8) 09/18/18 07:29 Eos # 0.2 K/mm3 (0.0-0.4) 09/18/18 07:29 Baso # 0.0 K/mm3 (0.0-0.1) 09/18/18 07:29 Seg Neutrophils % 63.8 % (40.0-70.0) 09/18/18 07:29 Seg Neutrophils # 3.9 K/mm3 (1.8-7.7) 09/18/18 07:29 PT 12.6 Sec. (12.2-14.9) 09/16/18 06:44 INR 0.90 (0.87-1.13) 09/16/18 06:44 D-Dimer 301.01 ng/mlDDU (0-234) H 09/16/18 06:44 Sodium 137 mmol/L (137-145) 09/18/18 07:29 Potassium 4.0 mmol/L (3.6-5.0) 09/18/18 07:29 Chloride 100.0 mmol/L (98-107) 09/18/18 07:29 Carbon Dioxide 16 mmol/L (22-30) L 09/18/18 07:29 Anion Gap 25 mmol/L 09/18/18 07:29 BUN 76 mg/dL (7-17) H 09/18/18 07:29 Creatinine 16.0 mg/dL (0.7-1.2) H 09/18/18 07:29 Estimated GFR 3 ml/min 09/18/18 07:29 BUN/Creatinine Ratio 5 % 09/18/18 07:29 Glucose 90 mg/dL (65-100) 09/18/18 07:29 Lactic Acid 1.50 mmol/L (0.7-2.0) 09/16/18 14:29 Calcium 6.7 mg/dL (8.4-10.2) L 09/18/18 07:29 Troponin T 0.065 ng/mL (0.00-0.029) H D 09/16/18 09:31 C-Reactive Protein 1.70 mg/dL (0.00-1.30) H 09/16/18 14:29 NT-Pro-B Natriuret Pep 4189 pg/mL (0-900) H 09/16/18 06:44 Triglycerides 68 mg/dL (2-149) 09/16/18 03:29 Cholesterol 226 mg/dL (50-199) H 09/16/18 03:29 LDL Cholesterol Direct 150 mg/dL (50-130) H 09/16/18 03:29 HDL Cholesterol 89 mg/dL (40-59) H 09/16/18 03:29 Cholesterol/HDL Ratio 2.53 % 09/16/18 03:29 Random Vancomycin 13.3 ug/mL (0-40.0) 09/18/18 04:42
[2018-09-19] MEDS ORDERED: DULCOLAX PO PRN (15:57)
[2018-09-20 06:23] LABS: Hematocrit 23.9 % (30.3-42.9); Hemoglobin 7.8 gm/dl (10.1-14.3); Mean Corpuscular HGB Conc 32 % (30-34); Mean Corpuscular Volume 87 fl (79-97); Platelet Count 250 K/mm3 (140-440); Red Blood Count 2.73 M/mm3 (3.65-5.03); Red Cell Distribution Width 15.1 % (13.2-15.2)
[2018-09-20 06:42] LABS: Calcium 6.7 mg/dL (8.4-10.2)
[2018-09-20] MEDS: SODIUM BICARBONATE PO SCH (09:56)
[2018-09-20] MEDS: PROTONIX IV SCH (09:56)
[2018-09-20] MEDS: HEPARIN SUB-Q SCH ×2 (10:03→10:04)
[2018-09-20] MEDS: FLEXERIL PO PRN (11:01)
--- NOTE | 2018-09-20 11:17 | Progress Note ---
Assessment and Plan - Patient Problems (1) ESRD (end stage renal disease) Current Visit: Yes Status: Acute Plan to address problem: PD cath functioning well s/p cathflo treatment, resumed CAPD w/ dineal 1.5% x 4 cycles/day. instructed to use 1.5% dineal solution at home given episode of low BP. also instructed to hold minoxidil/lisinopril for now. Stable for discharge otherwise from renal stand point . (2) Chest pain Current Visit: Yes Status: Resolved Plan to address problem: lexiscan MPI stress test was negative. follow cardiology recommendations. (3) Shock Current Visit: Yes Status: Acute Plan to address problem: hypovolemic vs septic shock. no evidence of PE on CT angio, ECHO showed normal LVSF without evidence of pericardial effusion. BP now stabilized, pt remains off levophed. (4) Metabolic acidosis Current Visit: Yes Status: Acute Plan to address problem: cont na bicarb 1300mg bid; cont PD (5) Anemia in end-stage renal disease Current Visit: No Status: Chronic Plan to address problem: cont EPO [id number] q week Subjective Date of service: 09/20/18 Principal diagnosis: cp; hypotension Interval history: Patient with stable BP, off levophed. PD cath is functioning well after treatment with alteplase. Objective - Vital Signs Vital signs: Vital Signs - 12hr 09/20/18 09/20/18 09/20/18 07:00 07:41 07:42 Temperature 98.5 F 98.5 F Pulse Rate 85 79 77 Respiratory 18 18 Rate Blood Pressure 100/78 [Right] O2 Sat by Pulse 99 99 Oximetry - General Appearance General appearance: well-developed, well-nourished, appears stated age EENT: ATNC, PERRL, mucous membranes moist Neck: no JVD Respiratory: Present: Clear to Ascultation Cardiology: regular, S1S2 Gastrointestinal: normoactive bowel sounds Integumentary: no rash, other (no edema ) Neurologic: no focal deficit, alert and oriented x3, strength 5/5, CN 3-12 intact Psychiatric: mood/affect appropriate, cooperative - Lab 09/20/18 05:47 09/20/18 05:47 Most recent lab results Calcium 6.7 mg/dL (8.4-10.2) L 09/20/18 05:47 Medications & Allergies - Medications Allergies/Adverse Reactions: Allergies chlorhexidine Allergy (Verified 06/20/16 08:45) Itching hydralazine Allergy (Verified 06/06/16 14:28) Unknown shellfish derived Allergy (Verified 10/01/14 09:46) Swelling itching iodine Adverse Reaction (Verified 10/06/14 06:31) Swelling shortness of breath Home Medications: Home Medications Medication Instructions Recorded Confirmed Last Taken Type Ergocalciferol (Vitamin D2) 50,000 unit PO QWEEK 09/16/18 09/16/18 Unknown History [Drisdol] Hydrocortisone [Anucort-HC SUPPOS] 25 mg RC BID 09/16/18 09/16/18 Unknown History Ondansetron [Zofran TAB] 4 mg PO Q8HR PRN 09/16/18 09/16/18 Unknown History Zolpidem [Ambien] 10 mg PO QHS 09/16/18 09/16/18 Unknown History Active Medications: Generic Name Dose Route Start Last Admin Trade Name Freq PRN Reason Stop Dose Admin Atorvastatin Calcium 20 mg 09/16/18 22:00 09/19/18 21:45 Lipitor PO 20 mg QHS DIMITRI Administration Bisacodyl 10 mg 09/19/18 15:57 09/19/18 20:16 Dulcolax PO 10 mg QDAY PRN Administration Constipation Cyclobenzaprine HCl 5 mg 09/17/18 11:40 09/20/18 11:01 Flexeril PO 5 mg BID PRN Administration Muscle Spasm Epoetin Per 20,000 unit 09/18/18 10:00 09/18/18 17:56 Procrit SUB-Q 09/25/18 12:00 20,000 unit We DIMITRI Administration Heparin Sodium (Porcine) 5,000 unit 09/16/18 22:00 09/20/18 10:04 Heparin SUB-Q Not Given Q12HR DIMITRI Cefepime HCl 0.5 gm/ Sodium 100 mls @ 200 mls/hr 09/16/18 14:00 09/19/18 14:35 Chloride IV 09/20/18 14:29 Not Given Q24H [facility] Morphine Sulfate 2 mg 09/16/18 14:13 09/19/18 23:54 Morphine IV 2 mg Q4H PRN Administration Pain, Moderate (4-6) Ondansetron HCl 4 mg 09/19/18 10:47 09/19/18 11:01 Zofran IV 4 mg Q4H PRN Administration Nausea And Vomiting Pantoprazole Sodium 40 mg 09/18/18 18:00 09/20/18 09:56 Protonix IV 40 mg QDAY DIMITRI Administration Peritoneal Dialysis Solution 2,000 ml 09/17/18 12:00 09/19/18 23:50 Dianeal Pd-2 W/1.5% Dextrose IP 2,000 ml Q6HR DIMITRI Administration Sodium Bicarbonate 1,300 mg 09/17/18 10:00 09/20/18 09:56 Sodium Bicarbonate PO 1,300 mg BID DIMITRI Administration
--- NOTE | 2018-09-20 11:29 | Discharge Summary ---
Providers - Providers Date of Admission: 09/16/18 11:41 Attending physician: MAIN BRADY MD 09/16/18 06:19 Consult to Physician [CONS] Urgent Comment: Dr. Alba notified @ 07:18- [facility] Consulting Provider: LAVON ALBA Physician Instructions: Reason For Exam: esrd c[ 09/16/18 07:00 Consult to Physician [CONS] Urgent Comment: Dr. Echevarria notified @ 0705- [facility] Consulting Provider: PALOMO FLORES Physician Instructions: Reason For Exam: cp hypotension 09/16/18 08:06 PICC Line Insertion [Consult to PICC Line RN] [CONS] Stat Reason For Exam: hypotension Type Line:: Midline 09/16/18 08:40 Consult to Physician [CONS] Urgent Comment: Dr. Bravo notified @ 08:40- [facility] Consulting Provider: ALEE BRAVO Physician Instructions: Reason For Exam: shock Primary care physician: JANICE GONZALEZ Hospitalization Reason for admission: shock Condition: Stable Hospital course: 58-year-old -[place] female with past medical history significant for end-stage renal disease on PD, gastroparesis, anxiety, hypertension presented to the emergency department with complaints of chest pain that started yesterday around lunchtime. Midsternal constant chest pain, 10 out of 10 intensity, sharp, with radiation to the back, associated shortness of breath, no other aggravating or aggravating factors identified. Patient is complaining dizziness but didn't passed out. In the emergency department patient was hypotensive and was given IV fluids with significant improvement, central line was placed and was placed on norepinephrine. Patient was given multiple pressors and as outline below has chronically low BP. she was also treaed for acute gastritis, based on clinical and imaging findings although she later informed us that she has chronic abdominal pain dating back to prior to dialysis and she feels its the same pain that flared up. CARDIOLOGY EVALUATED HER FOR NSTEMI type 2 with no recommendation for invasive managment. she was subseqently discharged and nephrology discontinued ACEI and minoxidil for now and will re-evaluate outpatient vasogenic shock.-Resolved SEPSIS RULED OUT Abdominal Pain- Acute Gastritis- NOTED ON CT ABDOMEN Diverticulosis NSTEMI-- In the setting of ESRD ESRD on PD Anemia of chronic disease Disposition: TO HOME OR SELFCARE Time spent for discharge: 35 mins Core Measure Documentation - Palliative Care Palliative Care/ Comfort Measures: Not Applicable - Core Measures Any of the following diagnoses?: none Exam - Physical Exam Narrative exam: VITAL SIGNS: Reviewed. GENERAL: The patient appeared well nourished and normally developed. Vital signs as documented. HEAD: No signs of head trauma. EYES: Pupils are equal. Extraocular motions intact. EARS: Hearing grossly intact. MOUTH: Oropharynx is normal. NECK: No adenopathy, no JVD. CHEST: Chest with clear breath sounds bilaterally. No wheezes, rales, or rhonchi. CARDIAC: Regular rate and rhythm. S1 and S2, without murmurs, gallops, or rubs. VASCULAR: No Edema. Peripheral pulses normal and equal in all extremities. ABDOMEN: Soft, mildly tender. Positive fluid shift. No sign of distention. No rebound or guarding, and no masses palpated. Bowel Sounds normal. MUSCULOSKELETAL: Good range of motion of all major joints. Extremities without clubbing, cyanosis or edema. NEUROLOGIC EXAM: Alert and oriented x 3. No focal sensory or strength deficits. Speech normal. Follows commands. PSYCHIATRIC: Mood normal. SKIN: No rash or lesions. - Constitutional Vitals: Temp Pulse Resp BP Pulse Ox 98.5 F 77 18 100/78 99 09/20/18 07:41 09/20/18 07:42 09/20/18 07:41 09/20/18 07:00 09/20/18 07:42 Plan Activity: advance as tolerated, fall precautions Diet: diabetic, renal Special Instructions: record daily BP diary, record blood sugar diary, smoking cessation Follow up with: JANICE GONZALEZ [Primary Care Provider] - 3-5 Days LAVON ALBA MD [Staff Physician] - 7 Days Prescriptions: AtorvaSTATin [Lipitor] 20 mg PO QHS #20 tablet Bisacodyl [Dulcolax tab] 10 mg PO QDAY PRN #30 tablet PRN Reason: Constipation Cyclobenzaprine [Flexeril 10 MG TAB] 5 mg PO BID PRN #20 tablet PRN Reason: Muscle Spasm Pantoprazole [Protonix TAB] 40 mg PO DAILY #30 tablet Sodium Bicarbonate 1,300 mg PO BID #60 tablet
[2018-09-20 12:55] VITALS: BP 102/67
--- NOTE | 2018-09-20 13:54 | Progress Note ---
Assessment and Plan Severe sepsis with shock. End-stage renal disease, on peritoneal dialysis. History of hypertension. History of venous thromboembolic phenomenon. Gastroesophageal reflux disease. Chest pain NSTEMI History of migraine headaches. History of pancreatitis. Anemia that is normocytic, likely of chronic disease. Elevated D-dimer. Mild hypokalemia. Mild metabolic acidosis. Elevated serum troponins - shock resolved - suplemental oxygen as needed to keep O2 sat's > 90% - PD for toxin and volume management - cultures NGTD and will begin de-escalation and stop cefipime and vancomycin but begin oral levaquin - continue GI & VTE prophylaxis - PT/OT and increase ambulation - continue other care per attending / other consultants .... re-evaluate in am & prn Subjective Date of service: 09/20/18 Principal diagnosis: Severe sepsis with shock; ESRD on PD; HTN; H/O VTE; GERD; NSTEMI. Interval history: Patient is seen today for: Severe sepsis with shock; End-stage renal disease, on peritoneal dialysis; H/O hypertension; History of venous thromboembolic phenomenon; Gastroesophageal reflux disease; Chest pain; NSTEMI; History of migraine headaches. Seen and examined at bedside; 24hour events reviewed; nursing and respiratory care staff consulted; no adverse overnight events reported to me; sitting peacefully in chair; feels better; No N/V/F/C Objective Vital Signs - 12hr 09/20/18 09/20/18 09/20/18 07:00 07:41 07:42 Temperature 98.5 F 98.5 F Pulse Rate 85 79 77 Respiratory 18 18 Rate Blood Pressure 100/78 [Right] O2 Sat by Pulse 99 99 Oximetry 09/20/18 09/20/18 11:00 12:53 Temperature 97.6 F Pulse Rate 68 78 Respiratory Rate Blood Pressure 102/67 [Right] O2 Sat by Pulse 100 Oximetry Constitutional: no acute distress, alert, other (middle aged AAF, normocephalic and atraumatic) Eyes: non-icteric ENT: oropharynx moist Neck: supple, no lymphadenopathy, no JVD Effort: mildly labored Ascultation: Bilateral: diminished breath sounds, rhonchi (scant inspiratory in bases posteriorly) Percussion: Bilateral: not dull Cardiovascular: regular rate and rhythm Gastrointestinal: normoactive bowel sounds, soft, non-tender, non-distended, other (PD catheter) Integumentary: normal Extremities: no cyanosis, no edema, pulses normal, no ischemia or petechiae Neurologic: normal mental status, non-focal exam, pupils equal and round, motor strength normal and Psychiatric: mood appropriate, affect normal CBC and BMP: 09/20/18 05:47 09/20/18 05:47 ABG, PT/INR, D-dimer: PT/INR, D-dimer PT 12.6 Sec. (12.2-14.9) 09/16/18 06:44 INR 0.90 (0.87-1.13) 09/16/18 06:44 D-Dimer 301.01 ng/mlDDU (0-234) H 09/16/18 06:44 Abnormal lab findings: Abnormal Labs 09/16/18 09/16/18 09/16/18 03:29 03:29 06:03 WBC RBC 3.20 L Hgb 9.2 L Hct 28.3 L Lymph % (Auto) 8.8 L [place] % (Auto) 10.8 H Lymph # 0.8 L [place] # 1.0 H Seg Neutrophils % 78.3 H Seg Neutrophils # D-Dimer Sodium Potassium 3.3 L Chloride 95.0 L Carbon Dioxide 20 L BUN 81 H Creatinine 16.4 H Glucose 127 H Calcium 7.5 L Troponin T 0.100 H 0.082 H C-Reactive Protein NT-Pro-B Natriuret Pep Cholesterol 226 H LDL Cholesterol Direct 150 H HDL Cholesterol 89 H 09/16/18 09/16/18 09/16/18 06:44 06:44 09:31 WBC RBC Hgb Hct Lymph % (Auto) [place] % (Auto) Lymph # [place] # Seg Neutrophils % Seg Neutrophils # D-Dimer 301.01 H Sodium Potassium Chloride Carbon Dioxide BUN Creatinine Glucose Calcium Troponin T 0.065 H D C-Reactive Protein NT-Pro-B Natriuret Pep 4189 H Cholesterol LDL Cholesterol Direct HDL Cholesterol 09/16/18 09/17/18 09/17/18 14:29 04:10 04:10 WBC 12.4 H RBC 3.56 L Hgb Hct Lymph % (Auto) 12.2 L [place] % (Auto) 12.6 H Lymph # [place] # 1.6 H Seg Neutrophils % 74.7 H Seg Neutrophils # 9.2 H D-Dimer Sodium 135 L Potassium Chloride Carbon Dioxide 15 L BUN 85 H Creatinine 17.1 H Glucose 107 H Calcium 7.0 L Troponin T C-Reactive Protein 1.70 H NT-Pro-B Natriuret Pep Cholesterol LDL Cholesterol Direct HDL Cholesterol 09/18/18 09/18/18 09/20/18 07:29 07:29 05:47 WBC RBC 3.04 L 2.73 L Hgb 8.6 L 7.8 L Hct 26.7 L 23.9 L Lymph % (Auto) [place] % (Auto) 12.3 H Lymph # [place] # Seg Neutrophils % Seg Neutrophils # D-Dimer Sodium Potassium Chloride Carbon Dioxide 16 L BUN 76 H Creatinine 16.0 H Glucose Calcium 6.7 L Troponin T C-Reactive Protein NT-Pro-B Natriuret Pep Cholesterol LDL Cholesterol Direct HDL Cholesterol 09/20/18 05:47 WBC RBC Hgb Hct Lymph % (Auto) [place] % (Auto) Lymph # [place] # Seg Neutrophils % Seg Neutrophils # D-Dimer Sodium 135 L Potassium Chloride 97.2 L Carbon Dioxide 18 L BUN 80 H Creatinine 16.4 H Glucose Calcium 6.7 L Troponin T C-Reactive Protein NT-Pro-B Natriuret Pep Cholesterol LDL Cholesterol Direct HDL Cholesterol Allied health notes reviewed: nursing
[2018-09-20] MEDS: DIANEAL PD-2 W/1.5% DEXTROSE IP SCH (15:43)
[2018-09-21] MEDS ORDERED: PROTONIX PO SCH (10:00)
== END 2018-09-20 15:20 | disposition home or self-care (01) | DRG 280 ==
LOC: ED 02:58 → 3A 11:41 → CC1 12:36 → 4A 09-18 11:08
PROVIDERS: ADMIT Internal Medicine; ATTEND Internal Medicine
PROC: 06HN33Z Insertion of Infusion Device into Left Femoral Vein, Percutaneous Approach (ICD-10-PCS; principal; 2018-09-16)
PROC: B54CZZA Ultrasonography of Left Lower Extremity Veins, Guidance (ICD-10-PCS; 2018-09-16)
PROC: 05JY3ZZ Inspection of Upper Vein, Percutaneous Approach (ICD-10-PCS; 2018-09-16)
PROC: 3E1M39Z Irrigation of Peritoneal Cavity using Dialysate, Percutaneous Approach (ICD-10-PCS; 2018-09-16)
DX: I21.4 Non-ST elevation (NSTEMI) myocardial infarction (principal); N18.6 End stage renal disease; R57.1 Hypovolemic shock; I12.0 Hypertensive chronic kidney disease with stage 5 chronic kidney disease or end stage renal disease; N25.81 Secondary hyperparathyroidism of renal origin; E87.2 Acidosis; T85.611A Breakdown (mechanical) of intraperitoneal dialysis catheter, initial encounter; F41.9 Anxiety disorder, unspecified; E78.5 Hyperlipidemia, unspecified; K58.9 Irritable bowel syndrome, unspecified; K21.9 Gastro-esophageal reflux disease without esophagitis; D63.1 Anemia in chronic kidney disease; G43.909 Migraine, unspecified, not intractable, without status migrainosus; K57.30 Diverticulosis of large intestine without perforation or abscess without bleeding; E87.6 Hypokalemia; K29.00 Acute gastritis without bleeding; Y83.8 Other surgical procedures as the cause of abnormal reaction of the patient, or of later complication, without mention of misadventure at the time of the procedure; Y92.238 Other place in hospital as the place of occurrence of the external cause; K31.84 Gastroparesis; Z90.710 Acquired absence of both cervix and uterus; Z88.8 Allergy status to other drugs, medicaments and biological substances; Z91.041 Radiographic dye allergy status; Z91.013 Allergy to seafood; Z86.711 Personal history of pulmonary embolism; Z90.49 Acquired absence of other specified parts of digestive tract; Z98.0 Intestinal bypass and anastomosis status; Z95.828 Presence of other vascular implants and grafts; Z87.891 Personal history of nicotine dependence
CPT/HCPCS: 36415; 71046; 71275; 74176; 78452; 80048; 80061; 80202; 82140; 83880; 84484; 85025; 85027; 85379; 85610; 86140; 87040; 93005; 93010; 93017; 93306; 96374; 96375; G0378; A6250; A9270-GY; A9502; C9113; J0692; J0885; J1170; J1200; J1644; J2270; J2405; J2785; J2930; J2997; J3010; J3370; J7030; J7040; J7050; Q9967

== ENCOUNTER 2019-05-11 12:55 | Emergency (ER) | payer MEDICARE ==
--- NOTE | 2019-05-11 13:09 | Event Note ---
ED Screening Note Date of service: 05/11/19 Time: 13:05 ED Screening Note: This is a 58 y.o. F. that presents to the ER with left sided neck and chest swelling. Patient reports swelling to left PMH HTN, ESRD on peritoneal dialysis, and GERD This initial assessment/diagnostic orders/clinical plan/treatment(s) is/are subject to change based on patients health status, clinical progression and re- assessment by fellow clinical providers in the ED. Further treatment and workup at subsequent clinical providers discretion. Patient/guardian urged not to elope from the ED as their condition may be serious if not clinically assessed and managed. Initial orders include: Labs
--- NOTE | 2019-05-11 13:27 | Emergency Department Report ---
ED General Adult HPI - General Chief complaint: Headache Stated complaint: LT SIDE OF NECK SWELLING/PAIN Time Seen by Provider: 05/11/19 13:05 Source: patient Mode of arrival: Ambulatory Limitations: No Limitations - History of Present Illness Initial comments: Patient is 58 years old female with history of end-stage renal disease on peritoneal dialysis. Patient presented to the ER complaining of left neck swelling and left upper chest swelling. Patient stated that she woke up with symptoms today. Patient denied any difficulty breathing or difficulty swallowing. Patient found to have a blood pressure of 206/101. Patient denied any headache, weakness numbness or tingling sensation. No bowel or bladder incontinence. Patient also denied any chest pain or shortness of breath. - Related Data Home Medications Medication Instructions Recorded Confirmed Last Taken Ergocalciferol (Vitamin D2) 50,000 unit PO QWEEK 09/16/18 09/16/18 Unknown [Drisdol] Hydrocortisone [Anucort-HC SUPPOS] 25 mg RC BID 09/16/18 09/16/18 Unknown Ondansetron [Zofran TAB] 4 mg PO Q8HR PRN 09/16/18 09/16/18 Unknown Zolpidem [Ambien] 10 mg PO QHS 09/16/18 09/16/18 Unknown Previous Rx's Medication Instructions Recorded Last Taken Type AtorvaSTATin [Lipitor] 20 mg PO QHS #20 tablet 09/20/18 Unknown Rx Bisacodyl [Dulcolax tab] 10 mg PO QDAY PRN #30 tablet 09/20/18 Unknown Rx Cyclobenzaprine [Flexeril 10 MG 5 mg PO BID PRN #20 tablet 09/20/18 Unknown Rx TAB] Pantoprazole [Protonix TAB] 40 mg PO DAILY #30 tablet 09/20/18 Unknown Rx Sodium Bicarbonate 1,300 mg PO BID #60 tablet 09/20/18 Unknown Rx Allergies Allergy/AdvReac Type Severity Reaction Status Date / Time chlorhexidine Allergy Itching Verified 06/20/16 08:45 hydralazine Allergy Unknown Verified 06/06/16 14:28 shellfish derived Allergy Swelling Verified 10/01/14 09:46 iodine AdvReac Swelling Verified 10/06/14 06:31 ED Review of Systems ROS: Stated complaint: LT SIDE OF NECK SWELLING/PAIN Other details as noted in HPI Comment: All other systems reviewed and negative Constitutional: denies: chills, fever ENT: denies: throat pain Cardiovascular: denies: chest pain, palpitations Gastrointestinal: denies: abdominal pain, nausea, vomiting Neurological: denies: headache, weakness, numbness, paresthesias, confusion ED Past Medical Hx - Past Medical History Previous Medical History?: Yes Hx Hypertension: Yes Hx Heart Attack/AMI: No Hx Congestive Heart Failure: No Hx Diabetes: No Hx Deep Vein Thrombosis: No Hx Pulmonary Embolism: Yes (20 YEARS AGO) Hx GERD: Yes Hx Liver Disease: No Hx Renal Disease: Yes (PD) Hx Sickle Cell Disease: No Hx Arthritis: No Hx Headaches / Migraines: Yes Hx Seizures: No Hx Kidney Stones: No Hx Asthma: No Hx COPD: No Hx Dementia: No Hx HIV: No Additional medical history: Bilateral Subdural Hematoma,Pancreatitis 02/2018, dialysis - Surgical History Past Surgical History?: Yes Hx Coronary Stent: No Hx Pacemaker: No Hx Internal Defibrillator: No Hx Cholecystectomy: Yes Hx Breast Surgery: Yes (BREAST AUGMENTATION BILATERAL ) Additional Surgical History: hysterectomy,gastric bypass, dialysis fistula left arm, Peritoneal Dialysis - Social History Smoking Status: Former Smoker Substance Use Type: Alcohol - Medications Home Medications: Home Medications Medication Instructions Recorded Confirmed Last Taken Type Ergocalciferol (Vitamin D2) 50,000 unit PO QWEEK 09/16/18 09/16/18 Unknown History [Drisdol] Hydrocortisone [Anucort-HC SUPPOS] 25 mg RC BID 09/16/18 09/16/18 Unknown History Ondansetron [Zofran TAB] 4 mg PO Q8HR PRN 09/16/18 09/16/18 Unknown History Zolpidem [Ambien] 10 mg PO QHS 09/16/18 09/16/18 Unknown History AtorvaSTATin [Lipitor] 20 mg PO QHS #20 tablet 09/20/18 Unknown Rx Bisacodyl [Dulcolax tab] 10 mg PO QDAY PRN #30 tablet 09/20/18 Unknown Rx Cyclobenzaprine [Flexeril 10 MG 5 mg PO BID PRN #20 tablet 09/20/18 Unknown Rx TAB] Pantoprazole [Protonix TAB] 40 mg PO DAILY #30 tablet 09/20/18 Unknown Rx Sodium Bicarbonate 1,300 mg PO BID #60 tablet 09/20/18 Unknown Rx ED Physical Exam - General Limitations: No Limitations General appearance: alert, in no apparent distress - Head Head exam: Present: atraumatic, normocephalic, normal inspection - Eye Eye exam: Present: normal appearance, PERRL - ENT ENT exam: Present: normal exam, normal orophraynx, mucous membranes moist - Neck Neck exam: Present: full ROM, other (left neck swelling). Absent: tenderness, meningismus, lymphadenopathy, thyromegaly - Respiratory Respiratory exam: Present: normal lung sounds bilaterally - Cardiovascular Cardiovascular Exam: Present: regular rate, normal rhythm, normal heart sounds - GI/Abdominal GI/Abdominal exam: Present: soft, normal bowel sounds. Absent: distended, tenderness, guarding, rebound, rigid, organomegaly, mass, bruit, pulsatile mass, hernia - Extremities Exam Extremities exam: Present: normal inspection, full ROM, normal capillary refill. Absent: pedal edema, calf tenderness - Back Exam Back exam: Present: normal inspection, full ROM. Absent: CVA tenderness (R), CVA tenderness (L), muscle spasm - Neurological Exam Neurological exam: Present: alert, oriented X3, CN II-XII intact, normal gait, reflexes normal - Psychiatric Psychiatric exam: Present: normal mood - Skin Skin exam: Present: warm, intact, normal color ED Course Vital Signs 05/11/19 05/11/19 05/11/19 13:05 14:10 15:55 Temperature 98.2 F Pulse Rate 88 82 Respiratory 18 18 Rate Blood Pressure 206/101 Blood Pressure 155/91 150/89 [Right] O2 Sat by Pulse 98 Oximetry 05/11/19 18:58 Temperature Pulse Rate 92 H Respiratory 17 Rate Blood Pressure Blood Pressure 137/84 [Right] O2 Sat by Pulse 98 Oximetry ED Medical Decision Making - Lab Data Result diagrams: 05/11/19 Unknown 05/11/19 Unknown - Radiology Data Radiology results: report reviewed - Medical Decision Making Patient is 58 years old female with history of end-stage renal disease on peritoneal dialysis. Patient presented to the ER complaining of left neck swelling and left upper chest swelling. Patient stated that she woke up with symptoms today. Patient denied any difficulty breathing or difficulty swallowing. Patient found to have a blood pressure of 206/101. Patient denied any headache, weakness numbness or tingling sensation. No bowel or bladder incontinence. Patient also denied any chest pain or shortness of breath. Patient remained asymptomatic. CT neck showed a left thyroid mass. Thyroid ultrasound scan confirmed a complex thyroid mass. Patient denied any difficulty breathing or difficulty swallowing. Patient strongly advised to follow-up with her primary care physician in the next 2-3 days for further evaluation of her thyroid mass. Patient also advised to return to the ER if symptoms are not improved. Critical care attestation.: If time is entered above; I have spent that time in minutes in the direct care of this critically ill patient, excluding procedure time. ED Disposition Clinical Impression: Localized swelling, mass and lump, neck, Thyroid mass Disposition: DC- TO HOME OR SELFCARE Is pt being admited?: No Condition: Stable Instructions: Thyroid Nodules (ED) Referrals: PRIMARY CARE, [Primary Care Provider] - 3-5 Days
[2019-05-11 14:32] LABS: Basophils % (Auto) 0.9 % (0.0-1.8); Eosinophils # (Auto) 0.3 K/mm3 (0.0-0.4); Eosinophils % (Auto) 5.7 % (0.0-4.3); Hemoglobin 10.9 gm/dl (10.1-14.3); Lymphocytes # (Auto) 0.8 K/mm3 (1.2-5.4); Lymphocytes % (Auto) 14.8 % (13.4-35.0); Mean Corpuscular HGB Conc 32 % (30-34); Mean Corpuscular Volume 95 fl (79-97); Monocytes # (Auto) 0.7 K/mm3 (0.0-0.8); Monocytes % (Auto) 13.7 % (0.0-7.3); Platelet Count 254 K/mm3 (140-440); Red Blood Count 3.58 M/mm3 (3.65-5.03); Red Cell Distribution Width 16.2 % (13.2-15.2)
--- NOTE | 2019-05-11 14:32 | Cat Scan Report ---
CT NECK WITH INTRAVENOUS CONTRAST AND MULTIPLANAR RECONSTRUCTION CLINICAL HISTORY: left neck swelling, ESRD on PD TECHNIQUE: 3.75 mm thick contiguous axial scans were obtained from the skull base down to the aortic arch during intravenous contrast administration. In addition to evaluation of axial source images sagittal and c oronal multiplanar reconstructions were produced and reviewed for this report. FINDINGS: Evaluation is limited by the absence of intravenous contrast. There is a 2.2 x 2.3 x 3.0 cm mass arising from the lower pole of the left lobe of the thyroid gland. Further evaluation with dedicated thyroid ultrasound is advised. Scans were obtained with the patient's vocal cords in apposition perhaps secondary to breath-holding or phase of respiration at the time of this study. Correlation with clinical adequacy the patient's a irway is suggested. No additional abnormalities are seen along the course of the airway. Nasopharynx, oropharynx, hypopharynx, larynx and visualized portions of the subglottic airway all have an otherwi se unremarkable appearance. There is no indication of cervical lymphadenopathy. No abnormalities are seen in evaluation of the oral cavity and tongue. The floor the mouth has a norm al appearance. The parotid and submandibular salivary glands have a normal appearance. Evaluation of the nasal cavity reveals no abnormality. The paranasal sinuses are free from inflammato ry mucosal disease. Evaluation of the orbits a reveals no abnormality. Evaluation of the cervical spine reveals no abnormality. Normal alignment is maintained. No significa nt degenerative changes are identified. Evaluation of the lung apices reveals no abnormality. There is no indication of lung nodule or infilt rate. The visualized portions of the superior mediastinum have an unremarkable appearance. Note is made of a right subclavian central venous catheter tip in the distal superior vena cava. IMPRESSION: 1. Left lower pole thyroid mass as described above. Further evaluation with thyroid ultrasound is sug gested. All CT imaging studies performed at this facility utilize dose modulation, iterative reconstruction o r weight based dosing, if appropriate, to obtain the lowest achievable radiation dose. Signer Name: Jackson Dunlap MD Signed: 05/11/2019 2:28 PM Workstation Name: [id number]
[2019-05-11 14:56] LABS: Albumin 2.5 g/dL (3.9-5); Calcium 7.6 mg/dL (8.4-10.2)
[2019-05-11 18:59] VITALS: BP 137/84
--- NOTE | 2019-05-11 19:01 | Ultrasound Report ---
ULTRASOUND THYROID INDICATION: left thyroid lobe mass/ abnormal ct neck. COMPARISON: CT neck without contrast from earlier today. FINDINGS: Right Lobe: Size: 4.4 x 1.1 x 1.2 cm. Echogenicity: Heterogeneous. Left Lobe: Size: 5.2 x 2.3 x 1.0 cm. Echogenicity: Heterogeneous. Isthmus: Normal in size and appearance, measuring 4 mm in thickness. Nodules: Numerous subcentimeter solid and cystic nodules are seen throughout the right thyroid lobe. The large st nodule is located along the lower pole and is solid and wider than tall with smooth margins, measu ring 0.6 x 0.3 x 0.5 cm without suspicious echogenic foci. Along the lower pole of the left lobe is a complex mass measuring 3.6 x 2.1 x 3.5 cm that correlates with the prior CT abnormality. Scattered subcentimeter nodules are seen along the remainder of the le ft thyroid lobe. Lymph nodes: No abnormal lymph nodes Additional findings: None. IMPRESSION: 1. Left thyroid mass as above. FNA biopsy is recommended for further evaluation if not performed prev iously. 2. Subcentimeter nodules throughout the thyroid gland with a dominant right nodule detected above. A follow-up thyroid ultrasound in one year is recommended. Signer Name: Sean Mederos MD Signed: 05/11/2019 6:57 PM Workstation Name: [id number]
== END 2019-05-11 19:38 | disposition home or self-care (01) ==
LOC: ED 12:55
DX: R22.1 Localized swelling, mass and lump, neck (principal); R22.0 Localized swelling, mass and lump, head; E04.1 Nontoxic single thyroid nodule; I10 Essential (primary) hypertension; G43.909 Migraine, unspecified, not intractable, without status migrainosus; Z86.711 Personal history of pulmonary embolism; Z90.49 Acquired absence of other specified parts of digestive tract; Z90.710 Acquired absence of both cervix and uterus; Z98.84 Bariatric surgery status; Z98.890 Other specified postprocedural states; Z87.891 Personal history of nicotine dependence; Z91.041 Radiographic dye allergy status; Z91.013 Allergy to seafood; Z88.8 Allergy status to other drugs, medicaments and biological substances; Z79.899 Other long term (current) drug therapy
CPT/HCPCS: 36415; 70490; 76536; 80053; 85025; 99284

== ENCOUNTER 2020-03-02 12:51 | Outpatient (CLI) | payer MEDICARE ==
--- NOTE | 2020-03-03 12:54 | Ultrasound Report ---
LEFT DIGITAL DIAGNOSTIC MAMMOGRAM WITH CAD 03/02/2020 LEFT LIMITED BREAST ULTRASOUND INDICATION: Abnormal screening mammogram. Screening recall of the left breast. TECHNIQUE: Digital left mammographic imaging was performed. Spot compression views were obtained. Li mited ultrasound was performed. This examination was interpreted with the benefit of Computer-Aided D etection (CAD) analysis. COMPARISON: Screening mammogram, 02/12/2020 FINDINGS: Breast Density: There are scattered areas of fibroglandular density. MAMMOGRAPHIC FINDINGS: Spot compression views of the left breast were obtained, which demonstrate brittany t the small focal asymmetry at the 6:00 position anterior depth appears significantly less prominent with spot compression views. It is most likely related to postsurgical changes from patient's previou s breast reduction surgery. ULTRASOUND FINDINGS: Targeted ultrasound evaluation was performed of the area of interest. Sonograp hic evaluation of the inferior aspect of the left breast demonstrates no evidence of suspicious solid mass or shadowing. Oval hypoechoic region measuring 1.1 cm is noted and most likely related to posts urgical change. IMPRESSION: Follow up recommendation: Short term follow up in 6 months. BI-RADS Category 3: Probably Benign. Followup in 6 months. The focal asymmetric density in the left breast 6:00 position has a benign mammographic appearance and is most likely related to previous michael st reduction surgery. Prior mammograms were obtained from outside facility but this disc was not comp atible with a computer system. In the absence of prior mammograms, a six-month follow-up left mammogr am is recommended to confirm stability and to serve as a basis for comparison. A "normal" or negative report should not discourage follow up or biopsy of a clinically significant f inding. A written summary of these findings will be mailed to the patient. The patient will be entered into a mammography reporting system which will generate a reminder letter for the patient's next appointmen t at the appropriate interval. According to the [employer], yearly mammograms are recommended starting at age 40 and continuing as long as a woman is in good health. Breast MRI is recommended for women with an laura roximately 20-25% or greater lifetime risk of breast cancer, including women with a strong family his tory of breast or ovarian cancer and women who have been treated for Hodgkin's disease. Signer Name: Lacie Toure MD Signed: 03/03/2020 12:49 PM Workstation Name: [id number]
== END 2020-03-02 12:52 | disposition home or self-care (01) ==
LOC: SPVWC 12:51
PROVIDERS: ATTEND Surgery
DX: R92.8 Other abnormal and inconclusive findings on diagnostic imaging of breast (principal)

== ENCOUNTER 2020-06-18 14:52 | Emergency (ER) | payer MEDICARE ==
--- NOTE | 2020-06-18 17:10 | Cat Scan Report ---
CT head/brain wo con INDICATION: Headache, hx of subdural hematoma. TECHNIQUE: Routine CT head without contrast. All CT scans at this location are performed using CT dos e reduction for ALARA by means of automated exposure control. COMPARISON: None. FINDINGS: BRAIN / INTRACRANIAL CONTENTS: There is a chronic-appearing large left cerebral convexity subdural he matoma measuring up to 2.3 cm in side to side dimension. There appear to be some webs or cystlike for mation in the collection. This is resulting in rightward midline shift of about 1 cm. There is no hyd rocephalus. There is no downward transtentorial herniation. There is maintenance of normal bobby-white differentiation. ORBITS: No significant abnormality of visualized orbits. SINUSES / MASTOIDS: No significant abnormality of visualized sinuses and mastoid air cells. ADDITIONAL FINDINGS: None. IMPRESSION: 1. Chronic appearing large left cerebral convexity subdural hematoma with resultant rightward midline shift. Signer Name: Dixon Olivas MD Signed: 06/18/2020 5:06 PM Workstation Name: [id number]
[2020-06-18 17:14] LABS: Albumin 2.6 g/dL (3.9-5); Calcium 6.6 mg/dL (8.4-10.2)
[2020-06-18 17:15] LABS: Basophils # (Auto) 0.1 K/mm3 (0.0-0.1); Basophils % (Auto) 1.3 % (0.0-1.8); Eosinophils # (Auto) 0.8 K/mm3 (0.0-0.4); Eosinophils % (Auto) 13.6 % (0.0-4.3); Hematocrit 28.8 % (30.3-42.9); Hemoglobin 9.4 gm/dl (10.1-14.3); Lymphocytes # (Auto) 0.9 K/mm3 (1.2-5.4); Lymphocytes % (Auto) 16.2 % (13.4-35.0); Mean Corpuscular HGB Conc 33 % (30-34); Mean Corpuscular Volume 94 fl (79-97); Monocytes # (Auto) 0.8 K/mm3 (0.0-0.8); Monocytes % (Auto) 13.8 % (0.0-7.3); Platelet Count 353 K/mm3 (140-440); Red Blood Count 3.06 M/mm3 (3.65-5.03); Red Cell Distribution Width 18.5 % (13.2-15.2)
--- NOTE | 2020-06-18 17:57 | Event Note ---
ED Screening Note Date of service: 06/18/20 Time: 17:56 ED Screening Note: Pt complains of bilateral headache, worse on left x 1 week denies hx of migraines +hx of subdural hematoma This initial assessment/diagnostic orders/clinical plan/treatment(s) is/are subject to change based on patients health status, clinical progression and re- assessment by fellow clinical providers in the ED. Further treatment and workup at subsequent clinical providers discretion. Patient/guardian urged not to elope from the ED as their condition may be serious if not clinically assessed and managed. Initial orders include: labs CT head
--- NOTE | 2020-06-19 03:30 | Emergency Department Report ---
ED Headache HPI - General Chief Complaint: Headache Stated Complaint: C/O ELDER Time Seen by Provider: 06/18/20 17:55 Source: patient Exam Limitations: no limitations - History of Present Illness Initial Comments: CC: headaches HPI: This is a 59-year-old female with history of end-stage renal disease on hemodialysis, hyperlipidemia, subdural hematoma who presents with headache for 8 to 9 days. She was evaluated by PCP 2 days ago who recommended ED evaluation. Patient has migrating headache. At times is at the left mormonism. At times it is at the right mormonism. Sharp dull headache. She also has frontal scalp tenderness without trauma or lesions. 2 years ago she was diagnosed with subdural hematoma at [facility]. She did not receive surgical intervention. She was observed in the hospital. She has not followed up with neurologist or neurosurgery since that hospitalization. She was told that she had 2 subdural hematomas. She denies trauma associated with the subdural hematomas. It appeared to be a spontaneous phenomenon.. Timing/Duration: 1 week (8 to 9 days) Quality: moderate, severe Head Injury Location: temporal Recent Head Trauma: occasional headaches Associated Symptoms: denies symptoms Allergies/Adverse Reactions: Allergies chlorhexidine Allergy (Verified 06/20/16 08:45) Itching hydralazine Allergy (Verified 06/06/16 14:28) Unknown shellfish derived Allergy (Verified 10/01/14 09:46) Swelling itching iodine Adverse Reaction (Verified 10/06/14 06:31) Swelling shortness of breath Home Medications: Ambulatory Orders Ergocalciferol (Vitamin D2) [Drisdol] 50,000 unit PO QWEEK 09/16/18 Hydrocortisone [Anucort-HC SUPPOS] 25 mg RC BID 09/16/18 Ondansetron [Zofran TAB] 4 mg PO Q8HR PRN 09/16/18 Zolpidem [Ambien] 10 mg PO QHS 09/16/18 AtorvaSTATin [Lipitor] 20 mg PO QHS #20 tablet 09/20/18 Cyclobenzaprine [Flexeril 10 MG TAB] 5 mg PO BID PRN #20 tablet 09/20/18 Pantoprazole [Protonix TAB] 40 mg PO DAILY #30 tablet 09/20/18 Sodium Bicarbonate 1,300 mg PO BID #60 tablet 09/20/18 bisacodyL [Dulcolax tab] 10 mg PO QDAY PRN #30 tablet 09/20/18 Ondansetron [Zofran Odt] 4 mg PO Q8HR PRN #14 tab.rapdis 05/11/19 traMADoL [Ultram] 50 mg PO Q6HR PRN #14 tablet 05/11/19 traMADoL [Ultram 50 MG tab] 50 mg PO Q4HR PRN #10 tablet 03/05/20 ED Review of Systems ROS: Stated complaint: C/O ELDER Other details as noted in HPI Comment: All other systems reviewed and negative Constitutional: denies: fever, malaise Respiratory: denies: cough, shortness of breath Cardiovascular: denies: chest pain Neurological: headache. denies: numbness, paresthesias, confusion, abnormal gait, vertigo ED Past Medical Hx - Past Medical History Previous Medical History?: Yes Hx Hypertension: Yes Hx Heart Attack/AMI: No Hx Congestive Heart Failure: No Hx Diabetes: No Hx Deep Vein Thrombosis: No Hx Pulmonary Embolism: Yes (20 YEARS AGO) Hx GERD: Yes Hx Liver Disease: No Hx Renal Disease: Yes (PD) Hx Sickle Cell Disease: No Hx Arthritis: No Hx Headaches / Migraines: Yes Hx Seizures: No Hx Kidney Stones: No Hx Asthma: No Hx COPD: No Hx Dementia: No Hx HIV: No Additional medical history: Bilateral Subdural Hematoma,Pancreatitis 02/2018, dialysis - Surgical History Past Surgical History?: Yes Hx Coronary Stent: No Hx Pacemaker: No Hx Internal Defibrillator: No Hx Cholecystectomy: Yes Hx Breast Surgery: Yes (BREAST AUGMENTATION BILATERAL ) Additional Surgical History: hysterectomy,gastric bypass, dialysis fistula left arm, Peritoneal Dialysis - Social History Smoking Status: Never Smoker Substance Use Type: None - Medications Home Medications: Home Medications Medication Instructions Recorded Confirmed Last Taken Type Ergocalciferol (Vitamin D2) 50,000 unit PO QWEEK 09/16/18 09/16/18 Unknown History [Drisdol] Hydrocortisone [Anucort-HC SUPPOS] 25 mg RC BID 09/16/18 09/16/18 Unknown History Ondansetron [Zofran TAB] 4 mg PO Q8HR PRN 09/16/18 09/16/18 Unknown History Zolpidem [Ambien] 10 mg PO QHS 09/16/18 09/16/18 Unknown History AtorvaSTATin [Lipitor] 20 mg PO QHS #20 tablet 09/20/18 Unknown Rx Cyclobenzaprine [Flexeril 10 MG 5 mg PO BID PRN #20 tablet 09/20/18 Unknown Rx TAB] Pantoprazole [Protonix TAB] 40 mg PO DAILY #30 tablet 09/20/18 Unknown Rx Sodium Bicarbonate 1,300 mg PO BID #60 tablet 09/20/18 Unknown Rx bisacodyL [Dulcolax tab] 10 mg PO QDAY PRN #30 tablet 09/20/18 Unknown Rx Ondansetron [Zofran Odt] 4 mg PO Q8HR PRN #14 tab.rapdis 05/11/19 Unknown Rx traMADoL [Ultram] 50 mg PO Q6HR PRN #14 tablet 05/11/19 Unknown Rx traMADoL [Ultram 50 MG tab] 50 mg PO Q4HR PRN #10 tablet 03/05/20 Unknown Rx ED Physical Exam - General Limitations: No Limitations General appearance: alert, in no apparent distress - Head Head exam: Present: atraumatic, normocephalic - Eye Eye exam: Present: normal appearance - ENT ENT exam: Present: mucous membranes moist - Neck Neck exam: Present: normal inspection, full ROM - Respiratory Respiratory exam: Present: normal lung sounds bilaterally. Absent: respiratory distress, wheezes, rales, rhonchi - Cardiovascular Cardiovascular Exam: Present: regular rate, normal rhythm, normal heart sounds. Absent: systolic murmur, diastolic murmur, rubs, gallop - GI/Abdominal GI/Abdominal exam: Present: soft, normal bowel sounds. Absent: distended, tenderness, guarding, rebound - Extremities Exam Extremities exam: Present: normal inspection - Back Exam Back exam: Present: normal inspection - Neurological Exam Neurological exam: Present: alert, oriented X3 - Psychiatric Psychiatric exam: Present: normal affect, normal mood - Skin Skin exam: Present: warm, dry, intact, normal color. Absent: rash ED Course Vital Signs 06/18/20 06/19/20 17:55 02:44 Temperature 98.3 F 98.0 F Pulse Rate 81 88 Respiratory 18 16 Rate Blood Pressure 139/109 122/78 [Right] O2 Sat by Pulse 100 98 Oximetry ED Medical Decision Making - Lab Data Result diagrams: 06/18/20 16:31 06/18/20 16:31 - Radiology Data Radiology results: report reviewed CT head/brain wo con INDICATION: Headache, hx of subdural hematoma. TECHNIQUE: Routine CT head without contrast. All CT scans at this location are performed using CT dose reduction for ALARA by means of automated exposure control. COMPARISON: None. FINDINGS: BRAIN / INTRACRANIAL CONTENTS: There is a chronic-appearing large left cerebral convexity subdural hematoma measuring up to 2.3 cm in side to side dimension. There appear to be some webs or cystlike formation in the collection. This is resulting in rightward midline shift of about 1 cm. There is no hydrocephalus. There is no downward transtentorial herniation. There is maintenance of normal bobby- white differentiation. ORBITS: No significant abnormality of visualized orbits. SINUSES / MASTOIDS: No significant abnormality of visualized sinuses and mastoid air cells. ADDITIONAL FINDINGS: None. IMPRESSION: 1. Chronic appearing large left cerebral convexity subdural hematoma with resultant rightward midline shift. - Medical Decision Making Mrs. Rossi 59-year-old female with history of end-stage renal disease on hemodialysis. History of subdural hematoma 2 years ago treated conservatively. CT head without contrast today revealed large left subdural hematoma chronic with midline shift. I spoke with neurosurgeon Dr. Soliz who admitted the patient directly at [facility]. I also discussed case with transfer nurse that we will start to ensure bed si tuation. Patient does have a bed assignment and will be transferred at 7 AM. Critical Care Time: Yes Critical care time in (mins) excluding proc time.: 40 Critical care attestation.: If time is entered above; I have spent that time in minutes in the direct care of this critically ill patient, excluding procedure time. 40 minutes of critical care time excluding procedures were used in the care of the patient. I discussed treatment plan with the nursing team members. I reviewed electronic record. Patient required multiple interventions and reassessments. I discussed case with neurosurgeon. Had extensive conversation with transfer center nurse. ED Disposition Clinical Impression: Subdural hematoma, chronic, Acute headache Disposition: DC/TX-70 ANOTHER TYPE HLTHCARE Is pt being admited?: No Does the pt Need Aspirin: No Condition: Stable
[2020-06-19 06:41] VITALS: BP 152/77
== END 2020-06-19 08:06 | disposition other institution (70) ==
LOC: ED 14:52
DX: S06.5X9A Traumatic subdural hemorrhage with loss of consciousness of unspecified duration, initial encounter (principal); I10 Essential (primary) hypertension; K21.9 Gastro-esophageal reflux disease without esophagitis; G43.909 Migraine, unspecified, not intractable, without status migrainosus; Z90.710 Acquired absence of both cervix and uterus; Z90.49 Acquired absence of other specified parts of digestive tract; Z79.899 Other long term (current) drug therapy; Z88.6 Allergy status to analgesic agent; Z91.013 Allergy to seafood; X58.XXXA Exposure to other specified factors, initial encounter; Y93.89 Activity, other specified; Y92.89 Other specified places as the place of occurrence of the external cause; Y99.8 Other external cause status
CPT/HCPCS: 36415; 70450; 80053; 85025

== ENCOUNTER 2020-08-03 16:47 | Emergency (ER) | payer MEDICARE ==
--- NOTE | 2020-08-03 20:07 | Event Note ---
ED Screening Note Date of service: 08/03/20 Time: 20:05 ED Screening Note: This is a 59-year-old female presents the ED complaining of lower back and buttock. Status post fall downstairs today. Patient states that she was going up the stairs when she fell on her back/buttock after slipping of the first couple of steps. This initial assessment/diagnostic orders/clinical plan/treatment(s) is/are subject to change based on patients health status, clinical progression and re- assessment by fellow clinical providers in the ED. Further treatment and workup at subsequent clinical providers discretion. Patient/guardian urged not to elope from the ED as their condition may be serious if not clinically assessed and managed. Initial orders include: Lumbar and pelvic x-rays.
--- NOTE | 2020-08-03 21:13 | XRay Report ---
PELVIS 1 VIEW(S) INDICATION / CLINICAL INFORMATION: pain COMPARISON: None available. FINDINGS: BONES / JOINT(S): No acute fracture or subluxation. Mild right hip osteoarthritis. SOFT TISSUES: No significant abnormality. ADDITIONAL FINDINGS: Nonspecific drainage catheter projects within the lower abdomen. IVC filter is p artially imaged. IMPRESSION: No acute osseous findings of the pelvis. Signer Name: Duncan Jackman MD Signed: 08/03/2020 9:08 PM Workstation Name: [id number]
--- NOTE | 2020-08-03 21:14 | XRay Report ---
XR spine lumbosacral 2-3V INDICATION / CLINICAL INFORMATION: pain s/p fall. COMPARISON: None FINDINGS: BONES/JOINT(S): There is mild right convex curvature of the lumbar spine. Lumbar spinal alignment is preserved. Mild superior endplate deformity of L2 is consistent with a Schmorl's node, as demonstrate d on CT from 2019. Vertebral body heights are otherwise preserved. No evidence of acute fracture. Lum bar disc spaces are maintained. PARASPINAL SOFT TISSUES:No significant abnormality. ADDITIONAL FINDINGS: IVC filter noted. Drainage catheters partially imaged overlying the abdomen. Cho lecystectomy clips and surgical clips in the left upper abdomen. IMPRESSION: 1. No acute findings. Signer Name: Duncan Jackman MD Signed: 08/03/2020 9:09 PM Workstation Name: [id number]
--- NOTE | 2020-08-03 23:08 | Emergency Department Report ---
ED Fall HPI - General Chief Complaint: Back Pain/Injury Stated Complaint: BACK PAIN Time Seen by Provider: 08/03/20 22:46 Source: patient Mode of arrival: Ambulatory - History of Present Illness Initial Comments: 59-year-old end-stage renal disease patient currently on dialysis presents emerge department few hours status post misstep and fall back landing on her buttock states she was carrying items upstairs and when she got to the second or third step she lost her footing slipped fell backwards landing onto her butt standing up pain shooting up her back that she felt a couple of hours following the fall. Reports no saddle paresthesia no loss of bowel or or bladder reports no hematuria no fever chills sweats no vaginal bleeding but pain to the lower back does radiate through to the suprapubic/pelvic region. She reports no bruising no discoloration. Prolonged Down Time?: no Symptoms Prior to Fall: none (Fall was mechanical) Location: back Severity: moderate Quality: dull, aching Associated Symptoms: other - Related Data Home Medications Medication Instructions Recorded Confirmed Last Taken Ergocalciferol (Vitamin D2) 50,000 unit PO QWEEK 09/16/18 09/16/18 Unknown [Drisdol] Hydrocortisone [Anucort-HC SUPPOS] 25 mg RC BID 09/16/18 09/16/18 Unknown Ondansetron [Zofran TAB] 4 mg PO Q8HR PRN 09/16/18 09/16/18 Unknown Zolpidem (Nf) [Ambien (Nf)] 10 mg PO QHS 09/16/18 09/16/18 Unknown Previous Rx's Medication Instructions Recorded Last Taken Type AtorvaSTATin [Lipitor] 20 mg PO QHS #20 tablet 09/20/18 Unknown Rx Cyclobenzaprine [Flexeril 10 MG 5 mg PO BID PRN #20 tablet 09/20/18 Unknown Rx TAB] Pantoprazole [Protonix TAB] 40 mg PO DAILY #30 tablet 09/20/18 Unknown Rx Sodium Bicarbonate 1,300 mg PO BID #60 tablet 09/20/18 Unknown Rx bisacodyL [Dulcolax tab] 10 mg PO QDAY PRN #30 tablet 09/20/18 Unknown Rx Ondansetron [Zofran Odt] 4 mg PO Q8HR PRN #14 tab.rapdis 05/11/19 Unknown Rx traMADoL [Ultram] 50 mg PO Q6HR PRN #14 tablet 05/11/19 Unknown Rx traMADoL [Ultram 50 MG tab] 50 mg PO Q4HR PRN #10 tablet 03/05/20 Unknown Rx Acetaminophen/Codeine [Tylenol 1 tab PO Q6H PRN #8 tab 08/03/20 Unknown Rx /Codeine # 3 tab] methOCARBAMOL [Robaxin TAB] 500 mg PO BID #10 tab 08/03/20 Unknown Rx Allergies Allergy/AdvReac Type Severity Reaction Status Date / Time chlorhexidine Allergy Itching Verified 06/20/16 08:45 hydralazine Allergy Unknown Verified 06/06/16 14:28 shellfish derived Allergy Swelling Verified 10/01/14 09:46 iodine AdvReac Swelling Verified 10/06/14 06:31 ED Review of Systems ROS: Stated complaint: BACK PAIN Other details as noted in HPI Comment: All other systems reviewed and negative ED Past Medical Hx - Past Medical History Previous Medical History?: Yes Hx Hypertension: Yes Hx Heart Attack/AMI: No Hx Congestive Heart Failure: No Hx Diabetes: No Hx Deep Vein Thrombosis: No Hx Pulmonary Embolism: Yes (20 YEARS AGO) Hx GERD: Yes Hx Liver Disease: No Hx Renal Disease: Yes (PD) Hx Sickle Cell Disease: No Hx Arthritis: No Hx Headaches / Migraines: Yes Hx Seizures: No Hx Kidney Stones: No Hx Asthma: No Hx COPD: No Hx Dementia: No Hx HIV: No Additional medical history: Bilateral Subdural Hematoma,Pancreatitis 02/2018, dialysis - Surgical History Past Surgical History?: Yes Hx Coronary Stent: No Hx Pacemaker: No Hx Internal Defibrillator: No Hx Cholecystectomy: Yes Hx Breast Surgery: Yes (BREAST AUGMENTATION BILATERAL ) Additional Surgical History: hysterectomy,gastric bypass, dialysis fistula left arm, Peritoneal Dialysis - Social History Smoking Status: Never Smoker Substance Use Type: None - Medications Home Medications: Home Medications Medication Instructions Recorded Confirmed Last Taken Type Ergocalciferol (Vitamin D2) 50,000 unit PO QWEEK 09/16/18 09/16/18 Unknown History [Drisdol] Hydrocortisone [Anucort-HC SUPPOS] 25 mg RC BID 09/16/18 09/16/18 Unknown History Ondansetron [Zofran TAB] 4 mg PO Q8HR PRN 09/16/18 09/16/18 Unknown History Zolpidem (Nf) [Ambien (Nf)] 10 mg PO QHS 09/16/18 09/16/18 Unknown History AtorvaSTATin [Lipitor] 20 mg PO QHS #20 tablet 09/20/18 Unknown Rx Cyclobenzaprine [Flexeril 10 MG 5 mg PO BID PRN #20 tablet 09/20/18 Unknown Rx TAB] Pantoprazole [Protonix TAB] 40 mg PO DAILY #30 tablet 09/20/18 Unknown Rx Sodium Bicarbonate 1,300 mg PO BID #60 tablet 09/20/18 Unknown Rx bisacodyL [Dulcolax tab] 10 mg PO QDAY PRN #30 tablet 09/20/18 Unknown Rx Ondansetron [Zofran Odt] 4 mg PO Q8HR PRN #14 tab.rapdis 05/11/19 Unknown Rx traMADoL [Ultram] 50 mg PO Q6HR PRN #14 tablet 05/11/19 Unknown Rx traMADoL [Ultram 50 MG tab] 50 mg PO Q4HR PRN #10 tablet 03/05/20 Unknown Rx Acetaminophen/Codeine [Tylenol 1 tab PO Q6H PRN #8 tab 08/03/20 Unknown Rx /Codeine # 3 tab] methOCARBAMOL [Robaxin TAB] 500 mg PO BID #10 tab 08/03/20 Unknown Rx ED Physical Exam - General Limitations: No Limitations General appearance: alert, in no apparent distress - Head Head exam: Present: atraumatic, normocephalic - Eye Eye exam: Present: normal appearance, PERRL, EOMI Pupils: Present: normal accommodation - ENT ENT exam: Present: normal exam, normal orophraynx, mucous membranes moist, TM's normal bilaterally - Neck Neck exam: Present: normal inspection - Respiratory Respiratory exam: Present: normal lung sounds bilaterally. Absent: respiratory distress - Cardiovascular Cardiovascular Exam: Present: regular rate, normal rhythm. Absent: systolic murmur, diastolic murmur, rubs, gallop - GI/Abdominal GI/Abdominal exam: Present: soft, normal bowel sounds - Extremities Exam Extremities exam: Present: normal inspection, normal capillary refill - Back Exam Back exam: Present: normal inspection, tenderness, paraspinal tenderness, vertebral tenderness. Absent: CVA tenderness (R), CVA tenderness (L), muscle spasm - Neurological Exam Neurological exam: Present: alert, oriented X3, CN II-XII intact - Psychiatric Psychiatric exam: Present: normal affect, normal mood - Skin Skin exam: Present: warm, dry, intact, normal color. Absent: rash ED Course Vital Signs 08/03/20 17:32 Temperature 98.3 F Pulse Rate 71 Respiratory 18 Rate Blood Pressure 107/64 O2 Sat by Pulse 100 Oximetry ED Medical Decision Making - Radiology Data Radiology results: report reviewed [address] [address] XRay Report Signed Patient: AYAKA DE JESUS MR#: [id number] : 1960 Acct:[id number] Age/Sex: 59 / F ADM Date: 08/03/20 Loc: ED Attending Dr: Ordering Physician: YOHAN BOWMAN Date of Service: 08/03/20 Procedure(s): XR spine lumbosacral 2-3V Accession Number(s): [id number] cc: YOHAN BOWMAN Fluoro Time In Minutes: XR spine lumbosacral 2-3V INDICATION / CLINICAL INFORMATION: pain s/p fall. COMPARISON: None FINDINGS: BONES/JOINT(S): There is mild right convex curvature of the lumbar spine. Lumbar spinal alignment is preserved. Mild superior endplate deformity of L2 is consistent with a Schmorl's node, as demonstrated on CT from 2019. Vertebral body heights are otherwise preserved. No evidence of acute fracture. Lumbar disc spaces are maintained. PARASPINAL SOFT TISSUES:No significant abnormality. ADDITIONAL FINDINGS: IVC filter noted. Drainage catheters partially imaged overlying the abdomen. Cholecystectomy clips and surgical clips in the left upper abdomen. IMPRESSION: 1. No acute findings. Signer Name: Allison Jackman MD Signed: 08/03/2020 9:09 PM Workstation Name: [id number] Transcribed By: CAMILA Dictated By: ALLISON JACKMAN MD Electronically Authenticated By: ALLISON JACKMAN MD Signed Date/Time: 08/03/202108 DD/ 07 TD/TT: [address] [address] XRay Report Signed Patient: AYAKA DE JESUS MR#: [id number] : 1960 Acct:[id number] Age/Sex: 59 / F ADM Date: 08/03/20 Loc: ED Attending Dr: Ordering Physician: YOHAN BOWMAN Date of Service: 08/03/20 Procedure(s): XR pelvis 1-2V Accession Number(s): [id number] cc: YOHAN BOWMAN Fluoro Time In Minutes: PELVIS 1 VIEW(S) INDICATION / CLINICAL INFORMATION: pain COMPARISON: None available. FINDINGS: BONES / JOINT(S): No acute fracture or subluxation. Mild right hip osteoarthritis. SOFT TISSUES: No significant abnormality. ADDITIONAL FINDINGS: Nonspecific drainage catheter projects within the lower abdomen. IVC filter is partially imaged. IMPRESSION: No acute osseous findings of the pelvis. Signer Name: Allison Jackman MD Signed: 08/03/2020 9:08 PM Workstation Name: [id number] Transcribed By: Dictated By: ALLISON JACKMAN MD Electronically Authenticated By: ALLISON JACKMAN MD Signed Date/Time: 08/03/202107 DD/ 06 TD/TT: - Medical Decision Making Pt presents the emergency department complaining of back pain most consistent with lumbago with radicular pain back Pain Most Consistent with Strain/Contusion. Differential Diagnosis Includes Lumbar Go Versus Musculoskeletal Spasm, Strain Versus Sciatica. No Back Pain Red Flags on History or Physical. Presentation Not Consistent with Malignancy, Fracture, Cauda Equina, Abdominal Aortic Aneurysm, Viscus Perforation, Pulmonary Embolism, Renal Colic, Pyelonephritis. Patient reports no B symptoms, trauma trauma, incontinence, saddle anesthesia, distal weakness, urinary symptoms and is a febrile. Critical care attestation.: If time is entered above; I have spent that time in minutes in the direct care of this critically ill patient, excluding procedure time. ED Disposition Clinical Impression: Fall, Back pain, Low back pain radiating to lower extremity Disposition: - TO HOME OR SELFCARE Is pt being admited?: No Does the pt Need Aspirin: No Condition: Stable Instructions: Back Injury Prevention, [id number], Radicular Pain, Acute Back Pain, Adult, Fall Prevention in the Home, Adult Prescriptions: methOCARBAMOL [Robaxin TAB] 500 mg PO BID #10 tab Acetaminophen/Codeine [Tylenol /Codeine # 3 tab] 1 tab PO Q6H PRN #8 tab PRN Reason: pain Referrals: SALUD ANTHONY JR, MD [Primary Care Provider] - 3-5 Days
[2020-08-03] MEDS ORDERED: HYDROcodone/ACETAMINOPHEN 5-325 MG TAB PO STA (23:29)
[2020-08-04 00:21] VITALS: BP 145/85
== END 2020-08-04 | disposition home or self-care (01) ==
LOC: ED 16:47
DX: M54.5 Low back pain (principal); I10 Essential (primary) hypertension; K21.9 Gastro-esophageal reflux disease without esophagitis; G43.909 Migraine, unspecified, not intractable, without status migrainosus; Z98.890 Other specified postprocedural states; Z79.899 Other long term (current) drug therapy; Z91.013 Allergy to seafood; Z88.8 Allergy status to other drugs, medicaments and biological substances; W10.9XXA Fall (on) (from) unspecified stairs and steps, initial encounter; Y93.89 Activity, other specified; Y92.89 Other specified places as the place of occurrence of the external cause; Y99.8 Other external cause status
CPT/HCPCS: 72100; 72170; 99283

== ENCOUNTER 2020-08-25 13:00 | Outpatient (CLI) | payer MEDICARE ==
--- NOTE | 2020-08-25 14:09 | Mammography Report ---
LEFT DIAGNOSTIC MAMMOGRAM INDICATION: Follow-up evaluation of finding noted previously in the left breast. COMPARISON: 03/02/2020, 02/12/2020. FINDINGS: Mammographic views of the left breast were obtained to evaluate the site of a previously no chinyere finding which was seen in the left inferior breast. The finding appears much less prominent on th e current views and demonstrates a mammographic appearance most consistent with postreduction scarrin g. No interval detrimental change. No new suspicious finding is identified. IMPRESSION: No evidence of malignancy. Recommend annual screening mammogram when patient is due. Of note, the old est mammogram performed here was on 02/12/2020. However, it is reported that the patient has older mamm ograms at an outside facility which were never able to be reviewed. Correlation with patient's prior mammogram dates is recommended to ensure appropriate timing of annual screening mammogram. BI-RADS Category 2: Benign. Recommend routine screening mammography in one year A "normal" or negative report should not discourage follow up or biopsy of a clinically significant f inding. A written summary of these findings will be mailed to the patient. FURTHER INFORMATION: According to the [employer], yearly mammograms are recommend ed starting at age 40 and continuing as long as a woman is in good health. Breast MRI is recommended for women with an approximately 20-25% or greater lifetime risk of breast cancer, including women wi th a strong family history of breast or ovarian cancer and women who have been treated for Hodgkin's disease. Signer Name: Bud Phillips MD Signed: 08/25/2020 2:05 PM Workstation Name: [id number]
== END 2020-08-25 13:01 | disposition home or self-care (01) ==
LOC: SPVWC 13:00
PROVIDERS: ATTEND Surgery
DX: R92.8 Other abnormal and inconclusive findings on diagnostic imaging of breast (principal)